=== PATIENT | female | born 1970 | race Caucasian/White ===

== ENCOUNTER → 2016-10-11 | Outpatient (CLI) | payer MEDICARE, MEDICAID | LOC: WI 13:04 | PROVIDERS: ATTEND Nurse Practitioner | DX: Z12.31 Encounter for screening mammogram for malignant neoplasm of breast (principal) | CPT/HCPCS: 77063; G0202; 77067 ==

== ENCOUNTER → 2017-11-28 | Outpatient (CLI) | payer MEDICARE, MEDICAID ==
--- NOTE | 2017-11-28 15:13 | WOMENS IMAGING REPORT ---
EXAM DESCRIPTION: 3D SCREENING MAMMO BILAT COMPLETED DATE/TIME: 11/28/2017 1:51 pm REASON FOR STUDY: ROUTINE SCREENING;Z12.31 Z12.31 ENCNTR SCREEN MAMMOGRAM FOR MALIGNANT NEOPLASM OF [place] COMPARISON: 2017 TECHNIQUE: Standard craniocaudal and mediolateral oblique views of each breast recorded using digita l acquisition and breast tomosynthesis. LIMITATIONS: None. FINDINGS: No masses, calcifications or architectural distortion. No areas of suspicion. Read with the assistance of CAD. .[facility] - R2 Cenova Version 1.3 .[facility] - R2 Cenova Version 1.3 .[facility] - R2 Cenova Version 2.4 .[facility] [place] Cenova [place] 2.4 .[facility] - R2 Seed [employer]one Picker Version 9.2 IMPRESSION: NORMAL MAMMOGRAM. BIRADS 1. BREAST DENSITY: d. The breasts are extremely dense, which lowers the sensitivity of mammography. BIRAD: 1 NEGATIVE RECOMMENDATION: ROUTINE SCREENING COMMENT: The patient has been notified of the results by letter per SA requirements. Additional no tification policies are in place for contacting patient with suspicious or incomplete findings. Quality ID #[id number]: The [employer] recommends an annual screening mammogram for women aged 40 years or over. This facility utilizes a reminder system to ensure that all patients receive reminder letters, and/or direct phone calls for appointments. This includes reminders for routine scr eening mammograms, diagnostic mammograms, or other Breast Imaging Interventions when appropriate. Th is patient will be placed in the appropriate reminder system. The [employer] (ACR) has developed recommendations for screening MRI of the breast s in certain patient populations, to be used in conjunction with mammography. Breast MRI surveillanc e may be appropriate for women with more than 20% lifetime risk of developing breast cancer as deter mined by genetic testing, significant family history of the disease, or history of mantle radiation f or Hodgkins Disease. ACR Practice Guidelines 2008. DBT Technology DBT is a type of tomographic mammography. With conventional mammography, overlapping breast tissue ma y make lesions difficult to detect, even with good compression. DBT uses an x-ray tube that rotates a round the breast, taking images at different angles. These images are then combined to create thin sl ices of the breast that the radiologist can view as a 3D reconstruction. The [facility] unit can perform full-field digital mammograms (2D imaging); or DBT (3D imaging); or both, in a combination mode that quickly performs both the mammogram and the tomosynthesis scan while the breast is still compressed. PQRS 6045F: Fluoroscopic imaging is not utilized for breast tomosynthesis. TECHNICAL DOCUMENTATION: FINDING NUMBER: (1) ASSESSMENT: (1) JOB ID: [id number] [employer]- All Rights Reserved Reading location - IP/workstation name: [id number]
== END ==
LOC: WI 13:21
PROVIDERS: ATTEND Nurse Practitioner
DX: Z12.31 Encounter for screening mammogram for malignant neoplasm of breast (principal)
CPT/HCPCS: 77063; 77067

== ENCOUNTER 2019-05-09 17:38 | Emergency (ER) | payer MEDICARE, MEDICAID ==
[2019-05-09] MEDS ORDERED: DEXTROSE 50%-WATER 25 GM/50 ML DISP.SYRIN IV ONE (17:43)
--- NOTE | 2019-05-09 17:54 | ER Document Report ---
ED Medical Screen (RME) - General Chief Complaint: Low Blood Sugar Stated Complaint: ABNORMAL LABS Time Seen by Provider: 05/09/19 17:42 Primary Care Provider: ROD DECKER FNP [Primary Care Provider] - Follow up as needed Mode of Arrival: Ambulatory Information source: Patient Notes: 49-year-old female presented to ED with her . While she was here she states she thought her blood sugar dropping. Her Accu-Chek was 38. She was given orange juice peanut butter crackers and D50 IV. Labs have been sent to include a VBG and lactic acid. Patient is alert oriented respirations regular and unlabored she was able to drink the orange juice and eat a peanut butter and crackers. I have greeted and performed a rapid initial assessment of this patient. A comprehensive ED assessment and evaluation of the patient, analysis of test results and completion of medical decision making process will be conducted by an additional ED providers. TRAVEL OUTSIDE OF THE [place] IN LAST 30 DAYS: No - Related Data Allergies/Adverse Reactions: aspirin [Aspirin] Allergy (Unknown, Verified 05/09/19 17:41) Past Medical History - Social History Family history: None Pulmonary Medical History: Denies: Hx Tuberculosis Endocrine Medical History: Reports: Hx Diabetes Mellitus Type 1 Skin Medical History: Denies Hx MRSA Psychiatric Medical History: Reports: Hx Depression - Immunizations Hx Diphtheria, Pertussis, Tetanus Vaccination: Yes Doctor's Discharge - Discharge Referrals: ROD DECKER FNP [Primary Care Provider] - Follow up as needed
[2019-05-09 18:15] LABS: ABSOLUTE BASOPHILS # (AUTO) 0.1 10^3/uL (0.0-0.2); ABSOLUTE EOSINOPHILS # (AUTO) 0.1 10^3/uL (0.0-0.6); ABSOLUTE LYMPHOCYTES (AUTO) 1.9 10^3/uL (0.5-4.7); ABSOLUTE MONOCYTES (AUTO) 0.8 10^3/uL (0.1-1.4); ABSOLUTE NEUT (AUTO) 4.6 10^3/uL (1.7-8.2); BASOPHILS % (AUTO) 1.3 % (0-2); EOSINOPHILS % (AUTO) 1.4 % (0-6); HEMATOCRIT 35.3 % (36.0-47.0); HEMOGLOBIN 11.6 g/dL (12.0-15.5); LYMPHOCYTES % (AUTO) 25.5 % (13-45); MEAN CORPUSCULAR HEMOGLOBIN 29.6 pg (27.0-33.4); MEAN CORPUSCULAR HGB CONC 32.8 g/dL (32.0-36.0); MEAN CORPUSCULAR VOLUME 90 fl (80-97); MONOCYTES % (AUTO) 10.7 % (3-13); PLATELET COUNT 345 10^3/uL (150-450); RED BLOOD COUNT 3.92 10^6/uL (3.72-5.28); RED CELL DISTRIBUTION WIDTH 15.4 % (11.5-14.0); SEGMENTED NEUTROPHILS % (AUTO) 61.1 % (42-78); TOTAL CELLS COUNTED % (AUTO) 100 %; WHITE BLOOD COUNT 7.5 10^3/uL (4.0-10.5)
[2019-05-09 18:25] LABS: VENOUS BLOOD BASE EXCESS 0.7 mmol/L; VENOUS BLOOD HCO3 27.2 mmol/L (20-32); VENOUS BLOOD PCO2 52.3 mmHg (35-63); VENOUS BLOOD PH 7.33 (7.30-7.42)
[2019-05-09 18:30] LABS: ALBUMIN 3.6 g/dL (3.5-5.0); ALKALINE PHOSPHATASE 63 U/L (38-126); ANION GAP 8 (5-19); ASPARTATE AMINO TRANSFERASE 78 U/L (14-36); BILIRUBIN,DIRECT 0.1 mg/dL (0.0-0.4); BILIRUBIN,TOTAL 0.3 mg/dL (0.2-1.3); BLOOD UREA NITROGEN 8 mg/dL (7-20); CALCIUM 9.3 mg/dL (8.4-10.2); CARBON DIOXIDE 27 mmol/L (22-30); CHLORIDE 107 mmol/L (98-107); POTASSIUM 3.4 mmol/L (3.6-5.0); TOTAL PROTEIN 6.8 g/dL (6.3-8.2)
[2019-05-09 18:43] LABS: GLUCOSE 36 mg/dL (75-110)
--- NOTE | 2019-05-09 18:59 | ER Document Report ---
ED General - General Chief Complaint: Low Blood Sugar Stated Complaint: ABNORMAL LABS Time Seen by Provider: 05/09/19 17:42 Primary Care Provider: ROD DECKER FNP [Primary Care Provider] - Follow up as needed Mode of Arrival: Ambulatory TRAVEL OUTSIDE OF THE [place] IN LAST 30 DAYS: No - HPI Notes: Patient is a 49-year-old female, known diabetic, presents to the emergency department for evaluation of low blood sugar. Actually she was here with her , who had chest pain. He was brought in for further evaluation. While here she felt as if her sugar was dropping. She was diaphoretic. Her blood sugar was checked and found to be in the 30s. She just recently started Tresiba. She states this was about 6 weeks ago. She states she has had a few lows in the last week. She states she would late eating dinner tonight, so she believes that to be the cause. She has had no vomiting. No other changes in diet or activity level. She denies any pain of any sort. Past Medical History - General Information source: Patient - Social History Smoking Status: Former Smoker Chew tobacco use (# tins/day): No Frequency of alcohol use: Rare Drug Abuse: None Family History: Reviewed & Not Pertinent Patient has suicidal ideation: No Patient has homicidal ideation: No Pulmonary Medical History: Denies: Hx Tuberculosis Endocrine Medical History: Reports: Hx Diabetes Mellitus Type 1 Skin Medical History: Denies Hx MRSA Psychiatric Medical History: Reports: Hx Depression - Immunizations Hx Diphtheria, Pertussis, Tetanus Vaccination: Yes Review of Systems - Review of Systems Constitutional: See HPI EENT: No symptoms reported Cardiovascular: No symptoms reported Respiratory: No symptoms reported Gastrointestinal: No symptoms reported Genitourinary: No symptoms reported Musculoskeletal: No symptoms reported Skin: No symptoms reported Neurological/Psychological: No symptoms reported Physical Exam - Vital signs Vitals: Temp Pulse Resp BP Pulse Ox 97.8 F 87 15 113/69 96 05/09/19 20:37 05/09/19 20:37 05/09/19 20:37 05/09/19 20:37 05/09/19 20:37 - Notes Notes: Vital signs reviewed, please refer to chart. Head is normocephalic, atraumatic. Pupils equal round, reactive to light. Neck is supple without meningismus. Heart is regular rate and rhythm. Lungs are clear to auscultation bilaterally. Abdomen is soft, nontender, normoactive bowel sounds throughout. Extremities without cyanosis, clubbing. Posterior calves are nontender. Peripheral pulses are equal. Skin is warm and dry. Patient is awake, alert, neurological exam is nonfocal. Course - Re-evaluation Re-evalutation: 05/09/19 18:59 Patient presents emergency department for evaluation. Her initial blood glucose was extremely low. She was given dextrose. She became awake and alert. Recheck blood glucose was in the 80s. She is further given food. We will continue to monitor. 05/09/19 20:41 Patient's blood sugar remained within normal limits. She is feeling improved. She is when she needs to continue eating regular meals, discuss whether or not her current insulin dose is appropriate. She voiced understanding to this and was discharged. - Vital Signs Vital signs: Temp Pulse Resp BP Pulse Ox 97.8 F 87 15 113/69 96 05/09/19 20:37 05/09/19 20:37 05/09/19 20:37 05/09/19 20:37 05/09/19 20:37 - Laboratory Result Diagrams: 05/09/19 17:50 05/09/19 17:50 Laboratory results interpreted by me: 05/09/19 05/09/19 05/09/19 17:50 17:50 20:19 Hgb 11.6 L Hct 35.3 L RDW 15.4 H Potassium 3.4 L Creatinine 0.42 L Glucose 36 L* POC Glucose 117 H AST 78 H Discharge - Discharge Clinical Impression: Hypoglycemia Condition: Stable Disposition: HOME, SELF-CARE Instructions: Hypoglycemia ([facility]) Additional Instructions: He should follow-up with your primary care physician next week. Please try to eat your meals at regular intervals. He should discuss with your primary care provider whether your insulin dose is appropriate for you at this time. If you develop worsening or new concerning symptoms of any sort, return immediately to the emergency department for evaluation. Referrals: ROD DECKER FNP [Primary Care Provider] - Follow up as needed
[2019-05-09] MEDS ORDERED: ACETAMINOPHEN 325 MG TABLET ONE (20:26)
[2019-05-09 20:38] VITALS: BP 113/69
== END 2019-05-09 20:45 | disposition home or self-care (01) ==
LOC: ER 17:38
DX: E10.649 Type 1 diabetes mellitus with hypoglycemia without coma (principal); Z87.891 Personal history of nicotine dependence
CPT/HCPCS: 99283; 96374; 36415; 82962; 83690; 85025; 80053; 82803; A9270; J3490

== ENCOUNTER 2019-10-23 13:06 | Inpatient (IN) | payer MEDICARE, MEDICAID ==
[2019-10-23] MEDS ORDERED: DILTIAZEM HCL/D5W 125 MG/125 ML RTUINJ IV PRN (13:39)
[2019-10-23] MEDS ORDERED: DILTIAZEM HCL INJ 25 MG/5 ML VIAL IV ONE (13:39)
[2019-10-23] MEDS ORDERED: NORMAL SALINE 1000 ML 1,000 ML IV ONE (13:39)
[2019-10-23 13:44] LABS: ABSOLUTE BASOPHILS # (AUTO) 0.1 10^3/uL (0.0-0.2); ABSOLUTE EOSINOPHILS # (AUTO) 0.1 10^3/uL (0.0-0.6); ABSOLUTE LYMPHOCYTES (AUTO) 1.3 10^3/uL (0.5-4.7); ABSOLUTE MONOCYTES (AUTO) 0.4 10^3/uL (0.1-1.4); ABSOLUTE NEUT (AUTO) 4.6 10^3/uL (1.7-8.2); EOSINOPHILS % (AUTO) 2.1 % (0-6); HEMATOCRIT 37.1 % (36.0-47.0); HEMOGLOBIN 12.6 g/dL (12.0-15.5); LYMPHOCYTES % (AUTO) 19.9 % (13-45); MEAN CORPUSCULAR HEMOGLOBIN 30.6 pg (27.0-33.4); MEAN CORPUSCULAR HGB CONC 33.9 g/dL (32.0-36.0); MEAN CORPUSCULAR VOLUME 90 fl (80-97); MONOCYTES % (AUTO) 5.9 % (3-13); PLATELET COUNT 276 10^3/uL (150-450); RED BLOOD COUNT 4.11 10^6/uL (3.72-5.28); RED CELL DISTRIBUTION WIDTH 16.4 % (11.5-14.0); SEGMENTED NEUTROPHILS % (AUTO) 71.1 % (42-78); TOTAL CELLS COUNTED % (AUTO) 100 %; WHITE BLOOD COUNT 6.4 10^3/uL (4.0-10.5)
[2019-10-23 13:56] LABS: ALBUMIN 3.4 g/dL (3.5-5.0); ALKALINE PHOSPHATASE 95 U/L (38-126); ANION GAP 8 (5-19); ASPARTATE AMINO TRANSFERASE 42 U/L (14-36); BILIRUBIN,DIRECT 0.3 mg/dL (0.0-0.4); BILIRUBIN,TOTAL 0.4 mg/dL (0.2-1.3); BLOOD UREA NITROGEN 9 mg/dL (7-20); CALCIUM 9.1 mg/dL (8.4-10.2); CARBON DIOXIDE 26 mmol/L (22-30); CHLORIDE 107 mmol/L (98-107); CREATINE KINASE 75 U/L (30-135); GLUCOSE 167 mg/dL (75-110); POTASSIUM 4.2 mmol/L (3.6-5.0); TOTAL PROTEIN 6.6 g/dL (6.3-8.2)
[2019-10-23 14:07] LABS: CREATINE KINASE MB 1.31 ng/mL (<4.55)
--- NOTE | 2019-10-23 14:07 | RADIOLOGY REPORT (SQ) ---
EXAM DESCRIPTION: CHEST SINGLE VIEW COMPLETED DATE/TIME: 10/23/2019 1:55 pm REASON FOR STUDY: bed 6 difiiculty breathing COMPARISON: None. EXAM PARAMETERS: NUMBER OF VIEWS: One view. TECHNIQUE: An AP view of the chest was obtained. RADIATION DOSE: NA LIMITATIONS: None. FINDINGS: LUNGS AND PLEURA: Bilateral perihilar opacities. The costophrenic sulci are blunted. The re is no pneumothorax. MEDIASTINUM AND HILAR STRUCTURES: Indistinctness of the waqas. HEART AND VASCULAR STRUCTURES: The cardiac silhouette is enlarged. BONES: Contour deformities of several left-sided ribs. HARDWARE: None in the chest. OTHER: No other finding. IMPRESSION: Bilateral perihilar opacities. Correlate with clinical findings for multifocal pneumoni a and pulmonary edema. TECHNICAL DOCUMENTATION: JOB ID: [id number]- All Rights Reserved Reading location - IP/workstation name: [email or web address]
[2019-10-23 14:10] LABS: TROPONIN I < 0.012 ng/mL
[2019-10-23 14:18] LABS: A TYPE INFLUENZA AG NEGATIVE (NEGATIVE); B INFLUENZA AG NEGATIVE (NEGATIVE)
[2019-10-23 15:37] LABS: APPEARANCE,URINE CLOUDY; BILIRUBIN,URINE NEGATIVE (NEGATIVE); COLOR,URINE AMBER; GLUCOSE, URINE NEGATIVE (NEGATIVE); KETONES,URINE NEGATIVE (NEGATIVE); LEUKOCYTE ESTERASE,URINE LARGE (NEGATIVE); NITRITE,URINE POSITIVE (NEGATIVE); PROTEIN,URINE 100 mg/dL (NEGATIVE); URINE SPECIFIC GRAVITY 1.015
[2019-10-23] MEDS ORDERED: ACETAMINOPHEN 325 MG TABLET PO ONE (15:38)
[2019-10-23] MEDS ORDERED: FUROSEMIDE INJ/PF 40 MG/4 ML SDV IV ONE (16:34)
[2019-10-23] MEDS ORDERED: CEFTRIAXONE 1 GM/D5W RTU 1 GM/50 ML RTUPB IV ONE (16:34)
--- NOTE | 2019-10-23 17:11 | ER Document Report ---
ED General - General Chief Complaint: Irregular Pulse Stated Complaint: SHORTNESS OF BREATH Primary Care Provider: ROD DECKER FNP [Primary Care Provider] - Follow up as needed Mode of Arrival: Medic Information source: Patient, Emergency Med Personnel, [facility] Records Notes: Patient is a 49-year-old female presenting to the emergency department chief complaint of shortness of breath and palpitations. Patient states that it started about 11 AM this morning she states that when she woke up she had a cough and was short of breath which was new for her. Patient does have a prior history of diabetes and congestive heart failure. Patient denies travel history trauma history sick contacts bad food exposure or any change in medications. TRAVEL OUTSIDE OF THE [place] IN LAST 30 DAYS: No - Related Data Allergies/Adverse Reactions: No Known Allergies Allergy (Unverified 10/23/19 13:27) Past Medical History - Social History Smoking Status: Former Smoker Family History: Reviewed & Not Pertinent Patient has suicidal ideation: No Patient has homicidal ideation: No - Past Medical History Cardiac Medical History: Reports: Hx Hypercholesterolemia, Hx Hypertension Pulmonary Medical History: Reports: Hx Asthma Denies: Hx Tuberculosis Endocrine Medical History: Reports: Hx Diabetes Mellitus Type 1 Skin Medical History: Denies Hx MRSA Psychiatric Medical History: Reports: Hx Depression - Immunizations Hx Diphtheria, Pertussis, Tetanus Vaccination: Yes Review of Systems - Review of Systems Notes: REVIEW OF SYSTEMS: CONSTITUTIONAL : Denies fever, chills, or sweats. Denies recent illness. EENT: Denies eye, ear, throat, or mouth pain or symptoms. Denies nasal or sinus congestion. CARDIOVASCULAR: Denies chest pain. RESPIRATORY: Denies cough, cold, or chest congestion. Denies shortness of breath, difficulty breathing, or wheezing. GASTROINTESTINAL: Denies abdominal pain. Denies nausea, vomiting, or diarrhea. Denies constipation. GENITOURINARY: Denies difficulty urinating, painful urination, burning, jose quency, or blood in urine. MUSCULOSKELETAL: Denies neck or back pain or joint pain or swelling. SKIN: Denies rash or skin lesions. HEMATOLOGIC : Denies easy bruising or bleeding. NEUROLOGICAL: Denies altered mental status or loss of consciousness. Denies headache. Denies weakness or paralysis or loss of use of either side. Denies problems with gait or speech. Denies sensory or motor loss. PSYCHIATRIC: Denies suicidal or homicidal ideations 10 Systems are negative unless otherwise specified above Physical Exam - Vital signs Vitals: Temp Pulse Resp BP Pulse Ox 98.2 F 126 H 26 H 99/79 L 96 10/23/19 13:25 10/23/19 13:25 10/23/19 13:25 10/23/19 13:25 10/23/19 13:25 - Notes Notes: PHYSICAL EXAMINATION: GENERAL: Well-appearing, well-nourished and in no acute distress. HEAD: Atraumatic, normocephalic. EYES: Pupils equal round and reactive to light, extraocular movements intact, sclera anicteric, conjunctiva are normal. ENT: nares patent, oropharynx clear without exudates. Moist mucous membranes. NECK: Normal range of motion, supple without lymphadenopathy, no appreciable JVD LUNGS: Lungs clear to auscultation bilaterally and equal. No wheezes rales or rhonchi. HEART: Regular rate and rhythm without murmurs ABDOMEN: Soft, nontender, normal bowel sounds. No guarding, no rebound. No masses appreciated. EXTREMITIES: Active full range of motion, no pitting or edema. No cyanosis. 2+ pulses x4 NEUROLOGICAL: No focal neurological deficits. Moves all extremities spontaneously and on command. SKIN: Warm, Dry, and intact. Normal turgor, no rashes or lesions noted. Course - Re-evaluation Re-evalutation: 10/23/19 17:08 Patient has been maintained on a roof plumber the entire time in the emergency department. Patient has remained at baseline. On presentation patient was hypotensive. Patient was given a liter IV fluids for blood pressure support. Labs EKG and radiologic studies were ordered. Patient did receive amiodarone in route by EMS. Cardizem has been ordered however held because of the patient's low blood pressure. Review of labs EKG and radiologic studies demonstrate bilateral opacities congestive heart failure exacerbation atrial fibrillation with mild tachycardia and a urinary tract infection. Patient was also tested for lactic acid and blood cultures. Patient was given Rocephin 1 g IV for management of opacity omi picious for pneumonia and as well as the UTI. Patient was given 40 mg IV Lasix secondary to management of congestive heart failure. I have spoken to the patient at great length she is in agreement with admission. I did speak with the hospitalist who is agreeable with admission. They state that they will examine the patient and decide whether or not to start the Cardizem for rate and rhythm management. - Vital Signs Vital signs: Temp Pulse Resp BP Pulse Ox 98.2 F 126 H 20 94/69 L 99 10/23/19 13:25 10/23/19 13:25 10/23/19 16:01 10/23/19 16:01 10/23/19 16:01 - Laboratory Result Diagrams: 10/23/19 13:05 10/23/19 13:05 Laboratory results interpreted by me: 10/23/19 10/23/19 10/23/19 13:05 13:05 13:05 RDW 16.4 H Creatinine 0.48 L Glucose 167 H AST 42 H ALT 39 H NT-Pro-B Natriuret Pep 2370 H Albumin 3.4 L Urine Protein Urine Blood Urine Nitrite Urine Urobilinogen Ur Leukocyte Esterase 10/23/19 15:18 RDW Creatinine Glucose AST ALT NT-Pro-B Natriuret Pep Albumin Urine Protein 100 H Urine Blood MODERATE H Urine Nitrite POSITIVE H Urine Urobilinogen 2.0 H Ur Leukocyte Esterase LARGE H - Diagnostic Test Radiology reviewed: Reports reviewed - EKG Interpretation by Me Rate: Normal Rhythm: A.Fib When compared to previous EKG there are: Previous EKG unavailable Critical Care Note - Critical Care Note Total time excluding time spent on procedures (mins): 35 Comments: Please allow 35 minutes of critical care time exclusive of separately billable procedures for consultation with patient and hospitalist as well as medical management of this critically ill patient. Discharge - Discharge Clinical Impression: Pleural effusion A-fib Qualifiers: Atrial fibrillation type: unspecified Qualified Code(s): I48.91 - Unspecified atrial fibrillation UTI (urinary tract infection) Qualifiers: Urinary tract infection type: site unspecified Hematuria presence: with hematuria Qualified Code(s): N39.0 - Urinary tract infection, site not specified; R31.9 - Hematuria, unspecified CHF exacerbation Qualifiers: Heart failure type: unspecified Qualified Code(s): I50.9 - Heart failure, unspecified Condition: Fair Disposition: ADMITTED OBSERVATION Admitting Provider: Aram (Hospitalist) Unit Admitted: IMCU Referrals: ROD DECKER FNP [Primary Care Provider] - Follow up as needed
[2019-10-23] MEDS ORDERED: LEVALBUTEROL HCL NEB 1.25 MG/3 ML AMPUL NEB PRN (18:09)
[2019-10-23] MEDS ORDERED: AZITHROMYCIN 250 MG TABLET PO ONE (18:17)
[2019-10-23] MEDS ORDERED: DIGOXIN INJ 0.5 MG/2 ML AMPULE IV ONE (18:18)
--- NOTE | 2019-10-23 18:22 | PDOC PROGRESS REPORT ---
Subjective Progress Note for:: 10/23/19 Subjective:: sob, cough Reason For Visit: AFIB,UTI,CHF EXACERBATION,PLEURAL EFFUSION Physical Exam Vital Signs: Temp Pulse Resp BP Pulse Ox 98.2 F 126 H 19 106/80 100 10/23/19 13:25 10/23/19 13:25 10/23/19 17:31 10/23/19 17:31 10/23/19 17:31 Intake & Output 10/22/19 10/23/19 10/24/19 06:59 06:59 06:59 Intake Total 1050 Balance 1050 Weight 80.286 kg Results Laboratory Results: 10/23/19 13:05 10/23/19 13:05 10/23/19 10/23/19 10/23/19 13:05 13:05 15:18 WBC 6.4 RBC 4.11 Hgb 12.6 Hct 37.1 MCV 90 MCH 30.6 MCHC 33.9 RDW 16.4 H Plt Count 276 Seg Neutrophils % 71.1 Sodium 140.7 Potassium 4.2 Chloride 107 Carbon Dioxide 26 Anion Gap 8 BUN 9 Creatinine 0.48 L Est GFR ( Amer) > 60 Glucose 167 H Lactic Acid Calcium 9.1 Total Bilirubin 0.4 AST 42 H Alkaline Phosphatase 95 Total Protein 6.6 Albumin 3.4 L Urine Color JACQUIE Urine Appearance CLOUDY Urine pH 5.0 Ur Specific [place] 1.015 Urine Protein 100 H Urine Glucose (UA) NEGATIVE Urine Ketones NEGATIVE Urine Blood MODERATE H Urine Nitrite POSITIVE H Ur Leukocyte Esterase LARGE H Urine WBC (Auto) >182 Urine RBC (Auto) 8 10/23/19 17:19 WBC RBC Hgb Hct MCV MCH MCHC RDW Plt Count Seg Neutrophils % Sodium Potassium Chloride Carbon Dioxide Anion Gap BUN Creatinine Est GFR ( Amer) Glucose Lactic Acid 0.7 Calcium Total Bilirubin AST Alkaline Phosphatase Total Protein Albumin Urine Color Urine Appearance Urine pH Ur Specific [place] Urine Protein Urine Glucose (UA) Urine Ketones Urine Blood Urine Nitrite Ur Leukocyte Esterase Urine WBC (Auto) Urine RBC (Auto) 10/23/19 10/23/19 10/23/19 13:05 13:05 13:05 Creatine Kinase 75 CK-MB (CK-2) 1.31 Troponin I < 0.012 NT-Pro-B Natriuret Pep 2370 H Impressions: Chest X-Ray 10/23/19 13:27 IMPRESSION: Bilateral perihilar opacities. Correlate with clinical findings for multifocal pneumonia and pulmonary edema.
[2019-10-23] MEDS ORDERED: GLUCAGON,HUMAN RECOMB 1 MG INJ IM PRN (19:09)
[2019-10-23] MEDS ORDERED: DEXTROSE 50%-WATER 25 GM/50 ML DISP.SYRIN IV PRN (19:09)
[2019-10-23] MEDS ORDERED: DEXTROSE 40% GEL 15 GM TUBE PO PRN ×2 (19:09)
--- NOTE | 2019-10-23 19:25 | PDOC H&P ---
History of Present Illness Admission Date/PCP: 10/23/19 18:10 JAMAR IQBAL Patient complains of: Cough, shortness of breath History of Present Illness: URSZULA VANEGAS is a 49 year old female with a history of asthma, type 1 diabetes mellitus, heart murmur, who presents to the hospital with complaints of cough and shortness of breath. Symptoms have been ongoing for the past 1 week. Patient admits to a dry cough without sputum production. Patient also admits to dyspnea on exertion which has been progressive. Denies any fever or chills. Admits to orthopnea which has been chronic for most of his life. Admits to recent PND. Denies any significant swelling. Also admits to dysuria. Denies prior history of atrial fibrillation or congestive heart failure. Past Medical History Cardiac Medical History: Reports: Hyperlipidema, Hypertension Pulmonary Medical History: Reports: Asthma Denies: Tuberculosis Endocrine Medical History: Reports: Diabetes Mellitus Type 1 Psychiatric Medical History: Reports: Depression Past Surgical History Past Surgical History: Reports: Other Social History Smoking Status: Former Smoker Frequency of Alcohol Use: None Hx Recreational Drug Use: No Hx Prescription Drug Abuse: No - Advance Directive Resuscitation Status: Full Code Family History Family History: Reviewed & Not Pertinent Parental Family History Reviewed: Yes Children Family History Reviewed: NA Sibling(s) Family History Reviewed.: NA Medication/Allergy Home Medications: Duloxetine HCl [Cymbalta] 60 mg PO DAILY 07/18/13 Insulin Aspart [Novolog Flexpen] 0 unit SUBCUT .SLD SCALE 07/18/13 Insulin Glargine,Hum.rec.anlog [Lantus Solostar] 30 unit SQ DAILY 07/18/13 Omeprazole [Prilosec] 40 mg PO DAILY 07/18/13 Polyethylene Glycol 3350 [Miralax] 1 packet PO 07/20/13 Allergies/Adverse Reactions: No Known Allergies Allergy (Unverified 10/23/19 13:27) Review of Systems Constitutional: ABSENT: chills, fatigue, fever(s) Nose, Mouth, and Throat: ABSENT: headache(s) Cardiovascular: PRESENT: dyspnea on exertion Respiratory: PRESENT: cough, dyspnea Gastrointestinal: PRESENT: bloating. ABSENT: abdominal pain Genitourinary: PRESENT: dysuria Musculoskeletal: ABSENT: back pain Integumentary: ABSENT: diaphoresis Neurological: ABSENT: confusion Psychiatric: ABSENT: anxiety Endocrine: ABSENT: polyuria Allergic/Immunologic: PRESENT: seasonal rhinorrhea Physical Exam Vital Signs: Temp Pulse Resp BP Pulse Ox 98.2 F 126 H 17 98/73 L 99 10/23/19 13:25 10/23/19 13:25 10/23/19 19:01 10/23/19 19:01 10/23/19 19:01 Intake & Output 10/22/19 10/23/19 10/24/19 06:59 06:59 06:59 Intake Total 1050 Balance 1050 Weight 80.286 kg General appearance: PRESENT: no acute distress, cooperative Head exam: PRESENT: other - Acromegaly Eye exam: ABSENT: scleral icterus Mouth exam: PRESENT: neck supple Neck exam: ABSENT: JVD Respiratory exam: PRESENT: crackles, symmetrical, unlabored. ABSENT: tachypnea, wheezes Cardiovascular exam: PRESENT: irregular rhythm, +S1, +S2, tachycardia GI/Abdominal exam: PRESENT: normal bowel sounds, soft, tenderness. ABSENT: distended, firm, guarding, rebound, rigid Extremities exam: PRESENT: pedal edema, +1 edema Neurological exam: PRESENT: alert, awake, oriented to person, oriented to place, oriented to time, oriented to situation Psychiatric exam: ABSENT: agitated, anxious Focused psych exam: ABSENT: pressured speech Skin exam: ABSENT: jaundice Results Laboratory Results: 10/23/19 13:05 10/23/19 13:05 10/23/19 10/23/19 10/23/19 13:05 13:05 15:18 WBC 6.4 RBC 4.11 Hgb 12.6 Hct 37.1 MCV 90 MCH 30.6 MCHC 33.9 RDW 16.4 H Plt Count 276 Seg Neutrophils % 71.1 Sodium 140.7 Potassium 4.2 Chloride 107 Carbon Dioxide 26 Anion Gap 8 BUN 9 Creatinine 0.48 L Est GFR ( Amer) > 60 Glucose 167 H Lactic Acid Calcium 9.1 Total Bilirubin 0.4 AST 42 H Alkaline Phosphatase 95 Total Protein 6.6 Albumin 3.4 L Urine Color JACQUIE Urine Appearance CLOUDY Urine pH 5.0 Ur Specific [place] 1.015 Urine Protein 100 H Urine Glucose (UA) NEGATIVE Urine Ketones NEGATIVE Urine Blood MODERATE H Urine Nitrite POSITIVE H Ur Leukocyte Esterase LARGE H Urine WBC (Auto) >182 Urine RBC (Auto) 8 10/23/19 17:19 WBC RBC Hgb Hct MCV MCH MCHC RDW Plt Count Seg Neutrophils % Sodium Potassium Chloride Carbon Dioxide Anion Gap BUN Creatinine Est GFR ( Amer) Glucose Lactic Acid 0.7 Calcium Total Bilirubin AST Alkaline Phosphatase Total Protein Albumin Urine Color Urine Appearance Urine pH Ur Specific [place] Urine Protein Urine Glucose (UA) Urine Ketones Urine Blood Urine Nitrite Ur Leukocyte Esterase Urine WBC (Auto) Urine RBC (Auto) 10/23/19 10/23/19 10/23/19 13:05 13:05 13:05 Creatine Kinase 75 CK-MB (CK-2) 1.31 Troponin I < 0.012 NT-Pro-B Natriuret Pep 2370 H Impressions: Chest X-Ray 10/23/19 13:27 IMPRESSION: Bilateral perihilar opacities. Correlate with clinical findings for multifocal pneumonia and pulmonary edema. Assessment and Plan - Diagnosis (1) Atrial fibrillation with rapid ventricular response Is this a current diagnosis for this admission?: Yes Plan: New diagnosis for patient. Given soft blood pressures, I will hold off on diltiazem drip for now and give digoxin load IV. CHADSVASC of 2. Will start on therapeutic anticoagulation with Lovenox. IV Lopressor as needed. Will consult cardiology. (2) Acute congestive heart failure Qualifiers: Heart failure type: unspecified Qualified Code(s): I50.9 - Heart failure, unspecified Is this a current diagnosis for this admission?: Yes Plan: New onset for patient EF undetermined. Chest x-ray does show cephalization with evidence of pulmonary edema though also shows what could be underlying opacities potentially both pneumonia and CHF. BNP significantly elevated as well. Patient denies any prior history. Received 40 mg IV Lasix today. I will hold off on further diuresis for now until patient blood pressure stabilized. Strict I's and O's, fluid restriction, cardiology consultation. Check echocardiogram. (3) Community acquired pneumonia Qualifiers: Laterality: unspecified laterality Qualified Code(s): J18.9 - Pneumonia, unspecified organism Is this a current diagnosis for this admission?: Yes Plan: Possible pneumonia on chest x-ray though may be obscured by pulmonary edema. Will empirically treat with ceftriaxone and azithromycin. Will await blood cultures and check sputum culture. (4) Asthma, chronic Qualifiers: Asthma severity: mild Asthma persistence: intermittent Asthma complic ation type: uncomplicated Qualified Code(s): J45.20 - Mild intermittent asthma, uncomplicated Is this a current diagnosis for this admission?: Yes Plan: Stable no evidence of exacerbation at this time. Nebulizers as needed. (5) UTI (urinary tract infection) Qualifiers: Urinary tract infection type: site unspecified Hematuria presence: with hematuria Qualified Code(s): N39.0 - Urinary tract infection, site not specified; R31.9 - Hematuria, unspecified Is this a current diagnosis for this admission?: Yes Plan: Ceftriaxone (6) Diabetes mellitus type 1 Is this a current diagnosis for this admission?: Yes Plan: Lantus 22 units at nighttime. Humalog with meals and sliding scale. (7) Acromegaly Is this a current diagnosis for this admission?: Yes - Time Time Spent with patient: 35 or more minutes
--- NOTE | 2019-10-23 19:44 | EKG REPORT ---
SEVERITY:- ABNORMAL ECG - ATRIAL FIBRILLATION PROBABLE LVH WITH SECONDARY REPOL ABNRM : Confirmed by: Ijeoma Villegas MD 23-Oct-2019 19:43:50
[2019-10-23] MEDS ORDERED: ENOXAPARIN SODIUM INJ 40 MG/0.4 ML DISP.SYRIN SUBCUT SCH (20:00)
[2019-10-23] MEDS: INSULIN LISPRO 100 UNIT/ML 3 ML VIAL SUBCUT SCH (21:47)
[2019-10-23] MEDS: INSULIN GLARGINE,HUM.REC.ANLOG 1,000 UNIT/10 ML VIAL SUBCUT SCH (21:59)
[2019-10-23] MEDS ORDERED: ENOXAPARIN SODIUM INJ 80 MG/0.8 ML DISP.SYRIN SUBCUT SCH (22:00)
[2019-10-24] MEDS: DIGOXIN INJ 0.5 MG/2 ML AMPULE IV SCH ×2 (00:23→06:17)
[2019-10-24] MEDS: DEXTROSE 50%-WATER 25 GM/50 ML DISP.SYRIN IV PRN ×4 (02:02→07:05)
[2019-10-24 06:08] LABS: HEMOGLOBIN 11.2 g/dL (12.0-15.5); MEAN CORPUSCULAR HEMOGLOBIN 29.8 pg (27.0-33.4); MEAN CORPUSCULAR HGB CONC 32.9 g/dL (32.0-36.0); MEAN CORPUSCULAR VOLUME 91 fl (80-97); PLATELET COUNT 248 10^3/uL (150-450); RED BLOOD COUNT 3.76 10^6/uL (3.72-5.28); RED CELL DISTRIBUTION WIDTH 15.9 % (11.5-14.0)
[2019-10-24 06:26] LABS: ANION GAP 10 (5-19); BLOOD UREA NITROGEN 10 mg/dL (7-20); CALCIUM 8.5 mg/dL (8.4-10.2); CARBON DIOXIDE 26 mmol/L (22-30); CHLORIDE 104 mmol/L (98-107); GLUCOSE 106 mg/dL (75-110); PHOSPHORUS 4.6 mg/dL (2.5-4.5); POTASSIUM 4.1 mmol/L (3.6-5.0)
[2019-10-24 06:37] LABS: APPEARANCE,URINE SLIGHTLY-CLOUDY; BILIRUBIN,URINE NEGATIVE (NEGATIVE); COLOR,URINE YELLOW; GLUCOSE, URINE 50 mg/dL (NEGATIVE); KETONES,URINE NEGATIVE (NEGATIVE); LEUKOCYTE ESTERASE,URINE MODERATE (NEGATIVE); NITRITE,URINE NEGATIVE (NEGATIVE); PROTEIN,URINE 30 mg/dL (NEGATIVE); URINE SPECIFIC GRAVITY 1.011
[2019-10-24] MEDS ORDERED: NORMAL SALINE 1000 ML 1,000 ML IV ONE ×2 (07:37→07:57)
[2019-10-24] MEDS: METOPROLOL TARTRATE PF/INJ 5 MG/5 ML SDV IV PRN ×2 (08:43→17:16)
[2019-10-24] MEDS: INSULIN LISPRO 100 UNIT/ML 3 ML VIAL SUBCUT SCH ×7 (08:58→22:22)
[2019-10-24] MEDS ORDERED: MAGNESIUM SULFATE/D5W 1 GM/100 ML RTUPB IV ONE (09:00)
--- NOTE | 2019-10-24 09:42 | PDOC PROGRESS REPORT ---
Subjective Progress Note for:: 10/24/19 Subjective:: 49 year old female with a history of asthma, type 1 diabetes mellitus, heart murmur, who presents to the hospital with complaints of cough and shortness of breath. Symptoms have been ongoing for the past 1 week. Patient admits to a dry cough without sputum production. Patient also admits to dyspnea on exertion which has been progressive. Denies any fever or chills. Admits to orthopnea which has been chronic for most of his life. Admits to recent PND. Denies any significant swelling. Also admits to dysuria. Denies prior history of atrial fibrillation or congestive heart failure. 10/24/[id number]-[id number]-old female with history of CHF and questionable atrial fibrillation came in with cough and shortness of breath. Patient is a poor historian. Found to be in A. fib with RVR she was started on digoxin and Lopressor. Cardiology is consulted at this morning Dr. rodriguezded start on Eliquis 5 mg p.o. twice daily and echocardiogram. In the meantime he was to continue digoxin and Lopressor on PRN basis. He is thinking about probable cardioversion on Sunday. Reason For Visit: CHF, AFIB RVR, HYPOTENSION Physical Exam Vital Signs: Temp Pulse Resp BP Pulse Ox 97.6 F 126 H 20 110/84 97 10/24/19 04:30 10/23/19 13:25 10/24/19 09:15 10/24/19 09:15 10/24/19 09:15 Intake & Output 10/23/19 10/24/19 10/25/19 06:59 06:59 06:59 Intake Total 1050 1000 Balance 1050 1000 Weight 80.286 kg General appearance: PRESENT: no acute distress, well-developed, other - On examination acromegaly features present. Head exam: PRESENT: atraumatic Eye exam: PRESENT: PERRLA Mouth exam: PRESENT: moist, tongue midline Teeth exam: PRESENT: poor dentation Neck exam: ABSENT: carotid bruit, JVD, lymphadenopathy, thyromegaly Respiratory exam: PRESENT: decreased breath sounds Cardiovascular exam: PRESENT: irregular rhythm Pulses: PRESENT: normal dorsalis pedis pul GI/Abdominal exam: PRESENT: other - Soft distended bowel sounds are present. Rectal exam: PRESENT: deferred Extremities exam: PRESENT: full ROM. ABSENT: calf tenderness, clubbing, pedal edema Neurological exam: PRESENT: alert, awake, oriented to person, oriented to place, oriented to time, oriented to situation, CN II-XII grossly intact. ABSENT: motor sensory deficit Psychiatric exam: PRESENT: appropriate affect, normal mood. ABSENT: homicidal ideation, suicidal ideation Results Laboratory Results: 10/24/19 05:15 10/24/19 05:15 10/23/19 10/23/19 10/23/19 13:05 13:05 15:18 WBC 6.4 RBC 4.11 Hgb 12.6 Hct 37.1 MCV 90 MCH 30.6 MCHC 33.9 RDW 16.4 H Plt Count 276 Seg Neutrophils % 71.1 Sodium 140.7 Potassium 4.2 Chloride 107 Carbon Dioxide 26 Anion Gap 8 BUN 9 Creatinine 0.48 L Est GFR ( Amer) > 60 Glucose 167 H Lactic Acid Calcium 9.1 Phosphorus Magnesium Total Bilirubin 0.4 AST 42 H Alkaline Phosphatase 95 Total Protein 6.6 Albumin 3.4 L Urine Color JACQUIE Urine Appearance CLOUDY Urine pH 5.0 Ur Specific [place] 1.015 Urine Protein 100 H Urine Glucose (UA) NEGATIVE Urine Ketones NEGATIVE Urine Blood MODERATE H Urine Nitrite POSITIVE H Ur Leukocyte Esterase LARGE H Urine WBC (Auto) >182 Urine RBC (Auto) 8 10/23/19 10/23/19 10/23/19 17:19 20:05 23:01 WBC RBC Hgb Hct MCV MCH MCHC RDW Plt Count Seg Neutrophils % Sodium Potassium Chloride Carbon Dioxide Anion Gap BUN Creatinine Est GFR ( Amer) Glucose Lactic Acid 0.7 1.0 0.7 Calcium Phosphorus Magnesium Total Bilirubin AST Alkaline Phosphatase Total Protein Albumin Urine Color Urine Appearance Urine pH Ur Specific [place] Urine Protein Urine Glucose (UA) Urine Ketones Urine Blood Urine Nitrite Ur Leukocyte Esterase Urine WBC (Auto) Urine RBC (Auto) 10/24/19 10/24/19 10/24/19 05:15 05:15 06:22 WBC 17.0 H D RBC 3.76 Hgb 11.2 L Hct 34.0 L MCV 91 MCH 29.8 MCHC 32.9 RDW 15.9 H Plt Count 248 Seg Neutrophils % Sodium 139.6 Potassium 4.1 Chloride 104 Carbon Dioxide 26 Anion Gap 10 BUN 10 Creatinine 0.48 L Est GFR ( Amer) > 60 Glucose 106 Lactic Acid Calcium 8.5 Phosphorus 4.6 H Magnesium 1.6 Total Bilirubin AST Alkaline Phosphatase Total Protein Albumin Urine Color YELLOW Urine Appearance SLIGHTLY-CLOUDY Urine pH 5.0 Ur Specific [place] 1.011 Urine Protein 30 H Urine Glucose (UA) 50 H Urine Ketones NEGATIVE Urine Blood SMALL H Urine Nitrite NEGATIVE Ur Leukocyte Esterase MODERATE H Urine WBC (Auto) 175 Urine RBC (Auto) 6 10/23/19 10/23/19 10/23/19 13:05 13:05 13:05 Creatine Kinase 75 CK-MB (CK-2) 1.31 Troponin I < 0.012 NT-Pro-B Natriuret Pep 2370 H Impressions: Chest X-Ray 10/23/19 13:27 IMPRESSION: Bilateral perihilar opacities. Correlate with clinical findings fo r multifocal pneumonia and pulmonary edema. Assessment and Plan - Diagnosis (1) A-fib Qualifiers: Atrial fibrillation type: unspecified Qualified Code(s): I48.91 - Unspecified atrial fibrillation Is this a current diagnosis for this admission?: Yes Plan: 10/24/2019-patient admitted with new onset A. fib with aVR. To start on Eliquis 5 mg p.o. twice daily. Plan is to continue digoxin and Lopressor on PRN basis. Echocardiogram is requested cardiology consult is requested with Dr. Matthew Mina (2) Acromegaly Is this a current diagnosis for this admission?: No Plan: 10/24/2019-patient has history of acromegaly on bromocriptine. Plan is to continue the medication during this hospital stay. (3) Community acquired pneumonia Qualifiers: Laterality: unspecified laterality Qualified Code(s): J18.9 - Pneumonia, unspecified organism Is this a current diagnosis for this admission?: Yes Plan: Possible pneumonia on chest x-ray though may be obscured by pulmonary edema. Will empirically treat with ceftriaxone and azithromycin. Will await blood cultures and check sputum culture. 10/24/2019-chest x-ray suggestive of pneumonia probably community-acquired pneumonia. On ceftriaxone, Zithromax. Blood cultures and sputum cultures are pending. Echocardiogram is requested because there is a questionable pulmonary edema on x-ray. Patient is afebrile. (4) Asthma, chronic Qualifiers: Asthma severity: mild Asthma persistence: intermittent Asthma complication type: uncomplicated Qualified Code(s): J45.20 - Mild intermittent asthma, uncomplicated Is this a current diagnosis for this admission?: No Plan: Stable no evidence of exacerbation at this time. Nebulizers as needed. 2820-patient has history of chronic asthma on examination bilateral entry was decreased no wheezing is present. Plan is to continue nebs on as-needed basis. (5) UTI (urinary tract infection) Qualifiers: Urinary tract infection type: site unspecified Hematuria presence: with hematuria Qualified Code(s): N39.0 - Urinary tract infection, site not specified; R31.9 - Hematuria, unspecified Is this a current diagnosis for this admission?: Yes Plan: Ceftriaxone 10/24/2019-to request for urine culture. To continue ceftriaxone. (6) Diabetes mellitus type 1 Is this a current diagnosis for this admission?: No Plan: Lantus 22 units at nighttime. Humalog with meals and sliding scale. 10/24/19-latest blood sugar is 164. To continue Humalog sliding scale with before meals and at bedtime and Lantus 22 units at night. To check for hemoglobin A1c diet exercise weight loss lifestyle modifications discussed with the patient. (7) Acute congestive heart failure Qualifiers: Heart failure type: unspecified Qualified Code(s): I50.9 - Heart failure, unspecified Is this a current diagnosis for this admission?: Yes Plan: New onset for patient EF undetermined. Chest x-ray does show cephalization with evidence of pulmonary edema though also shows what could be underlying opacities potentially both pneumonia and CHF. BNP significantly elevated as well. Patient denies any prior history. Received 40 mg IV Lasix today. I will hold off on further diuresis for now until patient blood pressure stabilized. Strict I's and O's, fluid restriction, cardiology consultation. Check echocardiogram.
[2019-10-24] MEDS ORDERED: FUROSEMIDE INJ/PF 40 MG/4 ML SDV IV SCH (10:00)
--- NOTE | 2019-10-24 10:47 | PDOC CONSULTATION ---
Consultation Consult Date: 10/24/19 Attending physician:: wilmer Provider Consulted: MOUNIKA MARTINEZ Consult reason:: Atrial fibrillation History of Present Illness Admission Date/PCP: 10/23/19 18:10 JAMAR IQBAL Patient complains of: Palpitations History of Present Illness: URSZULA VANEGAS is a 49 year old female With medical history as follows 1. Pituitary adenoma status post resection 2. Acromegaly 3. Systemic hypertension 49-year-old lady who presents with atrial fibrillation with rapid ventricular response. No prior history of arrhythmia. Reports insidious onset of abdominal distention in the last few weeks. Difficult to say if she has heart failure symptoms. However there is some questionable history of dyspnea. Prior history significant for pituitary adenoma status post resection in patient's teen years. She is unclear about details of the surgery. However she has been maintained on bromocriptine therapy. 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 Patient does not smoke cigarettes. No familial illnesses reported. Past Medical History Cardiac Medical History: Reports: Hyperlipidema, Hypertension Pulmonary Medical History: Reports: Asthma Denies: Tuberculosis Endocrine Medical History: Reports: Diabetes Mellitus Type 1 Psychiatric Medical History: Reports: Depression Past Surgical History Past Surgical History: Reports: Other Social History Smoking Status: Former Smoker Frequency of Alcohol Use: None Hx Recreational Drug Use: No Hx Prescription Drug Abuse: No - Advance Directive Resuscitation Status: Full Code Family History Family History: Reviewed & Not Pertinent Parental Family History Reviewed: No - No familial illnesses Children Family History Reviewed: NA Sibling(s) Family History Reviewed.: NA Medication/Allergy Home Medications: Insulin Aspart [Novolog Flexpen] 0 unit SUBCUT .SLD SCALE 07/18/13 Acetaminophen [Acetaminophen Extra Strength] 500 mg PO DAILYP PRN 10/24/19 Albuterol Sulfate [Albuterol Sulfate Hfa] 2 puff IH BID@0900,199910/24/19 Atorvastatin Calcium [Lipitor 40 mg Tablet] 40 mg PO DAILY@0900 10/24/19 Bromocriptine Mesylate 5 mg PO DAILY@0910/24/19 Icosapent Ethyl [Vascepa] 1 gm PO TID@0800,0900,1700 10/24/19 Insulin Degludec [Tresiba Flextouch U-100] 22 unit SQ QAM 10/24/19 Latanoprost [Xalatan] 1 drop OU DAILY@89910/24/19 Levocetirizine Dihydrochloride [Xyzal] 5 mg PO DAILY@89910/24/19 Lisinopril [Prinivil 10 mg Tablet] 10 mg PO DAILY@89910/24/19 Montelukast Sodium [Singulair 10 mg Tablet] 10 mg PO DAILY@89910/24/19 Timolol Maleate 1 drop OU QHS 10/24/19 Allergies/Adverse Reactions: No Known Allergies Allergy (Unverified 10/23/19 13:27) Review of Systems Constitutional: PRESENT: as per HPI Eyes: PRESENT: as per HPI Ears: PRESENT: as per HPI Nose, Mouth, and Throat: PRESENT: as per HPI Cardiovascular: PRESENT: palpitations Gastrointestinal: PRESENT: other - Abdominal distention Physical Exam Vital Signs: Temp Pulse Resp BP Pulse Ox 97.6 F 126 H 20 110/84 97 10/24/19 04:30 10/23/19 13:25 10/24/19 09:15 10/24/19 09:15 10/24/19 09:15 Intake & Output 10/23/19 10/24/19 10/25/19 06:59 06:59 06:59 Intake Total 1050 1000 Balance 1050 1000 Weight 80.286 kg General appearance: PRESENT: no acute distress, cooperative, well-developed, well-nourished, other - Features of acromegaly are evident. Head exam: PRESENT: atraumatic, normocephalic Eye exam: PRESENT: conjunctiva pink, EOMI Mouth exam: PRESENT: moist Respiratory exam: PRESENT: clear to auscultation patrice, symmetrical, unlabored Cardiovascular exam: PRESENT: RRR, +S1, +S2 GI/Abdominal exam: PRESENT: soft Rectal exam: PRESENT: deferred Neurological exam: PRESENT: alert, awake, oriented to person, oriented to place, oriented to time, oriented to situation Psychiatric exam: PRESENT: appropriate affect Skin exam: PRESENT: dry, intact, normal color Results Laboratory Results: 10/24/19 05:15 10/24/19 05:15 10/23/19 10/23/19 10/23/19 13:05 13:05 15:18 WBC 6.4 RBC 4.11 Hgb 12.6 Hct 37.1 MCV 90 MCH 30.6 MCHC 33.9 RDW 16.4 H Plt Count 276 Seg Neutrophils % 71.1 Sodium 140.7 Potassium 4.2 Chloride 107 Carbon Dioxide 26 Anion Gap 8 BUN 9 Creatinine 0.48 L Est GFR ( Amer) > 60 Glucose 167 H Lactic Acid Calcium 9.1 Phosphorus Magnesium Total Bilirubin 0.4 AST 42 H Alkaline Phosphatase 95 Total Protein 6.6 Albumin 3.4 L Urine Color JACQUIE Urine Appearance CLOUDY Urine pH 5.0 Ur Specific [place] 1.015 Urine Protein 100 H Urine Glucose (UA) NEGATIVE Urine Ketones NEGATIVE Urine Blood MODERATE H Urine Nitrite POSITIVE H Ur Leukocyte Esterase LARGE H Urine WBC (Auto) >182 Urine RBC (Auto) 8 10/23/19 10/23/19 10/23/19 17:19 20:05 23:01 WBC RBC Hgb Hct MCV MCH MCHC RDW Plt Count Seg Neutrophils % Sodium Potassium Chloride Carbon Dioxide Anion Gap BUN Creatinine Est GFR ( Amer) Glucose Lactic Acid 0.7 1.0 0.7 Calcium Phosphorus Magnesium Total Bilirubin AST Alkaline Phosphatase Total Protein Albumin Urine Color Urine Appearance Urine pH Ur Specific [place] Urine Protein Urine Glucose (UA) Urine Ketones Urine Blood Urine Nitrite Ur Leukocyte Esterase Urine WBC (Auto) Urine RBC (Auto) 10/24/19 10/24/19 10/24/19 05:15 05:15 06:22 WBC 17.0 H D RBC 3.76 Hgb 11.2 L Hct 34.0 L MCV 91 MCH 29.8 MCHC 32.9 RDW 15.9 H Plt Count 248 Seg Neutrophils % Sodium 139.6 Potassium 4.1 Chloride 104 Carbon Dioxide 26 Anion Gap 10 BUN 10 Creatinine 0.48 L Est GFR ( Amer) > 60 Glucose 106 Lactic Acid Calcium 8.5 Phosphorus 4.6 H Magnesium 1.6 Total Bilirubin AST Alkaline Phosphatase Total Protein Albumin Urine Color YELLOW Urine Appearance SLIGHTLY-CLOUDY Urine pH 5.0 Ur Specific [place] 1.011 Urine Protein 30 H Urine Glucose (UA) 50 H Urine Ketones NEGATIVE Urine Blood SMALL H Urine Nitrite NEGATIVE Ur Leukocyte Esterase MODERATE H Urine WBC (Auto) 175 Urine RBC (Auto) 6 10/23/19 10/23/19 10/23/19 13:05 13:05 13:05 Creatine Kinase 75 CK-MB (CK-2) 1.31 Troponin I < 0.012 NT-Pro-B Natriuret Pep 2370 H EKG Comments: Twelve-lead EKG 10/23/2019. Independently reviewed by me. Atrial fibrillation with rapid ventricular response 119 bpm Twelve-lead EKG 10/24/2019 Atrial fibrillation rapid ventricular response 157 bpm. Left ventricular hypertrophy. Repolarization abnormality. Telemetry presently shows atrial fibrillation with rapid ventricular response at about 110 bpm. Impressions: Chest X-Ray 10/23/19 13:27 IMPRESSION: Bilateral perihilar opacities. Correlate with clinical findings for multifocal pneumonia and pulmonary edema. Status: Image reviewed by me - Bilateral pulmonary opacities. Multifocal pneumonia versus pulmonary edema. Assessment & Plan - Diagnosis (1) CHF exacerbation Qualifiers: Heart failure type: unspecified Qualified Code(s): I50.9 - Heart failure, unspecified Is this a current diagnosis for this admission?: Yes Plan: We will obtain transthoracic echocardiogram. Presentation may be consistent with heart failure especially with atrial fibrillation rapid ventricular response. Patient also reports some ascites and history of questionable heart murmur. Presently blood pressure is low normal Would recommend intravenous digoxin followed by oral digoxin for rate control Can also use intravenous pushes of metoprolol 2.5 mg IV every 2 hours for rate control as needed with parameters for blood pressure. If patient continues to be difficult to rate control then we can plan on transesophageal echocardiogram followed by cardioversion (2) Atrial fibrillation with rapid ventricular response Is this a current diagnosis for this admission?: Yes Plan: New onset finding of atrial fibrillation Agree with rate control measures. Rate control measures are somewhat limited by low normal blood pressures. Agree with use of intravenous digoxin with intravenous pushes of beta-tim, metoprolol at low doses. Can pursue ANDREI cardioversion later if necessary
--- NOTE | 2019-10-24 11:08 | RADIOLOGY REPORT (SQ) ---
EXAM DESCRIPTION: CT CHEST WITHOUT COMPLETED DATE/TIME: 10/24/2019 10:23 am REASON FOR STUDY: chf COMPARISON: 10/23/2018, 02/04/2011 TECHNIQUE: CT scan performed of the chest without intravenous contrast. Images reviewed with lung, soft tissue and bone windows. Reconstructed coronal and sagittal MPR images reviewed. All images st ored on PACS. All CT scanners at this facility use dose modulation, iterative reconstruction, and/or weight based d osing when appropriate to reduce radiation dose to as low as reasonably achievable (ALARA). [facility]: Dose Right [facility]: CareDose [facility]: Dose Right [facility]: Teradose 4D [facility]: Chef RADIATION DOSE: CT Rad equipment meets quality standard of care and radiation dose reduction techniq ues were employed. CTDIvol: 15.1 mGy. DLP: 529 mGy-cm. mGy. LIMITATIONS: Motion degraded exam. FINDINGS: LUNGS AND PLEURA: Interlobular septal thickening with bibasilar consolidation and scattere d mild ground-glass opacities throughout both lungs. Small bilateral pleural effusions. No pneumoth orax. HILAR AND MEDIASTINAL STRUCTURES: No identified masses or abnormal nodes. No obvious aneurysm. HEART AND VASCULAR STRUCTURES: Cardiomegaly with central vascular congestion. Scattered coronary ath erosclerosis. No significant pericardial effusion. UPPER ABDOMEN: No significant findings. Limited exam. THYROID AND OTHER SOFT TISSUES: No masses. No adenopathy. BONES: No acute bony abnormality. No suspicious osseous lesions. HARDWARE: None in the chest. OTHER: No other significant findings. IMPRESSION: Findings compatible with CHF with cardiomegaly, central vascular congestion, interstitia l edema and small bilateral effusions. TECHNICAL DOCUMENTATION: JOB ID: [id number] Quality ID # [id number]: Final reports with documentation of one or more dose reduction techniques (e.g., Au tomated exposure control, adjustment of the mA and/or kV according to patient size, use of iterative reconstruction technique) 2010 [employer]- All Rights Reserved Reading location - IP/workstation name: [email or web address]
[2019-10-24] MEDS: AZITHROMYCIN 250 MG TABLET PO SCH (11:10)
[2019-10-24] MEDS: DIGOXIN 0.125 MG TABLET PO SCH (11:10)
[2019-10-24] MEDS: CEFTRIAXONE 1 GM/D5W RTU 1 GM/50 ML RTUPB IV SCH (11:11)
[2019-10-24] MEDS: APIXABAN 5 MG TABLET PO SCH ×2 (12:06→17:16)
--- NOTE | 2019-10-24 13:55 | EKG REPORT ---
SEVERITY:- ABNORMAL ECG - ATRIAL FIBRILLATION, V-RATE 115-195 PROBABLE LVH WITH SECONDARY REPOL ABNRM ST DEPRESSION, CONSIDER ISCHEMIA, ANT-LAT LDS BORDERLINE PROLONGED QT INTERVAL : Confirmed by: Ijeoma Villegas MD 24-Oct-2019 13:54:17
[2019-10-24] MEDS ORDERED: GUAIFENESIN SYRP 200 MG/10 ML UDC PO PRN (22:21)
[2019-10-24] MEDS: INSULIN GLARGINE,HUM.REC.ANLOG 1,000 UNIT/10 ML VIAL SUBCUT SCH (22:23)
[2019-10-25] MEDS: INSULIN LISPRO 100 UNIT/ML 3 ML VIAL SUBCUT SCH ×7 (08:01→21:12)
[2019-10-25 08:19] LABS: APPEARANCE,URINE CLEAR; BILIRUBIN,URINE NEGATIVE (NEGATIVE); COLOR,URINE YELLOW; GLUCOSE, URINE NEGATIVE (NEGATIVE); KETONES,URINE NEGATIVE (NEGATIVE); LEUKOCYTE ESTERASE,URINE TRACE (NEGATIVE); NITRITE,URINE NEGATIVE (NEGATIVE); PROTEIN,URINE 30 mg/dL (NEGATIVE); UROBILINOGEN,URINE NEGATIVE mg/dL (<2.0)
[2019-10-25] MEDS: ACETAMINOPHEN 325 MG TABLET PO PRN (09:14)
[2019-10-25] MEDS: CEFTRIAXONE 1 GM/D5W RTU 1 GM/50 ML RTUPB IV SCH (09:14)
[2019-10-25] MEDS: APIXABAN 5 MG TABLET PO SCH ×2 (09:14→17:12)
[2019-10-25] MEDS: DIGOXIN 0.125 MG TABLET PO SCH (09:14)
[2019-10-25] MEDS: FUROSEMIDE INJ/PF 40 MG/4 ML SDV IV SCH ×2 (09:14→17:12)
[2019-10-25] MEDS: AZITHROMYCIN 250 MG TABLET PO SCH (09:14)
[2019-10-25] MEDS: METOPROLOL TARTRATE PF/INJ 5 MG/5 ML SDV IV PRN ×2 (10:41→18:45)
--- NOTE | 2019-10-25 11:07 | PDOC PROGRESS REPORT ---
Subjective Progress Note for:: 10/25/19 Subjective:: Patient complains of having some coughing fits yesterday. Still unable to lay flat. Denies any shortness of breath or chest pain at this time. Reason For Visit: CHF, AFIB RVR, HYPOTENSION Physical Exam Vital Signs: Temp Pulse Resp BP Pulse Ox 97.8 F 102 H 16 125/81 94 10/25/19 07:17 10/25/19 07:17 10/25/19 07:17 10/25/19 07:17 10/25/19 07:17 Intake & Output 10/24/19 10/25/19 10/26/19 06:59 06:59 06:59 Intake Total 1050 1330 Balance 1050 1330 Weight 80.286 kg 80.6 kg General appearance: PRESENT: no acute distress, cooperative Neck exam: ABSENT: JVD Respiratory exam: PRESENT: crackles, unlabored. ABSENT: tachypnea, wheezes Cardiovascular exam: PRESENT: irregular rhythm, +S1, +S2, tachycardia GI/Abdominal exam: PRESENT: soft. ABSENT: rebound, rigid, tenderness Neurological exam: PRESENT: alert, awake, oriented to person, oriented to place, oriented to time Psychiatric exam: ABSENT: agitated, anxious Results Laboratory Results: 10/24/19 05:15 10/24/19 05:15 10/25/19 07:45 Urine Color YELLOW Urine Appearance CLEAR Urine pH 6.0 Ur Specific [place] 1.010 Urine Protein 30 H Urine Glucose (UA) NEGATIVE Urine Ketones NEGATIVE Urine Blood SMALL H Urine Nitrite NEGATIVE Ur Leukocyte Esterase TRACE H Urine WBC (Auto) 21 Urine RBC (Auto) 4 10/23/19 18:55 Sputum Gram Stain - Final 10/23/19 18:55 Sputum Sputum Culture - Final 10/23/19 10/23/19 10/23/19 13:05 13:05 13:05 Creatine Kinase 75 CK-MB (CK-2) 1.31 Troponin I < 0.012 NT-Pro-B Natriuret Pep 2370 H Impressions: Chest X-Ray 10/23/19 13:27 IMPRESSION: Bilateral perihilar opacities. Correlate with clinical findings for multifocal pneumonia and pulmonary edema. Chest CT 10/24/19 00:00 IMPRESSION: Findings compatible with CHF with cardiomegaly, central vascular congestion, interstitial edema and small bilateral effusions. Assessment and Plan - Diagnosis (1) Atrial fibrillation with rapid ventricular response Is this a current diagnosis for this admission?: Yes Plan: New diagnosis for patient. Undetermined if paroxysmal or persistent. Continue with digoxin 0.125 mg daily and Eliquis. We will start on Toprol-XL 25 mg. (2) Acute congestive heart failure Qualifiers: Heart failure type: unspecified Qualified Code(s): I50.9 - Heart failure, unspecified Is this a current diagnosis for this admission?: Yes Plan: New onset for patient EF undetermined. Blood pressures improved and I will start him on Lasix 40 mg IV twice a day monitor strict I's and O's. Awaiting final read of echocardiogram but preliminary read suggests ejection fraction of around 43%. (3) Community acquired pneumonia Qualifiers: Laterality: unspecified laterality Qualified Code(s): J18.9 - Pneumonia, unspecified organism Is this a current diagnosis for this admission?: Yes Plan: Patient is on ceftriaxone and azithromycin day 3. Chest CT suggesting more of CHF than pneumonia. However I am uncertain why patient's white count jumped suddenly yesterday. I will recheck CBC today. (4) Asthma, chronic Qualifiers: Asthma severity: mild Asthma persistence: intermittent Asthma complication type: uncomplicated Qualified Code(s): J45.20 - Mild intermittent asthma, uncomplicated Is this a current diagnosis for this admission?: No Plan: Stable no evidence of exacerbation at this time. Nebulizers as needed. (5) UTI (urinary tract infection) Qualifiers: Urinary tract infection type: site unspecified Hematuria presence: with hematuria Qualified Code(s): N39.0 - Urinary tract infection, site not specified; R31.9 - Hematuria, unspecified Is this a current diagnosis for this admission?: Yes Plan: Ceftriaxone day 3 of 5 (6) Diabetes mellitus type 1 Is this a current diagnosis for this admission?: No Plan: Lantus 22 units at nighttime and Humalog with meals sliding scale (7) Acromegaly Is this a current diagnosis for this admission?: No - Time Time Spent with patient: Less than 15 minutes
[2019-10-25] MEDS ORDERED: METOPROLOL SUCCINATE 25 MG TAB.SR.24H PO ONE (11:30)
[2019-10-25 11:32] LABS: ABSOLUTE BASOPHILS # (AUTO) 0.1 10^3/uL (0.0-0.2); ABSOLUTE EOSINOPHILS # (AUTO) 0.1 10^3/uL (0.0-0.6); ABSOLUTE LYMPHOCYTES (AUTO) 1.2 10^3/uL (0.5-4.7); ABSOLUTE MONOCYTES (AUTO) 0.5 10^3/uL (0.1-1.4); ABSOLUTE NEUT (AUTO) 5.9 10^3/uL (1.7-8.2); BASOPHILS % (AUTO) 0.9 % (0-2); EOSINOPHILS % (AUTO) 1.6 % (0-6); HEMOGLOBIN 12.2 g/dL (12.0-15.5); MEAN CORPUSCULAR HEMOGLOBIN 30.6 pg (27.0-33.4); MEAN CORPUSCULAR VOLUME 90 fl (80-97); MONOCYTES % (AUTO) 6.1 % (3-13); PLATELET COUNT 278 10^3/uL (150-450); RED BLOOD COUNT 3.99 10^6/uL (3.72-5.28); SEGMENTED NEUTROPHILS % (AUTO) 76.4 % (42-78); TOTAL CELLS COUNTED % (AUTO) 100 %; WHITE BLOOD COUNT 7.7 10^3/uL (4.0-10.5)
[2019-10-25 11:51] LABS: ANION GAP 9 (5-19); BLOOD UREA NITROGEN 7 mg/dL (7-20); CALCIUM 8.7 mg/dL (8.4-10.2); CARBON DIOXIDE 26 mmol/L (22-30); CHLORIDE 102 mmol/L (98-107); GLUCOSE 279 mg/dL (75-110); POTASSIUM 4.2 mmol/L (3.6-5.0)
[2019-10-25] MEDS: INSULIN GLARGINE,HUM.REC.ANLOG 1,000 UNIT/10 ML VIAL SUBCUT SCH (21:12)
[2019-10-26] MEDS: METOPROLOL TARTRATE PF/INJ 5 MG/5 ML SDV IV PRN (00:42)
[2019-10-26] MEDS ORDERED: BENZOCAINE/MENTHOL SORE THROAT LOZENGE BUCCAL PRN (05:53)
[2019-10-26 08:24] LABS: ANION GAP 7 (5-19); BLOOD UREA NITROGEN 9 mg/dL (7-20); CALCIUM 8.9 mg/dL (8.4-10.2); CARBON DIOXIDE 29 mmol/L (22-30); CHLORIDE 102 mmol/L (98-107); GLUCOSE 319 mg/dL (75-110); POTASSIUM 4.7 mmol/L (3.6-5.0)
[2019-10-26] MEDS: ACETAMINOPHEN 325 MG TABLET PO PRN ×3 (08:25→21:23)
[2019-10-26] MEDS: INSULIN LISPRO 100 UNIT/ML 3 ML VIAL SUBCUT SCH ×4 (08:25→21:23)
[2019-10-26] MEDS ORDERED: INSULIN NPH (ISOPHANE), HUMAN 100 UNIT/ML 3 ML SUBCUT ONE (08:30)
[2019-10-26] MEDS: DIGOXIN 0.125 MG TABLET PO SCH (09:55)
[2019-10-26] MEDS: APIXABAN 5 MG TABLET PO SCH ×2 (09:55→17:35)
[2019-10-26] MEDS: FUROSEMIDE INJ/PF 40 MG/4 ML SDV IV SCH ×2 (09:56→17:36)
[2019-10-26] MEDS: CEFTRIAXONE 1 GM/D5W RTU 1 GM/50 ML RTUPB IV SCH (09:56)
[2019-10-26] MEDS ORDERED: METOPROLOL SUCCINATE 25 MG TAB.SR.24H PO SCH ×2 (10:00)
--- NOTE | 2019-10-26 10:19 | PDOC PROGRESS REPORT ---
Subjective Progress Note for:: 10/26/19 Subjective:: Complaints of abdominal pain this morning after receiving Lasix. Otherwise denies any fever or chills. Denies any nausea vomiting. Denies any diarrhea. Did have some coughing fits yesterday night as well. Reason For Visit: CHF, AFIB RVR, HYPOTENSION Physical Exam Vital Signs: Temp Pulse Resp BP Pulse Ox 97.6 F 98 16 124/87 H 94 10/26/19 07:11 10/26/19 07:11 10/26/19 07:11 10/26/19 07:11 10/26/19 07:11 Intake & Output 10/25/19 10/26/19 10/27/19 06:59 06:59 06:59 Intake Total 1330 1330 Output Total 6000 Balance 1330 -4670 Weight 80.6 kg 83.7 kg General appearance: PRESENT: no acute distress, cooperative Neck exam: ABSENT: JVD Respiratory exam: PRESENT: crackles, symmetrical, unlabored. ABSENT: tachypnea, wheezes Cardiovascular exam: PRESENT: irregular rhythm, +S1, +S2, tachycardia GI/Abdominal exam: PRESENT: normal bowel sounds, soft. ABSENT: rebound, rigid, tenderness Extremities exam: ABSENT: calf tenderness, pedal edema Neurological exam: PRESENT: alert, awake, oriented to person, oriented to place, oriented to time Results Laboratory Results: 10/25/19 11:22 10/26/19 07:53 10/25/19 10/25/19 10/26/19 11:22 11:22 07:53 WBC 7.7 RBC 3.99 Hgb 12.2 Hct 36.0 MCV 90 MCH 30.6 MCHC 34.0 RDW 16.0 H Plt Count 278 Seg Neutrophils % 76.4 Sodium 137.1 137.7 Potassium 4.2 4.7 Chloride 102 102 Carbon Dioxide 26 29 Anion Gap 9 7 BUN 7 9 Creatinine 0.44 L 0.44 L Est GFR ( Amer) > 60 > 60 Glucose 279 H 319 H Calcium 8.7 8.9 Magnesium 1.7 1.8 10/23/19 10/23/19 10/23/19 13:05 13:05 13:05 Creatine Kinase 75 CK-MB (CK-2) 1.31 Troponin I < 0.012 NT-Pro-B Natriuret Pep 2370 H Impressions: Chest X-Ray 10/23/19 13:27 IMPRESSION: Bilateral perihilar opacities. Correlate with clinical findings for multifocal pneumonia and pulmonary edema. Chest CT 10/24/19 00:00 IMPRESSION: Findings compatible with CHF with cardiomegaly, central vascular congestion, interstitial edema and small bilateral effusions. Assessment and Plan - Diagnosis (1) Atrial fibrillation with rapid ventricular response Is this a current diagnosis for this admission?: Yes Plan: New diagnosis for patient. Undetermined if paroxysmal or persistent. Still in A. fib with RVR. Continue with digoxin 0.125 mg daily and Eliquis. I will increase Toprol-XL to 50 mg bid (2) Acute congestive heart failure Qualifiers: Heart failure type: unspecified Qualified Code(s): I50.9 - Heart failure, unspecified Is this a current diagnosis for this admission?: Yes Plan: New onset for patient EF undetermined. Awaiting final read of echocardiogram but preliminary read suggests ejection fraction of around 43%. Diuresed very well yesterday on Lasix IV 40 mg twice daily. Will maintain on current regimen monitor I's and O's strictly. Cardiology following. (3) Community acquired pneumonia Qualifiers: Laterality: unspecified laterality Qualified Code(s): J18.9 - Pneumonia, unspecified organism Is this a current diagnosis for this admission?: Yes Plan: Patient was on ceftriaxone and azithromycin for 3 days. However I have reviewed chest CT imaging which shows that the infiltrate seen on chest x-ray are more like pulmonary vascular congestion with pulmonary edema from CHF and no actual infiltrate/consolidation noted on chest CT. I think pneumonia is very unlikely and I have stopped azithromycin. We will maintain ceftriaxone for 1 more day for treatment of UTI. (4) Asthma, chronic Qualifiers: Asthma severity: mild Asthma persistence: intermittent Asthma complication type: uncomplicated Qualified Code(s): J45.20 - Mild intermittent asthma, uncomplicated Is this a current diagnosis for this admission?: No Plan: Stable no evidence of exacerbation at this time. Nebulizers as needed. (5) UTI (urinary tract infection) Qualifiers: Urinary tract infection type: site unspecified Hematuria presence: with hematuria Qualified Code(s): N39.0 - Urinary tract infection, site not specified; R31.9 - Hematuria, unspecified Is this a current diagnosis for this admission?: Yes Plan: Ceftriaxone day 4 of 5 (6) Diabetes mellitus type 1 Is this a current diagnosis for this admission?: No Plan: Hypoglycemic yesterday and also Lantus was not given thus hyperglycemic this morning. Will discontinue pre-meal Humalog and just maintain patient on Lantus 22 units at nighttime and sliding scale. Will bridge with NPH 12 units. (7) Acromegaly Is this a current diagnosis for this admission?: No - Time Time Spent with patient: 15-24 minutes
[2019-10-26] MEDS ORDERED: MAGNESIUM OXIDE 400 MG TABLET PO ONE (10:45)
[2019-10-26] MEDS: METOPROLOL SUCCINATE 25 MG TAB.SR.24H PO SCH (17:36)
[2019-10-26] MEDS: INSULIN GLARGINE,HUM.REC.ANLOG 1,000 UNIT/10 ML VIAL SUBCUT SCH (21:24)
[2019-10-27] MEDS: DEXTROSE 50%-WATER 25 GM/50 ML DISP.SYRIN IV PRN (03:31)
[2019-10-27 06:14] LABS: ANION GAP 11 (5-19); BLOOD UREA NITROGEN 13 mg/dL (7-20); CALCIUM 9.1 mg/dL (8.4-10.2); CARBON DIOXIDE 29 mmol/L (22-30); CHLORIDE 101 mmol/L (98-107); GLUCOSE 84 mg/dL (75-110)
[2019-10-27 06:42] LABS: POTASSIUM 3.7 mmol/L (3.6-5.0)
[2019-10-27] MEDS: INSULIN LISPRO 100 UNIT/ML 3 ML VIAL SUBCUT SCH ×4 (07:07→21:26)
[2019-10-27] MEDS: ACETAMINOPHEN 325 MG TABLET PO PRN (09:17)
[2019-10-27] MEDS: CEFTRIAXONE 1 GM/D5W RTU 1 GM/50 ML RTUPB IV SCH (09:17)
[2019-10-27] MEDS: METOPROLOL SUCCINATE 25 MG TAB.SR.24H PO SCH ×2 (09:18→17:04)
[2019-10-27] MEDS: DIGOXIN 0.125 MG TABLET PO SCH (09:18)
[2019-10-27] MEDS: APIXABAN 5 MG TABLET PO SCH ×2 (09:18→17:04)
[2019-10-27] MEDS ORDERED: FUROSEMIDE INJ/PF 40 MG/4 ML SDV IV SCH (10:00)
[2019-10-27 11:41] LABS: FREE T4 (FREE THYROXINE) 1.49 ng/dL (0.78-2.19)
--- NOTE | 2019-10-27 11:43 | PDOC PROGRESS REPORT ---
Subjective Progress Note for:: 10/27/19 Subjective:: Patient states that her breathing is well. Denies any chest pain or shortness of breath. Has not done much ambulation just between the bathroom and her bed. Have encouraged her to do ambulation outside her room in the hallways today. She denies any instability on her feet. Reason For Visit: CHF, AFIB RVR, HYPOTENSION Physical Exam Vital Signs: Temp Pulse Resp BP Pulse Ox 97.3 F 90 19 100/67 96 10/27/19 07:44 10/27/19 07:44 10/27/19 07:44 10/27/19 07:44 10/27/19 07:44 Intake & Output 10/26/19 10/27/19 10/28/19 06:59 06:59 06:59 Intake Total 1330 1212 50 Output Total 6000 4700 Balance -5259 -5367 50 Weight 83.7 kg 78.8 kg General appearance: PRESENT: no acute distress, cooperative Neck exam: ABSENT: JVD Respiratory exam: PRESENT: crackles, unlabored. ABSENT: tachypnea, wheezes Cardiovascular exam: PRESENT: irregular rhythm, +S1, +S2. ABSENT: tachycardia GI/Abdominal exam: PRESENT: normal bowel sounds, soft. ABSENT: rebound, rigid, tenderness Neurological exam: PRESENT: alert, awake, oriented to person, oriented to place, oriented to time, oriented to situation Results Laboratory Results: 10/25/19 11:22 10/27/19 04:31 10/27/19 04:31 Sodium 140.5 Potassium 3.7 D Chloride 101 Carbon Dioxide 29 Anion Gap 11 BUN 13 Creatinine 0.41 L Est GFR ( Amer) > 60 Glucose 84 Calcium 9.1 Phosphorus 4.0 Magnesium 1.8 10/23/19 10/23/19 10/23/19 13:05 13:05 13:05 Creatine Kinase 75 CK-MB (CK-2) 1.31 Troponin I < 0.012 NT-Pro-B Natriuret Pep 2370 H Impressions: Chest X-Ray 10/23/19 13:27 IMPRESSION: Bilateral perihilar opacities. Correlate with clinical findings for multifocal pneumonia and pulmonary edema. Chest CT 10/24/19 00:00 IMPRESSION: Findings compatible with CHF with cardiomegaly, central vascular congestion, interstitial edema and small bilateral effusions. Assessment and Plan - Diagnosis (1) Atrial fibrillation with rapid ventricular response Is this a current diagnosis for this admission?: Yes Plan: New diagnosis for patient. Undetermined if paroxysmal or persistent. Digoxin 0.125 mg daily, Toprol-XL 50 mg twice daily. Eliquis F/u TFTs. (2) Acute congestive heart failure Qualifiers: Heart failure type: unspecified Qualified Code(s): I50.9 - Heart failure, unspecified Is this a current diagnosis for this admission?: Yes Plan: New onset for patient EF undetermined. Awaiting final read of echocardiogram but preliminary read suggests ejection fraction of around 43%. Diuresing well. Will decrease Lasix IV to 40 mg daily. Should be able to transition to p.o. tomorrow. Cardiology following. (3) Asthma, chronic Qualifiers: Asthma severity: mild Asthma persistence: intermittent Asthma complication type: uncomplicated Qualified Code(s): J45.20 - Mild intermittent asthma, uncomplicated Is this a current diagnosis for this admission?: No Plan: Stable no evidence of exacerbation at this time. Nebulizers as needed. (4) Diabetes mellitus type 1 Is this a current diagnosis for this admission?: Yes Plan: Patient hypoglycemic again this morning with blood glucose of 20s. I have confirmed patient's dose and patient states that she actually takes Tresiba 22 units in the morning not at nighttime and this may be the reason why patient is having these episodes of a.m. hypoglycemia. I have adjusted her Lantus to be given at 22 units during the day starting tomorrow, and as for today, will cover with sliding scale insulin and if needed NPH. (5) UTI (urinary tract infection) Qualifiers: Urinary tract infection type: site unspecified Hematuria presence: with hematuria Qualified Code(s): N39.0 - Urinary tract infection, site not specifi ed; R31.9 - Hematuria, unspecified Is this a current diagnosis for this admission?: Yes Plan: Completed 5 days of ceftriaxone. (6) Acromegaly Is this a current diagnosis for this admission?: No
[2019-10-27 11:55] LABS: THYROID STIMULATING HORMONE 2.4 uIU/mL (0.47-4.68)
--- NOTE | 2019-10-27 13:19 | XCELERA REPORT ---
[address] [address] Transthoracic Echocardiogram Report Name: URSZULA VANEGAS Age: 49 yrs Gender: Female : 1970 Patient Status: Inpatient Patient Location: [place] [address]^A Study Date: 10/24/2019 03:28 PM History: Atrial fibrillation Height: 73 in Weight: 177 lb BSA: 2.0 m2 Procedure: A complete two-dimensional transthoracic echocardiogram was performed (2D, M-mode, spectral and color flow Doppler). The study was technically difficult with many images being suboptimal in quality. Reason For Study: af Previous Evaluation: No previous studies were available. History: Atrial fibrillation. Ordering Physician: CAR SANZ Performed By: Leah Kat Interpretation Summary Left ventricular systolic function is mildly reduced. The Ejection Fraction estimate is 40-45% The right ventricular systolic function is normal. There is a trace amount of mitral regurgitation There is no aortic valve stenosis There is a trace or physiologic amount of tricuspid regurgitation Minimal pericardial effusion. MMode/2D Measurements & Calculations RVDd: 2.7 cm LVIDd: 5.5 cm FS: 21.3 % Ao root diam: 3.2 cm IVSd: 1.0 cm LVIDs: 4.4 cm EDV(Teich): 149.8 ml Ao root area: 7.9 cm2 LVPWd: 1.1 cm ESV(Teich): 85.8 ml EF(Teich): 42.7 % Doppler Measurements & Calculations MV E max nivia: MV dec slope: Ao V2 max: PA V2 max: 85.0 cm/sec 431.2 cm/sec2 73.8 cm/sec 76.4 cm/sec MV dec time: 0.20 secAo max PG: PA max P.2 mmHg 2.3 mmHg PI end-d nivia: TR max nivia: 127.7 cm/sec 242.7 cm/sec TR max P.6 mmHg Left Ventricle The left ventricle is borderline dilated. There is mild concentric left ventricular hypertrophy. Left ventricular systolic function is mildly reduced. The Ejection Fraction estimate is 40-45%. Regional wall motion abnormalities cannot be excluded due to limited visualization. There is borderline global hypokinesis of the left ventricle. Right Ventricle The right ventricle is not well visualized secondary to technical limitations. The right ventricular systolic function is normal. Atria The right atrium is mildly dilated. The left atrium is moderately dilated. Mitral Valve The mitral valve is grossly normal. There is a trace amount of mitral regurgitation. Aortic Valve The aortic valve opens well. There is no aortic valve stenosis. No aortic regurgitation is present. Tricuspid Valve The tricuspid valve is not well visualized, but is grossly normal. There is a trace or physiologic amount of tricuspid regurgitation. Tricuspid regurgitation jet envelope not well defined to measure RV systolic pressure accurately. Pulmonic Valve The pulmonic valve is normal in structure and function. There is a mild amount of pulmonic regurgitation. Great Vessels The aortic root is normal size. The inferior vena cava appeared normal and decreased > 50% with respiration (RAP 5-10 mmHg). Effusions Minimal pericardial effusion. : CAR SANZ Anil
--- NOTE | 2019-10-27 16:05 | PDOC PROGRESS REPORT ---
Subjective Progress Note for:: 10/27/19 Subjective:: Feels mildly better. Still endorses dyspnea. Since admission she has diuresed well. Ventricular rate on telemetry is approximately 102 bpm. Rhythm continues to be atrial fibrillation. Reason For Visit: CHF, AFIB RVR, HYPOTENSION Physical Exam Vital Signs: Temp Pulse Resp BP Pulse Ox 97.6 F 107 H 18 101/61 99 10/27/19 11:33 10/27/19 14:00 10/27/19 11:33 10/27/19 11:33 10/27/19 11:33 Intake & Output 10/26/19 10/27/19 10/28/19 06:59 06:59 06:59 Intake Total 1330 1212 290 Output Total 6000 4700 900 Balance -4670 -3488 -610 Weight 83.7 kg 78.8 kg General appearance: PRESENT: no acute distress, cooperative, well-developed, other - Abnormal facies. Prominent nodes. Acromegaly. Head exam: PRESENT: atraumatic, normocephalic Eye exam: PRESENT: EOMI Ear exam: PRESENT: normal external ear exam Mouth exam: PRESENT: moist Teeth exam: PRESENT: poor dentation - Edentulous. Neck exam: PRESENT: JVD Cardiovascular exam: PRESENT: irregular rhythm, +S1, +S2 Pulses: PRESENT: normal radial pulses GI/Abdominal exam: PRESENT: soft Rectal exam: PRESENT: deferred Musculoskeletal exam: PRESENT: normal inspection Neurological exam: PRESENT: alert, awake, oriented to person, oriented to place, oriented to time, oriented to situation Psychiatric exam: PRESENT: appropriate affect Skin exam: PRESENT: dry, intact, normal color Results Laboratory Results: 10/25/19 11:22 10/27/19 04:31 10/27/19 10/27/19 04:31 04:31 Sodium 140.5 Potassium 3.7 D Chloride 101 Carbon Dioxide 29 Anion Gap 11 BUN 13 Creatinine 0.41 L Est GFR ( Amer) > 60 Glucose 84 Calcium 9.1 Phosphorus 4.0 Magnesium 1.8 TSH 2.40 Free T4 1.49 10/25/19 07:45 Clean Catch Midstream Urine Culture - Final Mixed Urogenital [place] 10/23/19 10/23/19 10/23/19 13:05 13:05 13:05 Creatine Kinase 75 CK-MB (CK-2) 1.31 Troponin I < 0.012 NT-Pro-B Natriuret Pep 2370 H EKG Comments: Telemetry noted in atrial fibrillation with mildly increased ventricular response. Low 100s Echocardiogram shows mildly reduced ejection fraction. Ejection fraction is difficult to estimate. Best estimate is 40 to 45%. Left atrium is moderately dilated. No significant valve lesion is noted. Pulmonary pressure is difficult to ascertain on the study. Impressions: Chest X-Ray 10/23/19 13:27 IMPRESSION: Bilateral perihilar opacities. Correlate with clinical findings for multifocal pneumonia and pulmonary edema. Chest CT 10/24/19 00:00 IMPRESSION: Findings compatible with CHF with cardiomegaly, central vascular congestion, interstitial edema and small bilateral effusions. Assessment & Plan - Diagnosis (1) CHF exacerbation Qualifiers: Heart failure type: unspecified Qualified Code(s): I50.9 - Heart failure, unspecified Is this a current diagnosis for this admission?: Yes Plan: Acute decompensated congestive heart failure. Mildly reduced left ventricular ejection fraction estimated at 40 to 45%. Estimating ejection fraction on the study was difficult. Patient appears to be responding to diuretic therapy. (2) Atrial fibrillation with rapid ventricular response Is this a current diagnosis for this admission?: Yes Plan: Presently the rate is better controlled. Patient does not endorse prior history of atrial fibrillation although echocardiogram shows at least moderate left atrial dilatation. It is possible that the patient has had longstanding atrial fibrillation and possibly was unaware of this. Nevertheless given presentation with heart failure and with symptoms including palpitations with attempted transesophageal echocardiogram followed by cardioversion to restore sinus rhythm. Patient has already been started on systemic anticoagulation. We will keep her n.p.o. for possible ANDREI cardioversion tomorrow.
[2019-10-27] MEDS ORDERED: INSULIN GLARGINE,HUM.REC.ANLOG 1,000 UNIT/10 ML VIAL SUBCUT SCH (22:00)
[2019-10-28 05:41] LABS: ANION GAP 8 (5-19); BLOOD UREA NITROGEN 15 mg/dL (7-20); CALCIUM 8.4 mg/dL (8.4-10.2); CARBON DIOXIDE 25 mmol/L (22-30); CHLORIDE 103 mmol/L (98-107); GLUCOSE 187 mg/dL (75-110)
[2019-10-28] MEDS ORDERED: PROPOFOL INJ 200 MG/20 ML VIAL IV ONE (07:32)
[2019-10-28] MEDS ORDERED: MIDAZOLAM 2 MG/2 ML INJ ONE (07:32)
[2019-10-28] MEDS: INSULIN LISPRO 100 UNIT/ML 3 ML VIAL SUBCUT SCH ×4 (08:01→21:26)
--- NOTE | 2019-10-28 08:37 | RADIOLOGY REPORT (SQ) ---
EXAM DESCRIPTION: CHEST SINGLE VIEW COMPLETED DATE/TIME: 10/28/2019 8:29 am REASON FOR STUDY: preop COMPARISON: 10/23/2019. EXAM PARAMETERS: NUMBER OF VIEWS: One view. TECHNIQUE: Single frontal radiographic view of the chest acquired. RADIATION DOSE: NA LIMITATIONS: None. FINDINGS: LUNGS AND PLEURA: Improved aeration. No opacities, masses or pneumothorax. No pleural eff usion. MEDIASTINUM AND HILAR STRUCTURES: No masses. Contour normal. HEART AND VASCULAR STRUCTURES: Heart upper limits of normal in size. Normal vasculature. BONES: No acute findings. HARDWARE: None in the chest. OTHER: No other significant finding. IMPRESSION: IMPROVED AERATION. NO ACUTE RADIOGRAPHIC FINDING IN THE CHEST. TECHNICAL DOCUMENTATION: JOB ID: [id number] 2010 [employer]- All Rights Reserved Reading location - IP/workstation name: [email or web address]
[2019-10-28] MEDS ORDERED: INSULIN GLARGINE,HUM.REC.ANLOG 1,000 UNIT/10 ML VIAL SUBCUT SCH ×2 (10:00)
[2019-10-28] MEDS: FUROSEMIDE 40 MG TABLET PO SCH (11:25)
[2019-10-28] MEDS: METOPROLOL SUCCINATE 25 MG TAB.SR.24H PO SCH ×2 (11:25→17:21)
[2019-10-28] MEDS: APIXABAN 5 MG TABLET PO SCH ×2 (11:26→17:21)
[2019-10-28] MEDS: DIGOXIN 0.125 MG TABLET PO SCH (11:26)
--- NOTE | 2019-10-28 12:38 | PDOC PROGRESS REPORT ---
Subjective Progress Note for:: 10/28/19 Subjective:: The patient just returned from her transesophageal echocardiogram. See discussion below. No acute complaints this morning. She is still in atrial fibrillation with rate not yet adequately controlled. Reason For Visit: CHF, AFIB RVR, HYPOTENSION Physical Exam Vital Signs: Temp Pulse Resp BP Pulse Ox 97.7 F 115 H 20 103/62 95 10/28/19 11:28 10/28/19 11:28 10/28/19 11:28 10/28/19 11:28 10/28/19 11:28 Intake & Output 10/27/19 10/28/19 10/29/19 06:59 06:59 06:59 Intake Total 1212 1010 550 Output Total 4700 1500 Balance -3488 -490 550 Weight 78.8 kg 81.7 kg General appearance: PRESENT: no acute distress, well-developed, other - Marked features of acromegaly Head exam: PRESENT: atraumatic Eye exam: PRESENT: conjunctiva pink. ABSENT: scleral icterus Ear exam: PRESENT: normal external ear exam. ABSENT: bleeding, drainage Mouth exam: PRESENT: moist, tongue midline Respiratory exam: PRESENT: clear to auscultation patrice, symmetrical, unlabored. ABSENT: prolonged expiratory phas, rhonchi, tachypnea, wheezes Cardiovascular exam: PRESENT: irregular rhythm, tachycardia. ABSENT: diastolic murmur, systolic murmur GI/Abdominal exam: PRESENT: normal bowel sounds, soft. ABSENT: distended, guarding, mass, tenderness Rectal exam: PRESENT: deferred Musculoskeletal exam: PRESENT: normal inspection. ABSENT: deformity Neurological exam: PRESENT: alert, awake, oriented to person, oriented to place, oriented to time, oriented to situation, CN II-XII grossly intact Psychiatric exam: PRESENT: flat affect. ABSENT: agitated, anxious, unusual affect Focused psych exam: ABSENT: delusional, paranoid, restlessness Skin exam: PRESENT: dry, normal color, warm. ABSENT: cyanosis, rash Results Laboratory Results: 10/25/19 11:22 10/28/19 04:55 10/28/19 04:55 Sodium 136.0 L Potassium 4.0 Chloride 103 Carbon Dioxide 25 Anion Gap 8 BUN 15 Creatinine 0.39 L Est GFR ( Amer) > 60 Glucose 187 H Calcium 8.4 Magnesium 1.8 10/25/19 07:45 Clean Catch Midstream Urine Culture - Final Mixed Urogenital Daniel 10/23/19 10/23/19 10/23/19 13:05 13:05 13:05 Creatine Kinase 75 CK-MB (CK-2) 1.31 Troponin I < 0.012 NT-Pro-B Natriuret Pep 2370 H Impressions: Chest CT 10/24/19 00:00 IMPRESSION: Findings compatible with CHF with cardiomegaly, central vascular congestion, interstitial edema and small bilateral effusions. Chest X-Ray 10/28/19 08:10 IMPRESSION: IMPROVED AERATION. NO ACUTE RADIOGRAPHIC FINDING IN THE CHEST. Assessment and Plan - Diagnosis (4) Asthma, chronic Qualifiers: Asthma severity: mild Asthma persistence: intermittent Asthma complication type: uncomplicated Qualified Code(s): J45.20 - Mild intermittent asthma, uncomplicated Is this a current diagnosis for this admission?: No (5) Diabetes mellitus type 1 Is this a current diagnosis for this admission?: Yes (6) Acromegaly Is this a current diagnosis for this admission?: Yes (7) UTI (urinary tract infection) Qualifiers: Urinary tract infection type: site unspecified Hematuria presence: with hematuria Qualified Code(s): N39.0 - Urinary tract infection, site not specified; R31.9 - Hematuria, unspecified Is this a current diagnosis for this admission?: No Plan: Ruled out by urine culture. Normal urogenital daniel present but no pathologic organism. - Plan Summary Summary: 10/28/2019 The patient had her transesophageal echocardiogram today. There is an atrial appendage thrombus. She also had some atrial dilatation. Her atrial fibrillation has likely been chronic and longstanding. She just has not appreciated it. She is on metoprolol and digoxin. I increased the digoxin as this will help slow her rate but not decrease her blood pressure. She also will be on anticoagulation chronically. Diabetes mellitus type 1-the patient was having hypoglycemic episodes. Dr. Huitron made some changes in her regimen including changing her long-acting insulin to the mornings. Her Accu-Cheks are still higher than desired so I will increase her Lantus from 10 units to 14 units daily. She will continue sliding scale coverage. Asthma is stable. No changes in her current regimen Acromegaly-she has acromegaly. There are no acute interventions at this time. Continue to monitor. Urinary tract infection-urinary tract infection was suspected. Urine culture grew mixed urogenital daniel with no single pathologic organism. Currently not on antibiotic therapy. - Time Time Spent with patient: 15-24 minutes Medications reviewed and adjusted accordingly: Yes Anticipated discharge: Home Within: within 48 hours
--- NOTE | 2019-10-28 12:48 | XCELERA REPORT ---
Study ID: [id number] [id number] Transesophageal Echocardiogram Report Name: URSZULA VANEGAS Age: 49 yrs Gender: Female : 1970 Patient Status: Inpatient Patient Location: [address] [place] [address] Study Date: 10/28/2019 09:28 AM History: Atrial fibrillation CHF Reason For Study: atrial fibrillation Ordering Physician: MOUNIKA MARTINEZ Performed By: Leah Kat Interpretation Summary Left ventricular systolic function is mildly reduced. LVEF ~ 40-45% The right ventricle is normal in size and function. There is a thrombus seen in the left atrial appendage. No hemodynamically significant valvular aortic stenosis. There is mild mitral regurgitation. There is trace tricuspid regurgitation. Small pericardial effusion. Cardioversion was not pursued due to presense of NIELS thrmobus. Procedure A complete two-dimensional transesophageal echocardiogram was performed (2D, spectral and color flow Doppler). Informed consent for Transesophageal Echocardiogram, and use of a contrast agent as needed, was obtained prior to the procedure. The patient was brought to the OR in a fasting state. An intravenous line was placed. A topical anesthetic agent was used for oropharangeal anesthesia. A bite block was inserted. IV conscious sedation was administered using per anesthesia. The patient's vital signs, including blood pressure, heart rate, pulse oximetry and cardiac rhythm were monitored thoughout the procedure. The transesophageal probe was passed without difficulty. The usual views were obtained; basal, mid-esophageal, transgastric and aortic views. The patient tolerated the procedure well without evidence of orophangeal or esophageal trauma. Subsequent to all the images being obtained the probe was removed with out trauma. Left Ventricle The left ventricle is borderline dilated. There is no thrombus. There is borderline concentric left ventricular hypertrophy. Left ventricular systolic function is mildly reduced. LVEF ~ 40-45%. There is mild global hypokinesis of the left ventricle. Right Ventricle The right ventricle is normal in size and function. Atria The interatrial septum is intact with no evidence for an atrial septal defect. The left atrium is moderately dilated. Spontaneous contrast in LA. Spontaneous contrast in left atrial appendage. There is a thrombus seen in the left atrial appendage. Mitral Valve The mitral valve is grossly normal. There is no mitral valve stenosis. There is mild mitral regurgitation. Tricuspid Valve The tricuspid valve is not well visualized, but is grossly normal. There is trace tricuspid regurgitation. Aortic Valve The aortic valve is trileaflet. The aortic valve opens well. No hemodynamically significant valvular aortic stenosis. No aortic regurgitation is present. Pulmonic Valve The pulmonic valve is not well visualized. There is no pulmonic valvular regurgitation. Arteries The aortic root is not well visualized. Pericardium Small pericardial effusion. : MOUNIKA MARTINEZ Anil
[2019-10-28] MEDS ORDERED: DIGOXIN 0.125 MG TABLET PO ONE (13:15)
[2019-10-29 07:09] LABS: INSULIN-LIKE GROWTH FACTOR I 72 ng/mL (57-195)
--- NOTE | 2019-10-29 09:48 | PDOC DISCHARGE SUMMARY ---
Impression - Admit/DC Date/PCP Admission Date/Primary Care Provider: 10/23/19 18:10 JAMAR IQBAL Discharge Date: 10/29/19 - Discharge Diagnosis (1) Longstanding persistent atrial fibrillation Is this a current diagnosis for this admission?: Yes (2) Atrial thrombus Is this a current diagnosis for this admission?: Yes (3) Acute systolic congestive heart failure Is this a current diagnosis for this admission?: Yes (4) Asthma, chronic Is this a current diagnosis for this admission?: No (5) Diabetes mellitus type 1 Is this a current diagnosis for this admission?: Yes (6) Acromegaly Is this a current diagnosis for this admission?: Yes (7) UTI (urinary tract infection) Is this a current diagnosis for this admission?: No - Assessment Summary: 10/28/2019 The patient had her transesophageal echocardiogram today. There is an atrial appendage thrombus. She also had some atrial dilatation. Her atrial fibril lation has likely been chronic and longstanding. She just has not appreciated it. She is on metoprolol and digoxin. I increased the digoxin as this will help slow her rate but not decrease her blood pressure. She also will be on anticoagulation chronically. Diabetes mellitus type 1-the patient was having hypoglycemic episodes. Dr. Huitron made some changes in her regimen including changing her long-acting insulin to the mornings. Her Accu-Cheks are still higher than desired so I will increase her Lantus from 10 units to 14 units daily. She will continue sliding scale coverage. Asthma is stable. No changes in her current regimen Acromegaly-she has acromegaly. There are no acute interventions at this time. Continue to monitor. Urinary tract infection-urinary tract infection was suspected. Urine culture grew mixed urogenital daniel with no single pathologic organism. Currently not on antibiotic therapy. - Additional Information Resuscitation Status: Full Code Discharge Diet: Cardiac, Diabetic Discharge Activity: Activity As Tolerated, Balance Activity w/Rest, Weigh Daily Referrals: MOUNIKA MARTINEZ MD [ACTIVE STAFF] - ROD DECKER FNP [Primary Care Provider] - 11/06/19 2:00 pm Prescriptions: Apixaban [Eliquis 5 mg Tablet] 5 mg PO BID #30 tablet Digoxin [Lanoxin 0.25 mg Tablet] 0.25 mg PO DAILY #15 tablet Furosemide [Lasix 40 mg Tablet] 40 mg PO DAILY #15 tablet Metoprolol Succinate [Toprol Xl 50 mg Tab.sr] 50 mg PO Q12 #30 tab.sr.24h Lisinopril [Zestril] 2.5 mg PO DAILY #15 tablet Home Medications: Insulin Aspart [Novolog Flexpen] 0 unit SUBCUT .SLD SCALE 07/18/13 Acetaminophen [Acetaminophen Extra Strength] 500 mg PO DAILYP PRN 10/24/19 Albuterol Sulfate [Albuterol Sulfate Hfa] 2 puff IH BID@09,199910/24/19 Atorvastatin Calcium [Lipitor 40 mg Tablet] 40 mg PO DAILY@89910/24/19 Bromocriptine Mesylate 5 mg PO DAILY@89910/24/19 Icosapent Ethyl [Vascepa] 1 gm PO TID@0800,0900,1700 10/24/19 Insulin Degludec [Tresiba Flextouch U-100] 22 unit SQ QAM 10/24/19 Latanoprost [Xalatan] 1 drop OU DAILY@89910/24/19 Levocetirizine Dihydrochloride [Xyzal] 5 mg PO DAILY@89910/24/19 Montelukast Sodium [Singulair 10 mg Tablet] 10 mg PO DAILY@89910/24/19 Timolol Maleate 1 drop OU QHS 10/24/19 Apixaban [Eliquis 5 mg Tablet] 5 mg PO BID #30 tablet 10/29/19 Digoxin [Lanoxin 0.25 mg Tablet] 0.25 mg PO DAILY #15 tablet 10/29/19 Furosemide [Lasix 40 mg Tablet] 40 mg PO DAILY #15 tablet 10/29/19 Lisinopril [Zestril] 2.5 mg PO DAILY #15 tablet 10/29/19 Metoprolol Succinate [Toprol Xl 50 mg Tab.sr] 50 mg PO Q12 #30 tab.sr.24h 10/29/19 History of Present Illiness History of Present Illness: URSZULA VANEGAS is a 49 year old female with a history of asthma, type 1 diabetes mellitus, heart murmur, who presents to the hospital with complaints of cough and shortness of breath. Symptoms have been ongoing for the past 1 week. Patient admits to a dry cough without sputum production. Patient also admits to dyspnea on exertion which has been progressive. Denies any fever or chills. Admits to orthopnea which has been chronic for most of his life. Admits to recent PND. Denies any significant swelling. Also admits to dysuria. Denies prior history of atrial fibrillation or congestive heart failure. Hospital Course Hospital Course: The patient had a reasonably benign hospital course. With metoprolol and digoxin we are able to get her heart rate under control. Echocardiogram revealed systolic failure with an ejection fraction of 40% to 45%. In addition, she was in atrial fibrillation with a dilated atria and atrial thrombus so cardioversion was aborted. The patient has had a net negative fluid balance. Her breathing is comfortable. She has good rate control with metoprolol and digoxin. Heart failure will be treated with low-dose lisinopril and furosemide. A suspected urinary tract infection was ruled out by urine culture. Her diabetes mellitus was under reasonable control. She will return to her home regimen. She likely does not follow a very strict diabetic diet but her insulin dosing corresponds to her diet. She will be on chronic anticoagulation and she will follow-up with [facility] and Dr. Martinez. Physical Exam Vital Signs: Temp Pulse Resp BP Pulse Ox 97.7 F 86 16 99/67 L 96 10/29/19 07:51 10/29/19 07:51 10/29/19 07:51 10/29/19 07:51 10/29/19 07:51 Intake & Output 10/28/19 10/29/19 10/30/19 06:59 06:59 06:59 Intake Total 1010 2283 Output Total 1500 1900 Balance -490 383 Weight 81.7 kg 83.9 kg General appearance: PRESENT: no acute distress Head exam: PRESENT: atraumatic, other - Classic features of acromegaly Ear exam: PRESENT: normal external ear exam. ABSENT: bleeding, drainage Respiratory exam: PRESENT: rales - Faint rales at bases, symmetrical, unlabored. ABSENT: prolonged expiratory phas, rhonchi, tachypnea, wheezes Cardiovascular exam: PRESENT: irregular rhythm GI/Abdominal exam: PRESENT: normal bowel sounds, soft. ABSENT: distended, tenderness Rectal exam: PRESENT: deferred Gentrourinary exam: ABSENT: indwelling catheter Neurological exam: PRESENT: alert, awake, oriented to person, oriented to place, oriented to time, oriented to situation, CN II-XII grossly intact. ABSENT: altered Psychiatric exam: PRESENT: flat affect. ABSENT: agitated, anxious Focused psych exam: ABSENT: delusional, restlessness Results Laboratory Results: WBC 7.7 10^3/uL (4.0-10.5) 10/25/19 11:22 RBC 3.99 10^6/uL (3.72-5.28) 10/25/19 11:22 Hgb 12.2 g/dL (12.0-15.5) 10/25/19 11:22 Hct 36.0 % (36.0-47.0) 10/25/19 11:22 MCV 90 fl (80-97) 10/25/19 11:22 MCH 30.6 pg (27.0-33.4) 10/25/19 11:22 MCHC 34.0 g/dL (32.0-36.0) 10/25/19 11:22 RDW 16.0 % (11.5-14.0) H 10/25/19 11:22 Plt Count 278 10^3/uL (150-450) 10/25/19 11:22 Lymph % (Auto) 15.0 % (13-45) 10/25/19 11:22 [place] % (Auto) 6.1 % (3-13) 10/25/19 11:22 Eos % (Auto) 1.6 % (0-6) 10/25/19 11:22 Baso % (Auto) 0.9 % (0-2) 10/25/19 11:22 Absolute Neuts (auto) 5.9 10^3/uL (1.7-8.2) 10/25/19 11:22 Absolute Lymphs (auto) 1.2 10^3/uL (0.5-4.7) 10/25/19 11:22 Absolute Monos (auto) 0.5 10^3/uL (0.1-1.4) 10/25/19 11:22 Absolute Eos (auto) 0.1 10^3/uL (0.0-0.6) 10/25/19 11:22 Absolute Basos (auto) 0.1 10^3/uL (0.0-0.2) 10/25/19 11:22 Seg Neutrophils % 76.4 % (42-78) 10/25/19 11:22 Sodium 136.0 mmol/L (137-145) L 10/28/19 04:55 Potassium 4.0 mmol/L (3.6-5.0) 10/28/19 04:55 Chloride 103 mmol/L (98-107) 10/28/19 04:55 Carbon Dioxide 25 mmol/L (22-30) 10/28/19 04:55 Anion Gap 8 (5-19) 10/28/19 04:55 BUN 15 mg/dL (7-20) 10/28/19 04:55 Creatinine 0.39 mg/dL (0.52-1.25) L 10/28/19 04:55 Est GFR ( Amer) > 60 (>60) 10/28/19 04:55 Est GFR (MDRD) Non-Af > 60 (>60) 10/28/19 04:55 Glucose 187 mg/dL (75-110) H 10/28/19 04:55 POC Glucose 94 mg/dL (70-110) 10/29/19 07:51 Hemoglobin A1c % 8.0 % (4.7-6.0) H 10/27/19 04:31 Lactic Acid 0.7 mmol/L (0.7-2.1) 10/23/19 23:01 Calcium 8.4 mg/dL (8.4-10.2) 10/28/19 04:55 Phosphorus 4.0 mg/dL (2.5-4.5) 10/27/19 04:31 Magnesium 1.8 mg/dL (1.6-2.3) 10/28/19 04:55 Total Bilirubin 0.4 mg/dL (0.2-1.3) 10/23/19 13:05 Direct Bilirubin 0.3 mg/dL (0.0-0.4) 10/23/19 13:05 Neonat Total Bilirubin Not Reportable 10/23/19 13:05 Neonat Direct Bilirubin Not Reportable 10/23/19 13:05 Neonat Indirect Bili Not Reportable 10/23/19 13:05 AST 42 U/L (14-36) H 10/23/19 13:05 ALT 39 U/L (<35) H 10/23/19 13:05 Alkaline Phosphatase 95 U/L (38-126) 10/23/19 13:05 Creatine Kinase 75 U/L (30-135) 10/23/19 13:05 CK-MB (CK-2) 1.31 ng/mL (<4.55) 10/23/19 13:05 Troponin I < 0.012 ng/mL 10/23/19 13:05 NT-Pro-B Natriuret Pep 2370 pg/mL (<125) H 10/23/19 13:05 Total Protein 6.6 g/dL (6.3-8.2) 10/23/19 13:05 Albumin 3.4 g/dL (3.5-5.0) L 10/23/19 13:05 TSH 2.40 uIU/mL (0.47-4.68) 10/27/19 04:31 Free T4 1.49 ng/dL (0.78-2.19) 10/27/19 04:31 Insulin-like GF I 72 ng/mL (57-195) 10/27/19 04:31 Urine Color YELLOW 10/25/19 07:45 Urine Appearance CLEAR 10/25/19 07:45 Urine pH 6.0 (5.0-9.0) 10/25/19 07:45 Ur Specific Ruby 1.010 10/25/19 07:45 Urine Protein 30 mg/dL (NEGATIVE) H 10/25/19 07:45 Urine Glucose (UA) NEGATIVE mg/dL (NEGATIVE) 10/25/19 07:45 Urine Ketones NEGATIVE mg/dL (NEGATIVE) 10/25/19 07:45 Urine Blood SMALL (NEGATIVE) H 10/25/19 07:45 Urine Nitrite NEGATIVE (NEGATIVE) 10/25/19 07:45 Urine Bilirubin NEGATIVE (NEGATIVE) 10/25/19 07:45 Urine Urobilinogen NEGATIVE mg/dL (<2.0) 10/25/19 07:45 Ur Leukocyte Esterase TRACE (NEGATIVE) H 10/25/19 07:45 Urine WBC (Auto) 21 /HPF 10/25/19 07:45 Urine RBC (Auto) 4 /HPF 10/25/19 07:45 U Hyaline Cast (Auto) 4 /LPF 10/23/19 15:18 Urine Bacteria (Auto) TRACE /HPF 10/24/19 06:22 Urine WBC Clumps FEW /HPF 10/24/19 06:22 Squamous Epi Cells Auto 1 /HPF 10/25/19 07:45 Urine Mucus (Auto) RARE /LPF 10/25/19 07:45 Urine Ascorbic Acid NEGATIVE (NEGATIVE) 10/25/19 07:45 Influenza A (Rapid) NEGATIVE (NEGATIVE) 10/23/19 13:48 Influenza B (Rapid) NEGATIVE (NEGATIVE) 10/23/19 13:48 10/23/19 10/23/19 13:05 13:05 CK-MB (CK-2) 1.31 Troponin I < 0.012 NT-Pro-B Natriuret Pep 2370 H Impressions: Chest X-Ray 10/23/19 13:27 IMPRESSION: Bilateral perihilar opacities. Correlate with clinical findings for multifocal pneumonia and pulmonary edema. Chest CT 10/24/19 00:00 IMPRESSION: Findings compatible with CHF with cardiomegaly, central vascular congestion, interstitial edema and small bilateral effusions. Chest X-Ray 10/28/19 08:10 IMPRESSION: IMPROVED AERATION. NO ACUTE RADIOGRAPHIC FINDING IN THE CHEST. Plan Health Concerns: Atrial fibrillation that has probably been present chronically for some time. Newly diagnosed systolic heart failure with depressed ejection fraction of 40 to 45% Plan of Treatment: New medications as above. Follow-up with Dr. Martinez. Likely to have a repeat ANDREI in 2 months and consider cardioversion if she has not spontaneously converted. Goals: New regimen for heart failure and atrial fibrillation as outlined above. Time Spent: Greater than 30 Minutes Stroke Is this a Stroke Patient?: No Acute Heart Failure - Is this a Heart Failure Patient?: Yes Documentation of LVEF assessment?: Yes LVEF < 40%?: No- if no continue to question #3 3. Anticoagulant therapy for permanect/persistent/paraoxysmal Afib or Aflutter: Yes Follow-up Appointment scheduled within 7 days?: Yes
[2019-10-29] MEDS ORDERED: INSULIN GLARGINE,HUM.REC.ANLOG 1,000 UNIT/10 ML VIAL SUBCUT SCH (10:00)
[2019-10-29] MEDS ORDERED: DIGOXIN 0.25 MG TABLET PO SCH (10:00)
[2019-10-29] MEDS: INSULIN LISPRO 100 UNIT/ML 3 ML VIAL SUBCUT SCH ×3 (10:24→16:51)
[2019-10-29] MEDS: METOPROLOL SUCCINATE 25 MG TAB.SR.24H PO SCH (10:28)
[2019-10-29] MEDS: FUROSEMIDE 40 MG TABLET PO SCH (10:28)
[2019-10-29] MEDS: APIXABAN 5 MG TABLET PO SCH (10:29)
--- NOTE | 2019-10-29 13:05 | PDOC PROGRESS REPORT ---
Subjective Progress Note for:: 10/29/19 Subjective:: Feels mildly better. Heart rate is better controlled on telemetry. Continues to be in atrial fibrillation. Also transesophageal echocardiogram was performed cardioversion could not be attempted due to the presence of left atrial appendage thrombus yesterday. Reason For Visit: CHF, AFIB RVR, HYPOTENSION Physical Exam Vital Signs: Temp Pulse Resp BP Pulse Ox 97.7 F 86 16 99/67 L 96 10/29/19 07:51 10/29/19 07:51 10/29/19 07:51 10/29/19 07:51 10/29/19 07:51 Intake & Output 10/28/19 10/29/19 10/30/19 06:59 06:59 06:59 Intake Total 1010 2283 Output Total 1500 1900 Balance -490 383 Weight 81.7 kg 83.9 kg General appearance: PRESENT: no acute distress, cooperative, well-developed, other - Acromegalic facies Head exam: PRESENT: atraumatic, normocephalic Eye exam: PRESENT: conjunctiva pink, EOMI Mouth exam: PRESENT: moist Respiratory exam: PRESENT: crackles, decreased breath sounds, symmetrical, unlabored Cardiovascular exam: PRESENT: irregular rhythm, +S1, +S2 Pulses: PRESENT: normal radial pulses GI/Abdominal exam: PRESENT: soft Rectal exam: PRESENT: deferred Musculoskeletal exam: PRESENT: normal inspection Neurological exam: PRESENT: alert, awake, oriented to person, oriented to place, oriented to time, oriented to situation Psychiatric exam: PRESENT: appropriate affect Skin exam: PRESENT: dry, intact, normal color Results Laboratory Results: 10/25/19 11:22 10/28/19 04:55 10/23/19 20:05 Blood Blood Culture - Final NO GROWTH IN 5 DAYS 10/23/19 17:19 Blood Blood Culture - Final NO GROWTH IN 5 DAYS 10/23/19 10/23/19 10/23/19 13:05 13:05 13:05 Creatine Kinase 75 CK-MB (CK-2) 1.31 Troponin I < 0.012 NT-Pro-B Natriuret Pep 2370 H EKG Comments: Telemetry presently shows atrial fibrillation with controlled ventricular response at about 92 bpm. Impressions: Chest CT 10/24/19 00:00 IMPRESSION: Findings compatible with CHF with cardiomegaly, central vascular congestion, interstitial edema and small bilateral effusions. Chest X-Ray 10/28/19 08:10 IMPRESSION: IMPROVED AERATION. NO ACUTE RADIOGRAPHIC FINDING IN THE CHEST. Assessment & Plan - Diagnosis (1) CHF exacerbation Qualifiers: Heart failure type: unspecified Qualified Code(s): I50.9 - Heart failure, unspecified Is this a current diagnosis for this admission?: Yes Plan: Acute decompensated congestive heart failure. Mildly reduced left ventricular ejection fraction estimated at 40 to 45%. Estimating ejection fraction on the study was difficult. Patient appears to be responding to diuretic therapy. Continue guideline directed medical therapy for congestive heart failure. This should consist of beta-blockers and in this patient also digoxin for better control of ventricular rate during atrial fibrillation as we were unable to cardiovert. (2) Atrial fibrillation with rapid ventricular response Is this a current diagnosis for this admission?: Yes Plan: Presently the rate is better controlled. Patient does not endorse prior history of atrial fibrillation although echocardiogram shows at least moderate left atrial dilatation. It is possible that the patient has had longstanding atrial fibrillation and possibly was unaware of this. ANDREI was performed LA thrombus seen Aborted cardioversion Need to continue systemic anticoagulation and rate control medications.
[2019-10-29 16:54] VITALS: BP 101/69
[2019-11-02 11:48] LABS: INSULIN-LIKE GROWTH FACTOR II 517 ng/mL (.)
== END 2019-10-29 18:25 | disposition home or self-care (01) | DRG 308 ==
LOC: ER 13:06 → EH 17:34 → OBSVTOIN 18:10 → 3W 10-24 16:59
PROVIDERS: ADMIT Internal Medicine; ATTEND Internal Medicine
DX: I48.11 Longstanding persistent atrial fibrillation (principal); I50.21 Acute systolic (congestive) heart failure; N39.0 Urinary tract infection, site not specified; E10.649 Type 1 diabetes mellitus with hypoglycemia without coma; I51.3 Intracardiac thrombosis, not elsewhere classified; I11.0 Hypertensive heart disease with heart failure; J44.9 Chronic obstructive pulmonary disease, unspecified; E22.0 Acromegaly and pituitary gigantism; E78.5 Hyperlipidemia, unspecified; F32.9 Major depressive disorder, single episode, unspecified; Z79.01 Long term (current) use of anticoagulants; Z79.4 Long term (current) use of insulin; Z87.891 Personal history of nicotine dependence
CPT/HCPCS: 1922; 36415; 71045; 71250; 80048; 80053; 81001; 82550; 82553; 82962; 83036; 83519; 83605; 83735; 83880; 84100; 84305; 84439; 84443; 84484; 85025; 85027; 87040; 87070; 87086; 87205; 87804; 93005; 93010; 93306; 93312; 93325; 94799; 96361; 96365; 96366; 96367; 96372; 96375; 96376; 99291; J0696; J1160; J1610; J1650; J1815; J1940; J2250; J2704; J3475; J3490; J7030

== ENCOUNTER → 2020-04-08 | Outpatient (CLI) | payer MEDICARE, MEDICAID ==
--- NOTE | 2020-04-08 15:02 | RADIOLOGY REPORT (SQ) ---
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 Contrast enhanced T1 images. Images stored on PACS. CONTRAST TYPE AND DOSE: 15 mL Prohance. RENAL FUNCTION: Not indicated. ACR Type II contrast agent associated with few, if any, unconfounded cases of NSF LIMITATIONS: Motion artifact. FINDINGS: ANATOMY: Fibrous dysplasia central skullbase and clivus. Chronic sphenoid sinus disease. Shallow sella turcica. No pituitary mass identified. Midline infundibulum. CSF SPACES: Normal size and contour. No hemorrhage. CEREBRUM: A few high-signal intensity lesions scattered throughout the white matter on FLAIR imaging with distribution suggesting chronic microvascular ischemic change. Sulci and gyri normal in size and contour. No evidence of hemorrhage, mass or extraaxial fluid collection. No enhancing lesions. POSTERIOR FOSSA: Old lacunar infarct right cerebellum. DIFFUSION: Negative for acute or subacute infarction. ORBITS: No masses. Globes normal. PARANASAL SINUSES: See above. OTHER: No other significant finding. IMPRESSION: Chronic fibrous dysplasia. No pituitary tumor identified. Mild chronic ischemic change s. EVIDENCE OF ACUTE STROKE: NO. TECHNICAL DOCUMENTATION: JOB ID: [id number] [email or web address]- All Rights Reserved Reading location - IP/workstation name: [email or web address]
== END ==
LOC: RAD 12:27
PROVIDERS: ATTEND Nurse Practitioner Family
DX: E22.0 Acromegaly and pituitary gigantism (principal)
CPT/HCPCS: 82565; 70553; A9576

== ENCOUNTER 2020-04-21 11:47 | Inpatient (IN) | payer MEDICARE, MEDICAID ==
[2020-04-21 13:37] LABS: ABSOLUTE BASOPHILS # (AUTO) 0.1 10^3/uL (0.0-0.2); ABSOLUTE EOSINOPHILS # (AUTO) 0.1 10^3/uL (0.0-0.6); ABSOLUTE LYMPHOCYTES (AUTO) 1.3 10^3/uL (0.5-4.7); ABSOLUTE MONOCYTES (AUTO) 0.5 10^3/uL (0.1-1.4); ABSOLUTE NEUT (AUTO) 4.5 10^3/uL (1.7-8.2); BASOPHILS % (AUTO) 1.2 % (0-2); EOSINOPHILS % (AUTO) 2.2 % (0-6); LYMPHOCYTES % (AUTO) 19.9 % (13-45); MEAN CORPUSCULAR HEMOGLOBIN 28.9 pg (27.0-33.4); MEAN CORPUSCULAR HGB CONC 32.5 g/dL (32.0-36.0); MEAN CORPUSCULAR VOLUME 89 fl (80-97); PLATELET COUNT 298 10^3/uL (150-450); RED BLOOD COUNT 4.15 10^6/uL (3.72-5.28); RED CELL DISTRIBUTION WIDTH 18.1 % (11.5-14.0); SEGMENTED NEUTROPHILS % (AUTO) 69.7 % (42-78); TOTAL CELLS COUNTED % (AUTO) 100 %; WHITE BLOOD COUNT 6.5 10^3/uL (4.0-10.5)
[2020-04-21] MEDS ORDERED: NORMAL SALINE 1000 ML 1,000 ML IV ONE (13:54)
[2020-04-21 14:01] LABS: ALBUMIN 3.7 g/dL (3.5-5.0); ALKALINE PHOSPHATASE 77 U/L (38-126); ANION GAP 8 (5-19); ASPARTATE AMINO TRANSFERASE 62 U/L (14-36); BILIRUBIN,DIRECT 0.4 mg/dL (0.0-0.4); BILIRUBIN,TOTAL 0.8 mg/dL (0.2-1.3); BLOOD UREA NITROGEN 13 mg/dL (7-20); CALCIUM 9.3 mg/dL (8.4-10.2); CARBON DIOXIDE 23 mmol/L (22-30); CHLORIDE 108 mmol/L (98-107); CREATINE KINASE 106 U/L (30-135); GLUCOSE 225 mg/dL (75-110); POTASSIUM 5.1 mmol/L (3.6-5.0)
[2020-04-21 14:13] LABS: CREATINE KINASE MB 1.38 ng/mL (<4.55); TROPONIN I 0.014 ng/mL
--- NOTE | 2020-04-21 14:40 | RADIOLOGY REPORT (SQ) ---
EXAM DESCRIPTION: CHEST SINGLE VIEW IMAGES COMPLETED DATE/TIME: 04/21/2020 2:31 pm REASON FOR STUDY: shortness of breath COMPARISON: 10/28/2019 EXAM PARAMETERS: NUMBER OF VIEWS: One view. TECHNIQUE: Single frontal radiographic view of the chest acquired. RADIATION DOSE: NA LIMITATIONS: None. FINDINGS: LUNGS AND PLEURA: Bilateral basilar interstitial airspace disease. Cephalization of vesse ls. MEDIASTINUM AND HILAR STRUCTURES: No masses. Contour normal. HEART AND VASCULAR STRUCTURES: Cardiomegaly with central vascular prominence. BONES: No acute findings. HARDWARE: None in the chest. OTHER: No other significant finding. IMPRESSION: Cardiomegaly and vascular congestion new from prior study. TECHNICAL DOCUMENTATION: JOB ID: [id number] 2010 [employer]- All Rights Reserved Reading location - IP/workstation name: [email or web address]
--- NOTE | 2020-04-21 15:38 | ER Document Report ---
ED General - General Chief Complaint: Arrhythmia Stated Complaint: CHEST PAIN,COUGH,SORE THROAT Time Seen by Provider: 04/21/20 13:07 Primary Care Provider: KAILYN ADORNO, [employer] [Primary Care Provider] - Follow up as needed Information source: Patient TRAVEL OUTSIDE OF THE [place] IN LAST 30 DAYS: No - HPI Notes: Patient presents complaining of shortness of breath. She states for several days she has had cough and shortness of breath. She denies any fevers. She has had no known ill contacts or COVID exposures. She states she does have a chronic history of A. fib and has had some palpitations recently as well. She also states she is had some centralized chest pain. Nothing makes his pain better or worse. For her shortness of breath she states she does get worse with exertion and is slightly better with rest. It does obviously have no radiation. It has been moderate to severe in intensity. And has been relatively constant over the last several days. - Related Data Allergies/Adverse Reactions: No Known Allergies Allergy (Unverified 10/23/19 13:27) Past Medical History - General Information source: Patient - Social History Smoking Status: Former Smoker Frequency of alcohol use: None Drug Abuse: None Family History: Reviewed & Not Pertinent - Past Medical History Cardiac Medical History: Reports: Hx Atrial Fibrillation, Hx Hypercholesterolemia, Hx Hypertension Pulmonary Medical History: Reports: Hx Asthma Denies: Hx Tuberculosis Endocrine Medical History: Reports: Hx Diabetes Mellitus Type 1 Skin Medical History: Denies Hx MRSA Psychiatric Medical History: Reports: Hx Depression Past Surgical History: Reports: Other - Immunizations Hx Diphtheria, Pertussis, Tetanus Vaccination: Yes Review of Systems - Review of Systems Constitutional: Malaise, Weakness. denies: Chills, Fever Cardiovascular: Chest pain, Palpitations Respiratory: Cough, Short of breath -: Yes All other systems reviewed and negative Physical Exam - Vital signs Vitals: Temp Pulse Resp BP Pulse Ox 98.4 F 130 H 16 122/72 100 04/21/20 12:40 04/21/20 12:40 04/21/20 12:40 04/21/20 12:40 04/21/20 12:40 Interpretation: Hypotensive, Tachycardic - General General appearance: Appears well, Alert - HEENT Head: Normocephalic, Atraumatic Eyes: Normal Pupils: PERRL - Respiratory Respiratory status: No respiratory distress Chest status: Nontender Breath sounds: Rales Chest palpation: Normal - Cardiovascular Rhythm: Irregularly irregular, Tachycardia Heart sounds: Normal auscultation Murmur: No - Abdominal Inspection: Normal Distension: No distension Bowel sounds: Normal Tenderness: Nontender Organomegaly: No organomegaly - Back Back: Normal, Nontender - Extremities General upper extremity: Normal inspection, Nontender, Normal color, Normal ROM, Normal temperature General lower extremity: Normal inspection, Nontender, Normal color, Normal ROM, Normal temperature, Normal weight bearing. No: Gilbert's sign - Neurological Neuro grossly intact: Yes Cognition: Normal Orientation: AAOx4 Temple Coma Scale Eye Opening: Spontaneous Temple Coma Scale Verbal: Oriented Temple Coma Scale Motor: Obeys Commands Beba Coma Scale Total: 15 Speech: Normal Motor strength normal: LUE, RUE, LLE, RLE Sensory: Normal - Psychological Associated symptoms: Normal affect, Normal mood - Skin Skin Temperature: Warm Skin Moisture: Dry Skin Color: Normal Course - Re-evaluation Re-evalutation: 04/21/20 15:37 Patient presents complaining of cough and shortness of breath. She was also noticed to be hypotensive on several blood pressure measurements. It was felt initially that patient may be septic so a COVID test was done and patient was worked up as well as given an IV fluid bolus. Results of come back without significant evidence of infection. Chest x-ray is clear, there is no elevated white blood cell count. Patient has no fever here. Her BNP is elevated. Patient did get better with an IV fluid bolus. She states she feels better. Her oxygen saturation went from 94 to 99%. And her blood pressure is now better as well. Even though her BNP is elevated since she has done better with IV fluids I have decided not to give her any Lasix. I do think due to the patient's complicated clinical picture she is going require admission to further delineate the cause of her hypotension and shortness of breath whether this be an occult infection, decreased ejection fraction secondary to cardiomyopathy or other occult process. - Vital Signs Vital signs: Temp Pulse Resp BP Pulse Ox 98.4 F 130 H 15 90/72 L 99 04/21/20 12:40 04/21/20 12:40 04/21/20 14:01 04/21/20 14:00 04/21/20 14:01 - Laboratory Result Diagrams: 04/21/20 13:18 04/21/20 13:18 Laboratory results interpreted by me: 04/21/20 04/21/20 04/21/20 13:18 13:18 13:18 RDW 18.1 H Potassium 5.1 H Chloride 108 H Creatinine 0.42 L Glucose 225 H AST 62 H ALT 48 H NT-Pro-B Natriuret Pep 2890 H - Diagnostic Test Radiology reviewed: Image reviewed, Reports reviewed - EKG Interpretation by Me Rate: Tachycardia - 130 Rhythm: A.Fib [place]/QRS: No: Right axis deviation, Left axis deviation Critical Care Note - Critical Care Note Total time excluding time spent on procedures (mins): 45 Comments: Proxy 45 minutes of critical care time were spent managing this patient's atrial fibrillation with rapid ventricular response and hypotension. This time spent doing multiple reassessments. It is been talking with transportation sales consultant. Spent reviewing imaging, laboratories, and old records. Discharge - Discharge Clinical Impression: Atrial fibrillation with RVR Hypotension Qualifiers: Hypotension type: other hypotension type Qualified Code(s): I95.89 - Other hypotension CHF exacerbation Qualifiers: Heart failure type: unspecified Qualified Code(s): I50.9 - Heart failure, unspecified Condition: Serious Disposition: ADMITTED INPATIENT Admitting Provider: Aram (Hospitalist) Unit Admitted: Telemetry Referrals: KAILYN ADORNO NP [Primary Care Provider] - Follow up as needed
[2020-04-21] MEDS ORDERED: METOPROLOL TARTRATE PF/INJ 5 MG/5 ML SDV IV PRN (16:22)
[2020-04-21] MEDS ORDERED: GLUCAGON,HUMAN RECOMB 1 MG INJ IM PRN (16:39)
[2020-04-21] MEDS ORDERED: DEXTROSE 40% GEL 15 GM TUBE PO PRN (16:39)
[2020-04-21] MEDS ORDERED: DEXTROSE 50%-WATER 25 GM/50 ML DISP.SYRIN IV PRN (16:39)
[2020-04-21] MEDS ORDERED: FUROSEMIDE INJ/PF 40 MG/4 ML SDV IV ONE (17:00)
--- NOTE | 2020-04-21 17:03 | PDOC H&P ---
History of Present Illness Admission Date/PCP: 04/21/20 15:49 KAILYN ADORNO NP Patient complains of: Shortness of breath, chest pain History of Present Illness: URSZULA VANEGAS is a 50 year old female with history of CHF, persistent atrial fibrillation, diabetes, who presents to the hospital for evaluation of progressive shortness of breath at rest and on exertion. Her symptoms started 1 week ago. Also associated with a dry cough. Denies any significant sputum production. She admits to orthopnea and some episodes of PND. Denies any leg swelling but admits to increased abdominal girth. Exercise tolerance is also depreciated. Regarding her chest pain, she describes this as substernal which started about 2 days ago and occurs every now and then. Describes it being worse with exertion but does not improve with rest. Denies any nausea or vomit ing. Denies any history of heart attacks. Currently chest pain is mild and feels just like a tightness at this point. She denies any fevers or chills or sick COVID-19 exposures. 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 Does not know all her medications to verify if she has been taking all of them but does states compliance. Admitted in September 2019 for similar reasons and ended up being discharged with plan to follow-up with Dr. Castro in outpatient. Past Medical History Cardiac Medical History: Reports: Atrial Fibrillation, Hyperlipidema, Hypertension Pulmonary Medical History: Reports: Asthma Denies: Tuberculosis Endocrine Medical History: Reports: Diabetes Mellitus Type 1 Psychiatric Medical History: Reports: Depression Past Surgical History Past Surgical History: Reports: Other Social History Lives with: Spouse/Significant other Smoking Status: Former Smoker Frequency of Alcohol Use: Rare Hx Recreational Drug Use: No Hx Prescription Drug Abuse: No - Advance Directive Resuscitation Status: Full Code Family History Family History: Hypertension Parental Family History Reviewed: Yes Children Family History Reviewed: NA Sibling(s) Family History Reviewed.: NA Medication/Allergy Home Medications: Insulin Aspart [Novolog Flexpen] 0 unit SUBCUT .SLD SCALE 07/18/13 Acetaminophen [Acetaminophen Extra Strength] 500 mg PO DAILYP PRN 10/24/19 Albuterol Sulfate [Albuterol Sulfate Hfa] 2 puff IH BID@0900,199910/24/19 Atorvastatin Calcium [Lipitor 40 mg Tablet] 40 mg PO DAILY@0900 10/24/19 Bromocriptine Mesylate 5 mg PO DAILY@0900 10/24/19 Icosapent Ethyl [Vascepa] 1 gm PO TID@0800,0900,1700 10/24/19 Insulin Degludec [Tresiba Flextouch U-100] 22 unit SQ QAM 10/24/19 Latanoprost [Xalatan] 1 drop OU DAILY@0910/24/19 Levocetirizine Dihydrochloride [Xyzal] 5 mg PO DAILY@0910/24/19 Montelukast Sodium [Singulair 10 mg Tablet] 10 mg PO DAILY@0900 10/24/19 Timolol Maleate 1 drop OU QHS 10/24/19 Apixaban [Eliquis 5 mg Tablet] 5 mg PO BID #30 tablet 10/29/19 Digoxin [Lanoxin 0.25 mg Tablet] 0.25 mg PO DAILY #15 tablet 10/29/19 Furosemide [Lasix 40 mg Tablet] 40 mg PO DAILY #15 tablet 10/29/19 Lisinopril [Zestril] 2.5 mg PO DAILY #15 tablet 10/29/19 Metoprolol Succinate [Toprol Xl 50 mg Tab.sr] 50 mg PO Q12 #30 tab.sr.24h 10/29/19 Allergies/Adverse Reactions: No Known Allergies Allergy (Unverified 10/23/19 13:27) Review of Systems Constitutional: ABSENT: chills, fever(s) Eyes: ABSENT: visual disturbances Ears: ABSENT: hearing changes Nose, Mouth, and Throat: ABSENT: headache(s) Cardiovascular: PRESENT: chest pain, dyspnea on exertion, orthropnea, pal pitations. ABSENT: edema Respiratory: PRESENT: cough, dyspnea. ABSENT: sputum Gastrointestinal: PRESENT: abdominal pain. ABSENT: nausea, vomiting Genitourinary: ABSENT: dysuria Integumentary: ABSENT: diaphoresis Neurological: PRESENT: dizziness. ABSENT: confusion Endocrine: PRESENT: polyuria Hematologic/Lymphatic: ABSENT: easy bleeding Allergic/Immunologic: PRESENT: seasonal rhinorrhea Physical Exam Vital Signs: Temp Pulse Resp BP Pulse Ox 98.4 F 130 H 25 H 120/89 H 96 04/21/20 12:40 04/21/20 12:40 04/21/20 16:06 04/21/20 16:00 04/21/20 15:59 Intake & Output 04/20/20 04/21/20 04/22/20 06:59 06:59 06:59 Intake Total 1000 Balance 1000 Weight 68.039 kg General appearance: PRESENT: no acute distress, cooperative Head exam: PRESENT: other - Very prominent jaw and elongated face Eye exam: PRESENT: EOMI Mouth exam: PRESENT: neck supple Neck exam: PRESENT: JVD Respiratory exam: PRESENT: crackles - bilateral lung covarrubias, symmetrical, unlabored. ABSENT: prolonged expiratory phas, tachypnea Cardiovascular exam: PRESENT: irregular rhythm, +S1, +S2, tachycardia GI/Abdominal exam: PRESENT: distended, normal bowel sounds, soft, tenderness - mild. ABSENT: firm, guarding, hernia, rebound, rigid Extremities exam: ABSENT: pedal edema Neurological exam: PRESENT: alert, awake, oriented to person, oriented to place, oriented to time, oriented to situation Psychiatric exam: ABSENT: agitated, anxious Skin exam: ABSENT: jaundice Results Laboratory Results: 04/21/20 13:18 04/21/20 13:18 04/21/20 04/21/20 04/21/20 13:18 13:18 13:18 WBC 6.5 RBC 4.15 Hgb 12.0 Hct 37.0 MCV 89 MCH 28.9 MCHC 32.5 RDW 18.1 H Plt Count 298 Seg Neutrophils % 69.7 Sodium 139.3 Potassium 5.1 H Chloride 108 H Carbon Dioxide 23 Anion Gap 8 BUN 13 Creatinine 0.42 L Est GFR ( Amer) > 60 Glucose 225 H Lactic Acid Calcium 9.3 Magnesium 1.9 Total Bilirubin 0.8 AST 62 H Alkaline Phosphatase 77 Total Protein 7.0 Albumin 3.7 04/21/20 14:12 WBC RBC Hgb Hct MCV MCH MCHC RDW Plt Count Seg Neutrophils % Sodium Potassium Chloride Carbon Dioxide Anion Gap BUN Creatinine Est GFR ( Amer) Glucose Lactic Acid 0.8 Calcium Magnesium Total Bilirubin AST Alkaline Phosphatase Total Protein Albumin 04/21/20 04/21/20 04/21/20 13:18 13:18 13:18 Creatine Kinase 106 CK-MB (CK-2) 1.38 Troponin I 0.014 NT-Pro-B Natriuret Pep 2890 H Impressions: Chest X-Ray 04/21/20 00:00 IMPRESSION: Cardiomegaly and vascular congestion new from prior study. Assessment and Plan - Diagnosis (1) Acute on chronic systolic (congestive) heart failure Is this a current diagnosis for this admission?: Yes Plan: Started on diuresis with IV Lasix 40 mg twice daily. 1500 cc fluid restriction, daily weights, monitor on telemetry. Strict I's and O's. Monitor and replete electrolytes accordingly. We will resume lisinopril once blood pressure improves. Echocardiogram in September 2019 shows EF of 40 to 45% Cardiology consulted (2) Persistent atrial fibrillation with rapid ventricular response Is this a current diagnosis for this admission?: Yes Plan: On last admission, patient was unable to get cardioverted due to atrial appendage thrombus noted on ANDREI. I will resume patient's Toprol-XL IV Lopressor as needed We will give patient IV digoxin given her soft blood pressures to help control heart rate Telemetry monitoring. Continue Eliquis (3) Chest pain Qualifiers: Chest pain type: unspecified Qualified Code(s): R07.9 - Chest pain, unspecified Is this a current diagnosis for this admission?: Yes Plan: Does have substernal chest pain. Could be related to patient's CHF exacerbation. Troponin is 0.014. Will check another 1 EKG seems unchanged from prior Check lipid panel We will monitor closely. Regardless, patient will need ischemic evaluation via stress test at some point especially given her new onset CHF a few months ago, if she has not already had one done as outpatient. Cardiology is consulted. (4) Hypotension Qualifiers: Hypotension type: other hypotension type Qualified Code(s): I95.89 - Other hypotension Is this a current diagnosis for this admission?: Yes Plan: May be secondary to heart failure or rapid A. fib. Did receive a liter bolus in ER will hold off on further fluids. BP is improved right now. Will monitor closely. Treatment of A. fib as above. 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 Continue Eliquis. (6) Person under investigation for COVID-19 Is this a current diagnosis for this admission?: Yes Plan: Tested for COVID-19 in ER given bilateral infiltrates on chest x-ray and transaminitis. Will await results. (7) Diabetes mellitus type 1 Is this a current diagnosis for this admission?: Yes Plan: Accu-Cheks, sliding scale, Lantus (8) Acromegaly Is this a current diagnosis for this admission?: Yes - Time Time Spent with patient: 35 or more minutes Anticipated Discharge Disposition: Home, Self Care Anticipated Discharge Timeframe: Undetermined
[2020-04-21] MEDS ORDERED: METOPROLOL SUCCINATE 50 MG TAB.SR.24H PO ONE (17:30)
[2020-04-21] MEDS: APIXABAN 5 MG TABLET PO SCH (17:51)
[2020-04-21] MEDS: DIGOXIN INJ 0.5 MG/2 ML AMPULE IV SCH ×2 (17:51→23:35)
--- NOTE | 2020-04-21 22:00 | EKG REPORT ---
SEVERITY:- ABNORMAL ECG - ATRIAL FIBRILLATION REPOL ABNRM SUGGESTS ISCHEMIA, DIFFUSE LEADS : Confirmed by: Ijeoma Villegas MD 21-Apr-2020 21:59:44
[2020-04-21] MEDS: INSULIN LISPRO 100 UNIT/ML 3 ML VIAL SUBCUT SCH (22:12)
[2020-04-22 04:49] LABS: HEMATOCRIT 33.4 % (36.0-47.0); HEMOGLOBIN 10.9 g/dL (12.0-15.5); MEAN CORPUSCULAR HEMOGLOBIN 28.9 pg (27.0-33.4); MEAN CORPUSCULAR HGB CONC 32.8 g/dL (32.0-36.0); MEAN CORPUSCULAR VOLUME 88 fl (80-97); PLATELET COUNT 242 10^3/uL (150-450); RED BLOOD COUNT 3.79 10^6/uL (3.72-5.28); RED CELL DISTRIBUTION WIDTH 17.5 % (11.5-14.0)
[2020-04-22 04:58] LABS: INTERNATIONAL RATION (INR) 1.25; PROTHROMBIN TIME 15.9 SEC (11.4-15.4)
[2020-04-22 04:59] LABS: PARTIAL THROMBOPLASTIN TIME 35.7 SEC (23.5-35.8)
[2020-04-22 05:01] LABS: D-DIMER 0.61 ug/mL (0.00-0.50)
[2020-04-22 05:02] LABS: ALBUMIN 3.3 g/dL (3.5-5.0); ALKALINE PHOSPHATASE 69 U/L (38-126); ANION GAP 6 (5-19); ASPARTATE AMINO TRANSFERASE 44 U/L (14-36); BILIRUBIN,DIRECT 0.3 mg/dL (0.0-0.4); BILIRUBIN,TOTAL 0.6 mg/dL (0.2-1.3); BLOOD UREA NITROGEN 11 mg/dL (7-20); CALCIUM 8.6 mg/dL (8.4-10.2); CARBON DIOXIDE 27 mmol/L (22-30); CHLORIDE 108 mmol/L (98-107); CHOLESTEROL 142.52 mg/dL (0-200); GLUCOSE 93 mg/dL (75-110); TOTAL PROTEIN 6.5 g/dL (6.3-8.2); TRIGLYCERIDES 52 mg/dL (<150)
[2020-04-22 05:13] LABS: DIRECT LDL 88 mg/dL (<100)
[2020-04-22 05:17] LABS: POTASSIUM 3.7 mmol/L (3.6-5.0)
[2020-04-22] MEDS: DIGOXIN INJ 0.5 MG/2 ML AMPULE IV SCH (06:14)
[2020-04-22] MEDS: APIXABAN 5 MG TABLET PO SCH ×2 (09:16→17:20)
[2020-04-22] MEDS: INSULIN LISPRO 100 UNIT/ML 3 ML VIAL SUBCUT SCH ×4 (09:17→21:23)
--- NOTE | 2020-04-22 09:23 | PDOC CONSULTATION ---
Consultation Consult Date: 04/22/20 Attending physician:: KEYANNA MONTEZ Provider Consulted: MAGGIE KNIGHT Consult reason:: Rapid a-fib and HF History of Present Illness Admission Date/PCP: 04/21/20 15:49 KAILYN ADORNO NP History of Present Illness: URSZULA VANEGAS is a 50 year old female with history of heart failure with reduced ejection fraction (EF 40 to 45% in September 2019), persistent atrial fibrillation, type 2 diabetes, who is consulted to our service for further evaluation and treatment of rapid atrial fibrillation and heart failure. The patient presented to our emergency room yesterday complaining of progressive shortness of breath at rest, dyspnea on exertion, orthopnea and PND for at least 1 to 2 weeks. The patient states that she is now so short of breath that she cannot go to her mailbox and back without stopping to catch her breath. She also endorses chest pain that she describes as a sharp discomfort, localized to the substernal area, always present, never resolves, worse with deep breathing as well as motion of the upper extremities and torso and without radiation. Her telemetry shows well-controlled atrial fibrillation. Of note, she was admitted to this facility 10/23/2021 10/29/2019 for rapid atrial fibrillation heart failure. During that hospitalization she underwent transesophageal echocardiography on 10/28/2019 however was found to have left atrial thrombus therefore cardioversion was not performed. Her outpatient sba underwriter is Dr. Castro. Physical exam on 04/22/2020: GENERAL: Pleasant and conversational. Oriented x3 with normal mood. Not in acute distress. Well groomed and well developed. HEENT: Normocephalic, atraumatic. Pupils equal. Sclerae anicteric. Oropharynx moist. NECK: No JVD. No carotid bruits. LUNGS: Clear to auscultation bilaterally. Normal respiratory effort without the use of accessory muscles or intercostal retractions. CARDIOVASCULAR: Irregularly irregular rate and rhythm, normal S1 and S2 without murmurs, rubs, or gallops. PMI not displaced. ABDOMEN: Protuberant. No tenderness to palpation. No bruit. Difficult to assess for organomegaly. No abdominal aorta bruit noted. EXTREMITIES: 1-2+ pitting edema bilaterally, no cyanosis, no clubbing. +2 pulses femoral and pedal pulses bilaterally. SKIN: No lesions or rashes. MUSCULOSKELETAL: Tenderness to palpation of the sternal area which reproduces her index chest pain. NEUROLOGIC: Nonfocal. No gross sensory or motor deficits bilateral upper or lower extremities. Cardiac studies: Echocardiogram on 10/24/2019: -EF 40 to 45%. -Trace MR, trace TR. -Minimal pericardial effusion. Past Medical History Cardiac Medical History: Reports: Atrial Fibrillation, Hyperlipidema, Hypertension Pulmonary Medical History: Reports: Asthma Denies: Tuberculosis Endocrine Medical History: Reports: Diabetes Mellitus Type 1 Psychiatric Medical History: Reports: Depression Past Surgical History Past Surgical History: Reports: Other Social History Lives with: Spouse/Significant other Smoking Status: Former Smoker Electronic Cigarette use?: No Last Time Smoked: 2009 Frequency of Alcohol Use: None Hx Recreational Drug Use: No Drugs: None Hx Prescription Drug Abuse: No - Advance Directive Resuscitation Status: Full Code Family History Family History: Hypertension Parental Family History Reviewed: Yes Children Family History Reviewed: Yes Sibling(s) Family History Reviewed.: Yes Medication/Allergy Home Medications: Insulin Aspart [Novolog Flexpen] 0 unit SQ .PERSLIDINGSCALE 07/18/13 Acetaminophen [Acetaminophen Extra Strength] 500 mg PO DAILYP PRN 10/24/19 Atorvastatin Calcium [Lipitor 40 mg Tablet] 40 mg PO QHS 10/24/19 Bromocriptine Mesylate 10 mg PO QAM 10/24/19 Icosapent Ethyl [Vascepa] 1 gm PO BIDBS 10/24/19 Insulin Degludec [Tresiba Flextouch U-100] 20 unit SQ QHS 10/24/19 Apixaban [Eliquis 5 mg Tablet] 5 mg PO Q12 04/21/20 Furosemide [Lasix 40 mg Tablet] 40 mg PO QAM 04/21/20 Lisinopril [Zestril] 10 mg PO DAILY 04/21/20 Metoprolol Succinate [Toprol Xl 50 mg Tab.sr] 50 mg PO DAILY 04/21/20 Allergies/Adverse Reactions: No Known Allergies Allergy (Unverified 10/23/19 13:27) Physical Exam Vital Signs: Temp Pulse Resp BP Pulse Ox 97.9 F 81 12 124/78 97 04/22/20 03:48 04/22/20 03:48 04/22/20 03:48 04/22/20 03:48 04/22/20 03:48 Intake & Output 04/20/20 04/21/20 04/22/20 06:59 06:59 06:59 Intake Total 1000 Balance 1000 Weight 68 kg Results Laboratory Results: 04/22/20 04:34 04/22/20 04:34 04/21/20 04/21/20 04/21/20 13:18 13:18 13:18 WBC 6.5 RBC 4.15 Hgb 12.0 Hct 37.0 MCV 89 MCH 28.9 MCHC 32.5 RDW 18.1 H Plt Count 298 Seg Neutrophils % 69.7 Sodium 139.3 Potassium 5.1 H Chloride 108 H Carbon Dioxide 23 Anion Gap 8 BUN 13 Creatinine 0.42 L Est GFR ( Amer) > 60 Glucose 225 H Lactic Acid Calcium 9.3 Magnesium 1.9 Total Bilirubin 0.8 AST 62 H Alkaline Phosphatase 77 Total Protein 7.0 Albumin 3.7 Triglycerides Cholesterol LDL Cholesterol Direct VLDL Cholesterol HDL Cholesterol 04/21/20 04/22/20 04/22/20 14:12 04:34 04:34 WBC 6.0 RBC 3.79 Hgb 10.9 L Hct 33.4 L MCV 88 MCH 28.9 MCHC 32.8 RDW 17.5 H Plt Count 242 Seg Neutrophils % Sodium 141.0 Potassium 3.7 D Chloride 108 H Carbon Dioxide 27 Anion Gap 6 BUN 11 Creatinine 0.58 Est GFR ( Amer) > 60 Glucose 93 Lactic Acid 0.8 Calcium 8.6 Magnesium 1.8 Total Bilirubin 0.6 AST 44 H Alkaline Phosphatase 69 Total Protein 6.5 Albumin 3.3 L Triglycerides 52 Cholesterol 142.52 LDL Cholesterol Direct 88 VLDL Cholesterol 10.0 HDL Cholesterol 45 04/21/20 04/21/20 04/21/20 13:18 13:18 13:18 Creatine Kinase 106 CK-MB (CK-2) 1.38 Troponin I 0.014 NT-Pro-B Natriuret Pep 2890 H 04/21/20 19:45 Creatine Kinase CK-MB (CK-2) Troponin I < 0.012 NT-Pro-B Natriuret Pep Impressions: Chest X-Ray 04/21/20 00:00 IMPRESSION: Cardiomegaly and vascular congestion new from prior study. 04/22/20 04:34 04/22/20 04:34 MCV 88 fl (80-97) 04/22/20 04:34 MCH 28.9 pg (27.0-33.4) 04/22/20 04:34 MCHC 32.8 g/dL (32.0-36.0) 04/22/20 04:34 RDW 17.5 % (11.5-14.0) H 04/22/20 04:34 Seg Neutrophils % 69.7 % (42-78) 04/21/20 13:18 Chloride 108 mmol/L (98-107) H 04/22/20 04:34 Carbon Dioxide 27 mmol/L (22-30) 04/22/20 04:34 Anion Gap 6 (5-19) 04/22/20 04:34 Est GFR ( Amer) > 60 (>60) 04/22/20 04:34 Glucose 93 mg/dL (75-110) 04/22/20 04:34 Lactic Acid 0.8 mmol/L (0.7-2.1) 04/21/20 14:12 Calcium 8.6 mg/dL (8.4-10.2) 04/22/20 04:34 Magnesium 1.8 mg/dL (1.6-2.3) 04/22/20 04:34 Total Bilirubin 0.6 mg/dL (0.2-1.3) 04/22/20 04:34 AST 44 U/L (14-36) H 04/22/20 04:34 Alkaline Phosphatase 69 U/L (38-126) 04/22/20 04:34 Total Protein 6.5 g/dL (6.3-8.2) 04/22/20 04:34 Albumin 3.3 g/dL (3.5-5.0) L 04/22/20 04:34 Triglycerides 52 mg/dL (<150) 04/22/20 04:34 Cholesterol 142.52 mg/dL (0-200) 04/22/20 04:34 LDL Cholesterol Direct 88 mg/dL (<100) 04/22/20 04:34 VLDL Cholesterol 10.0 mg/dL (10-31) 04/22/20 04:34 HDL Cholesterol 45 mg/dL (>40) 04/22/20 04:34 04/21/20 04/21/20 04/21/20 13:18 13:18 13:18 Creatine Kinase 106 CK-MB (CK-2) 1.38 Troponin I 0.014 NT-Pro-B Natriuret Pep 2890 H 04/21/20 19:45 Creatine Kinase CK-MB (CK-2) Troponin I < 0.012 NT-Pro-B Natriuret Pep Current Medication List Generic Name Dose Route Start Last Admin Trade Name Juan Antonioq PRN Reason Stop Dose Admin Apixaban 5 mg 04/21/20 18:00 04/21/20 17:51 Eliquis 5 Mg Tablet PO 05/21/20 17:59 5 mg BID CATHERINE Administration Dextrose 12.5 gm 04/21/20 16:39 Dextrose Inj 50% Syringe (25 Gm/50 Ml) IV 05/21/20 16:38 PRN PRN FOR BG 50-69 IN ALERT PATIENT Protocol Dextrose 25 gm 04/21/20 16:39 Dextrose Inj 50% Syringe (25 Gm/50 Ml) IV 05/21/20 16:38 PRN PRN PER PROTOCOL Protocol Furosemide 40 mg 04/22/20 10:00 Lasix Inj/Pf 40 Mg/4 Ml Sdv IV 05/22/20 09:59 BID CATHERINE Glucagon 1 mg 04/21/20 16:39 Glucagen Inj 1 Mg Vial IM 05/21/20 16:38 PRN PRN Evaluate for BG < 70 Protocol Glucose 15 gm 04/21/20 16:39 Glutose 40% Gel 15 Gm Tube PO 05/21/20 16:38 PRN PRN FOR BG 50-69 IN ALERT PATIENT Protocol Glucose 30 gm 04/21/20 16:39 Glutose 40% Gel 15 Gm Tube PO 05/21/20 16:38 PRN PRN FOR BG < 50 IN ALERT PATIENT Protocol Insulin Glargine 20 unit 04/22/20 10:00 Lantus Insulin 100 Unit/1 Ml 10 Ml SUBCUT 05/22/20 09:59 DAILY CATHERINE Insulin Human Lispro 0 - 12 unit 04/21/20 22:00 04/21/20 22:12 Humalog Insulin 100 Unit/1 Ml 3 Ml Vial SUBCUT 05/21/20 21:59 6 unit ACHS CATHERINE Administration Protocol Metoprolol Succinate 50 mg 04/22/20 10:00 Toprol Xl 50 Mg Tab.Sr PO 05/22/20 09:59 Q12 CATHERINE Metoprolol Tartrate 5 mg 04/21/20 16:22 Lopressor Inj/Pf 5 Mg/5 Ml Sdv IV 05/21/20 16:21 Q6HP PRN GIVE FOR HR >120 Sodium Chloride 2.5 ml 04/21/20 22:00 04/22/20 06:16 Saline Flush 2.5 Ml Monoject Prefil Syrin IV 05/21/20 21:59 2.5 ml Q8 CATHERINE Administration Discontinued Medications Generic Name Dose Route Start Last Admin Trade Name Freq PRN Reason Stop Dose Admin Digoxin 0.25 mg 04/21/20 18:00 04/22/20 06:14 Lanoxin Inj 0.5 Mg/2 Ml Ampule IV 04/22/20 06:01 0.25 mg Q6 CATHERINE Administration Furosemide 40 mg 04/21/20 17:00 04/21/20 17:30 Lasix Inj/Pf 40 Mg/4 Ml Sdv IV 04/21/20 17:01 40 mg RIANA ONE Administration Sodium Chloride 1,000 mls @ 0 mls/hr 04/21/20 13:54 04/21/20 15:15 Nacl 0.9% 1000 Ml Iv Soln IV 04/21/20 13:55 Infused BOLUS ONE Infusion Wide Open Metoprolol Succinate 50 mg 04/21/20 17:30 04/21/20 17:51 Toprol Xl 50 Mg Tab.Sr PO 04/21/20 17:31 50 mg NOW ONE Administration Assessment & Plan - Diagnosis (1) Acute on chronic systolic (congestive) heart failure Plan: The patient states that she had been compliant with both low-sodium diet and medications. It is possible that her exacerbation secondary to cardiac dyssynchrony from her atrial fibrillation or she may be having asymptomatic episodes of rapid atrial fibrillation. She also has cardiac risk factors for coronary artery disease which may be also contributing to both her A. fib and heart failure episodes. She is fluid overloaded currently. Recommendations: -Continue diuresis with Lasix 40 mg IV twice daily. -Start Entresto 24 mg / 26 mg twice daily. -Restrict fluid intake to 1500 cc daily. -Low sodium diet, less than 1500 mg daily. -Strict intake and output. -Daily weights. -Daily BMP and magnesium. -Replace electrolytes as needed. -Noninvasive ischemic assessment in the outpatient setting. (2) Persistent atrial fibrillation with rapid ventricular response Plan: She is anticoagulated with Eliquis and with a controlled heart rate currently. Recommendations: -Continue with current medical management. -Follow-up with Dr. Castro when discharged. (3) Dyspnea on exertion Is this a current diagnosis for this admission?: Yes Plan: Differential diagnoses include deconditioning, uncontrolled atrial fibrillation during physical activities and cardiac ischemia among others. There is no gross evidence of any pulmonary disease at this point. Recommendations: -Noninvasive ischemic assessment in the outpatient setting. (4) Chest pain Qualifiers: Chest pain type: unspecified Qualified Code(s): R07.9 - Chest pain, unspec ified Is this a current diagnosis for this admission?: Yes Plan: Musculoskeletal in etiology as demonstrated by its characteristics and physical exam. No need for further cardiac work-up at this point.
--- NOTE | 2020-04-22 09:37 | PDOC PROGRESS REPORT ---
Subjective Progress Note for:: 04/22/20 Subjective:: ss: URSZLUA VANEGAS is a 50 year old female with history of CHF, persistent atrial fibrillation, diabetes, who presents to the hospital for evaluation of progressive shortness of breath at rest and on exertion. Her symptoms started 1 week ago. Also associated with a dry cough. Denies any significant sputum production. She admits to orthopnea and some episodes of PND. Denies any leg swelling but admits to increased abdominal girth. Exercise tolerance is also depreciated. Regarding her chest pain, she describes this as substernal which started about 2 days ago and occurs every now and then. Describes it being worse with exertion but does not improve with rest. Denies any nausea or vomiting. Denies any history of heart attacks. Currently chest pain is mild and feels just like a tightness at this point. She denies any fevers or chills or sick COVID-19 exposures. 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 Does not know all her medications to verify if she has been taking all of them but does states compliance. Admitted in September 2019 for similar reasons and ended up being discharged with plan to follow-up with Dr. Castro in outpatient. 04/22/[id number]-[id number]-old female with history of congestive heart failure with EF of 40 to 45%, chronic persistent atrial fibrillation, type 2 diabetes mellitus admitted for increasing shortness of breath and orthopnea. Also complains of chest pains as per the cardiology it is musculoskeletal in nature. Cardiology consult was done recommendation is to start on Entresto 24/26 mg twice daily and fluid restriction 1500 cc/day. Patient is comfortably in the bed denies any problems requesting hOt coffee. Reason For Visit: HEART FAILURE,AFIB RVE Physical Exam Vital Signs: Temp Pulse Resp BP Pulse Ox 97.8 F 76 20 119/70 99 04/22/20 09:12 04/22/20 09:12 04/22/20 09:12 04/22/20 09:12 04/22/20 09:12 Intake & Output 04/21/20 04/22/20 04/23/20 06:59 06:59 06:59 Intake Total 1000 Balance 1000 Weight 68 kg General appearance: PRESENT: no acute distress, cooperative, well-developed Head exam: PRESENT: atraumatic Eye exam: PRESENT: conjunctiva pink, PERRLA Mouth exam: PRESENT: moist, tongue midline Neck exam: ABSENT: carotid bruit, JVD, lymphadenopathy, thyromegaly Respiratory exam: PRESENT: decreased breath sounds Cardiovascular exam: PRESENT: irregular rhythm, tachycardia Vascular exam: PRESENT: normal capillary refill GI/Abdominal exam: PRESENT: normal bowel sounds, soft. ABSENT: distended, guarding, mass, organolmegaly, rebound, tenderness Rectal exam: PRESENT: deferred Extremities exam: PRESENT: full ROM. ABSENT: calf tenderness, clubbing, pedal edema Neurological exam: PRESENT: alert, awake, oriented to person, oriented to place, oriented to time, oriented to situation, CN II-XII grossly intact. ABSENT: motor sensory deficit Psychiatric exam: PRESENT: appropriate affect, normal mood. ABSENT: homicidal ideation, suicidal ideation Results Laboratory Results: 04/22/20 04:34 04/22/20 04:34 04/21/20 04/21/20 04/21/20 13:18 13:18 13:18 WBC 6.5 RBC 4.15 Hgb 12.0 Hct 37.0 MCV 89 MCH 28.9 MCHC 32.5 RDW 18.1 H Plt Count 298 Seg Neutrophils % 69.7 Sodium 139.3 Potassium 5.1 H Chloride 108 H Carbon Dioxide 23 Anion Gap 8 BUN 13 Creatinine 0.42 L Est GFR ( Amer) > 60 Glucose 225 H Lactic Acid Calcium 9.3 Magnesium 1.9 Total Bilirubin 0.8 AST 62 H Alkaline Phosphatase 77 Total Protein 7.0 Albumin 3.7 Triglycerides Cholesterol LDL Cholesterol Direct VLDL Cholesterol HDL Cholesterol 04/21/20 04/22/20 04/22/20 14:12 04:34 04:34 WBC 6.0 RBC 3.79 Hgb 10.9 L Hct 33.4 L MCV 88 MCH 28.9 MCHC 32.8 RDW 17.5 H Plt Count 242 Seg Neutrophils % Sodium 141.0 Potassium 3.7 D Chloride 108 H Carbon Dioxide 27 Anion Gap 6 BUN 11 Creatinine 0.58 Est GFR ( Amer) > 60 Glucose 93 Lactic Acid 0.8 Calcium 8.6 Magnesium 1.8 Total Bilirubin 0.6 AST 44 H Alkaline Phosphatase 69 Total Protein 6.5 Albumin 3.3 L Triglycerides 52 Cholesterol 142.52 LDL Cholesterol Direct 88 VLDL Cholesterol 10.0 HDL Cholesterol 45 04/21/20 04/21/20 04/21/20 13:18 13:18 13:18 Creatine Kinase 106 CK-MB (CK-2) 1.38 Troponin I 0.014 NT-Pro-B Natriuret Pep 2890 H 04/21/20 19:45 Creatine Kinase CK-MB (CK-2) Troponin I < 0.012 NT-Pro-B Natriuret Pep Impressions: Chest X-Ray 04/21/20 00:00 IMPRESSION: Cardiomegaly and vascular congestion new from prior study. Assessment and Plan - Diagnosis (1) Acute on chronic systolic (congestive) heart failure Is this a current diagnosis for this admission?: Yes Plan: Started on diuresis with IV Lasix 40 mg twice daily. 1500 cc fluid restriction, daily weights, monitor on telemetry. Strict I's and O's. Monitor and replete electrolytes accordingly. We will resume lisinopril once blood pressure improves. Echocardiogram in September 2019 shows EF of 40 to 45% Cardiology consulted 04/22/20-patient is receiving Lasix 40 mg IV twice a day. On fluid restriction 1500 cc/day. As per cardiology recommendations to start on Entresto 24/26 mg p.o. twice a day. Latest echocardiogram shows EF of 40 to 45%. (2) Persistent atrial fibrillation with rapid ventricular response Is this a current diagnosis for this admission?: Yes Plan: On last admission, patient was unable to get cardioverted due to atrial appendage thrombus noted on ANDREI. I will resume patient's Toprol-XL IV Lopressor as needed We will give patient IV digoxin given her soft blood pressures to help control heart rate Telemetry monitoring. Continue Eliquis 04/22/2020-patient has history of chronic persistent atrial fibrillation on Eliquis at home. Heart rate this morning is 76. Well controlled. Patient is p resently on metoprolol 50 mg every 12 hours, rifaximin 5 mg p.o. twice daily. Received 1 dose of digoxin yesterday. (3) Dyspnea on exertion Is this a current diagnosis for this admission?: Yes Plan: 04/22/2020-patient came with complaints of shortness of breath with exertion denies any complaints at this time. Pulse ox is 97% room air. It may be secondary to A. fib with RVR and CHF exacerbation. (4) Hypotension Qualifiers: Hypotension type: other hypotension type Qualified Code(s): I95.89 - Other hypotension Is this a current diagnosis for this admission?: Yes Plan: May be secondary to heart failure or rapid A. fib. Did receive a liter bolus in ER will hold off on further fluids. BP is improved right now. Will monitor closely. Treatment of A. fib as above. 04/22/2020-blood pressure just now is 127/78. Hypotension resolved. She received a bolus of IV fluids in the ER. Not on IV fluids at this time. (5) Atrial thrombus Is this a current diagnosis for this admission?: No Plan: History of atrial appendage thrombus noted on ANDREI 5 months ago. Continue Eliquis. (6) Diabetes mellitus type 1 Is this a current diagnosis for this admission?: No Plan: Accu-Cheks, sliding scale, Lantus 04/22/2020-latest blood sugar is 118. To continue insulin sliding scale before meals and at bedtime and Lantus 20 units subcu daily. Diet exercise weight loss lifestyle modifications discussed with the patient and to check for hemoglobin A1c. (7) Acromegaly Is this a current diagnosis for this admission?: No - Time Anticipated Discharge Disposition: Home, Self Care Anticipated Discharge Timeframe: within 48 hours
[2020-04-22] MEDS ORDERED: (PENDING PHARMACY ID) (Acetaminophen [Acetaminophen Extra Strength] 500 MG) PO PRN (09:38)
[2020-04-22] MEDS ORDERED: FUROSEMIDE INJ/PF 40 MG/4 ML SDV IV SCH (10:00)
[2020-04-22] MEDS ORDERED: METOPROLOL SUCCINATE 50 MG TAB.SR.24H PO SCH (10:00)
--- NOTE | 2020-04-22 10:14 | EKG REPORT ---
SEVERITY:- ABNORMAL ECG - ATRIAL FIBRILLATION NONSPECIFIC REPOL ABNORMALITY, DIFFUSE LEADS : Confirmed by: Ijeoma Villegas MD 22-Apr-2020 10:14:27
[2020-04-22] MEDS: METOPROLOL SUCCINATE 50 MG TAB.SR.24H PO SCH (10:28)
[2020-04-22] MEDS: BROMOCRIPTINE MESYLATE 2.5 MG TABLET PO SCH (11:56)
[2020-04-22] MEDS: SACUBITRIL/VALSARTAN 24 MG/26 MG TABLET PO SCH ×2 (11:56→17:19)
[2020-04-22] MEDS ORDERED: INSULIN GLARGINE,HUM.REC.ANLOG 1,000 UNIT/10 ML VIAL SUBCUT ONE (12:00)
[2020-04-22] MEDS: INSULIN GLARGINE,HUM.REC.ANLOG 1,000 UNIT/10 ML VIAL SUBCUT SCH (13:06)
[2020-04-22] MEDS: ACETAMINOPHEN 325 MG TABLET PO PRN (14:01)
[2020-04-22] MEDS ORDERED: ICOSAPENT ETHYL 1 GM PO SCH (17:00)
[2020-04-22] MEDS: ATORVASTATIN CALCIUM 40 MG TABLET PO SCH (21:23)
[2020-04-23] MEDS: DEXTROSE 50%-WATER 25 GM/50 ML DISP.SYRIN IV PRN (03:38)
[2020-04-23 05:19] LABS: ABSOLUTE BASOPHILS # (AUTO) 0.1 10^3/uL (0.0-0.2); ABSOLUTE EOSINOPHILS # (AUTO) 0.1 10^3/uL (0.0-0.6); ABSOLUTE LYMPHOCYTES (AUTO) 1.6 10^3/uL (0.5-4.7); ABSOLUTE MONOCYTES (AUTO) 0.6 10^3/uL (0.1-1.4); BASOPHILS % (AUTO) 1.2 % (0-2); EOSINOPHILS % (AUTO) 2.8 % (0-6); HEMATOCRIT 36.3 % (36.0-47.0); MEAN CORPUSCULAR HEMOGLOBIN 29.1 pg (27.0-33.4); MEAN CORPUSCULAR HGB CONC 33.2 g/dL (32.0-36.0); MEAN CORPUSCULAR VOLUME 88 fl (80-97); MONOCYTES % (AUTO) 10.7 % (3-13); PLATELET COUNT 259 10^3/uL (150-450); RED BLOOD COUNT 4.13 10^6/uL (3.72-5.28); RED CELL DISTRIBUTION WIDTH 17.4 % (11.5-14.0); SEGMENTED NEUTROPHILS % (AUTO) 56.3 % (42-78); TOTAL CELLS COUNTED % (AUTO) 100 %; WHITE BLOOD COUNT 5.4 10^3/uL (4.0-10.5)
[2020-04-23 05:39] LABS: ALBUMIN 3.2 g/dL (3.5-5.0); ALKALINE PHOSPHATASE 71 U/L (38-126); ANION GAP 8 (5-19); ASPARTATE AMINO TRANSFERASE 43 U/L (14-36); BILIRUBIN,DIRECT 0.3 mg/dL (0.0-0.4); BILIRUBIN,TOTAL 0.7 mg/dL (0.2-1.3); BLOOD UREA NITROGEN 13 mg/dL (7-20); CALCIUM 8.9 mg/dL (8.4-10.2); CARBON DIOXIDE 27 mmol/L (22-30); CHLORIDE 104 mmol/L (98-107); GLUCOSE 154 mg/dL (75-110); POTASSIUM 4.5 mmol/L (3.6-5.0); TOTAL PROTEIN 6.2 g/dL (6.3-8.2)
[2020-04-23] MEDS ORDERED: BROMOCRIPTINE MESYLATE 10 MG PO SCH (08:00)
[2020-04-23] MEDS: INSULIN LISPRO 100 UNIT/ML 3 ML VIAL SUBCUT SCH ×4 (08:18→22:01)
--- NOTE | 2020-04-23 08:36 | PDOC PROGRESS REPORT ---
Subjective Progress Note for:: 04/23/20 Subjective:: URSZULA VANEGAS is a 50 year old female with history of heart failure with reduced ejection fraction (EF 40 to 45% in September 2019), persistent atrial fibrillation, type 2 diabetes, who is consulted to our service for further evaluation and treatment of rapid atrial fibrillation and heart failure. The patient presented to our emergency room yesterday complaining of progressive shortness of breath at rest, dyspnea on exertion, orthopnea and PND for at least 1 to 2 weeks. The patient states that she is now so short of breath that she cannot go to her mailbox and back without stopping to catch her breath. She also endorses chest pain that she describes as a sharp discomfort, localized to the substernal area, always present, never resolves, worse with deep breathing as well as motion of the upper extremities and torso and without radiation. Her telemetry shows well-controlled atrial fibrillation. Of note, she was admitted to this facility 10/23/2021 10/29/2019 for rapid atrial fibrillation heart failure. During that hospitalization she underwent transesophageal echocardiography on 10/28/2019 however was found to have left atrial thrombus therefore cardioversion was not performed. Her outpatient forestry hunter is Dr. Castro. 04/23/20: The patient had an uneventful night. Her BP had been on the low side and the nursing staff held her toprol. She is - 1.39 L in her fluid balance and she was transitioned to lasix 40mg po qd after only getting one dose of IV lasix. She is tolerating Entresto. Her telemetry shows atrial fibrillation with episodes of rapid ventricular response likely secondary to not receiving her Toprol dose as scheduled. Physical exam on 04/23/2020: GENERAL: Pleasant and conversational. Oriented x3 with normal mood. Not in acute distress. Well groomed and well developed. HEENT: Normocephalic, atraumatic. Pupils equal. Sclerae anicteric. Oropharynx moist. NECK: No JVD. No carotid bruits. LUNGS: Clear to auscultation bilaterally. Normal respiratory effort without the use of accessory muscles or intercostal retractions. CARDIOVASCULAR: Irregularly irregular rate and rhythm, normal S1 and S2 without murmurs, rubs, or gallops. PMI not displaced. ABDOMEN: Protuberant. No tenderness to palpation. No bruit. Difficult to assess for organomegaly. No abdominal aorta bruit noted. EXTREMITIES: No pitting edema bilaterally, no cyanosis, no clubbing. +2 pulses femoral and pedal pulses bilaterally. SKIN: No lesions or rashes. MUSCULOSKELETAL: Tenderness to palpation of the sternal area which reproduces her index chest pain. NEUROLOGIC: Nonfocal. No gross sensory or motor deficits bilateral upper or lower extremities. Cardiac studies: Echocardiogram on 10/24/2019: -EF 40 to 45%. -Trace MR, trace TR. -Minimal pericardial effusion. Reason For Visit: HEART FAILURE,AFIB RVE Physical Exam Vital Signs: Temp Pulse Resp BP Pulse Ox 97.9 F 83 16 97/65 L 95 04/23/20 03:15 04/23/20 03:15 04/23/20 03:15 04/23/20 03:15 04/23/20 03:15 Intake & Output 04/21/20 04/22/20 04/23/20 06:59 06:59 06:59 Intake Total 1000 960 Output Total 1950 Balance 1000 -990 Weight 68 kg Results Laboratory Results: 04/23/20 04:33 04/23/20 04:33 04/23/20 04/23/20 04:33 04:33 WBC 5.4 RBC 4.13 Hgb 12.0 Hct 36.3 MCV 88 MCH 29.1 MCHC 33.2 RDW 17.4 H Plt Count 259 Seg Neutrophils % 56.3 Sodium 138.6 Potassium 4.5 Chloride 104 Carbon Dioxide 27 Anion Gap 8 BUN 13 Creatinine 0.60 Est GFR ( Amer) > 60 Glucose 154 H Calcium 8.9 Magnesium 1.8 Total Bilirubin 0.7 AST 43 H Alkaline Phosphatase 71 Total Protein 6.2 L Albumin 3.2 L 04/21/20 04/21/20 04/21/20 13:18 13:18 13:18 Creatine Kinase 106 CK-MB (CK-2) 1.38 Troponin I 0.014 NT-Pro-B Natriuret Pep 2890 H 04/21/20 19:45 Creatine Kinase CK-MB (CK-2) Troponin I < 0.012 NT-Pro-B Natriuret Pep Impressions: Chest X-Ray 04/21/20 00:00 IMPRESSION: Cardiomegaly and vascular congestion new from prior study. 04/23/20 04:33 04/23/20 04:33 MCV 88 fl (80-97) 04/23/20 04:33 MCH 29.1 pg (27.0-33.4) 04/23/20 04:33 MCHC 33.2 g/dL (32.0-36.0) 04/23/20 04:33 RDW 17.4 % (11.5-14.0) H 04/23/20 04:33 Seg Neutrophils % 56.3 % (42-78) 04/23/20 04:33 Chloride 104 mmol/L (98-107) 04/23/20 04:33 Carbon Dioxide 27 mmol/L (22-30) 04/23/20 04:33 Anion Gap 8 (5-19) 04/23/20 04:33 Est GFR ( Amer) > 60 (>60) 04/23/20 04:33 Glucose 154 mg/dL (75-110) H 04/23/20 04:33 Lactic Acid 0.8 mmol/L (0.7-2.1) 04/21/20 14:12 Calcium 8.9 mg/dL (8.4-10.2) 04/23/20 04:33 Magnesium 1.8 mg/dL (1.6-2.3) 04/23/20 04:33 Total Bilirubin 0.7 mg/dL (0.2-1.3) 04/23/20 04:33 AST 43 U/L (14-36) H 04/23/20 04:33 Alkaline Phosphatase 71 U/L (38-126) 04/23/20 04:33 Total Protein 6.2 g/dL (6.3-8.2) L 04/23/20 04:33 Albumin 3.2 g/dL (3.5-5.0) L 04/23/20 04:33 Triglycerides 52 mg/dL (<150) 04/22/20 04:34 Cholesterol 142.52 mg/dL (0-200) 04/22/20 04:34 LDL Cholesterol Direct 88 mg/dL (<100) 04/22/20 04:34 VLDL Cholesterol 10.0 mg/dL (10-31) 04/22/20 04:34 HDL Cholesterol 45 mg/dL (>40) 04/22/20 04:34 04/21/20 04/21/20 04/21/20 13:18 13:18 13:18 Creatine Kinase 106 CK-MB (CK-2) 1.38 Troponin I 0.014 NT-Pro-B Natriuret Pep 2890 H 04/21/20 19:45 Creatine Kinase CK-MB (CK-2) Troponin I < 0.012 NT-Pro-B Natriuret Pep Current Medication List Generic Name Dose Route Start Last Admin Trade Name Freq PRN Reason Stop Dose Admin Acetaminophen 500 mg 04/22/20 09:49 04/22/20 14:01 Tylenol 325 Mg Tablet PO 05/22/20 09:48 500 mg DAILYP PRN Administration FOR MIGRAINE Apixaban 5 mg 04/21/20 18:00 04/22/20 17:20 Eliquis 5 Mg Tablet PO 05/21/20 17:59 5 mg BID CATHERINE Administration Atorvastatin Calcium 40 mg 04/22/20 22:00 04/22/20 21:23 Lipitor 40 Mg Tablet PO 05/22/20 21:59 40 mg QHS CATHERINE Administration Bromocriptine Mesylate 10 mg 04/22/20 10:00 04/22/20 11:56 Parlodel 2.5 Mg Tablet PO 05/22/20 09:59 10 mg DAILY CATHERINE Administration Dextrose 12.5 gm 04/21/20 16:39 Dextrose Inj 50% Syringe (25 Gm/50 Ml) IV 05/21/20 16:38 PRN PRN FOR BG 50-69 IN ALERT PATIENT Protocol Dextrose 25 gm 04/21/20 16:39 04/23/20 03:38 Dextrose Inj 50% Syringe (25 Gm/50 Ml) IV 05/21/20 16:38 25 gm PRN PRN Administration PER PROTOCOL Protocol Furosemide 40 mg 04/23/20 08:00 Lasix 40 Mg Tablet PO 05/23/20 07:59 QAM CATHERINE Glucagon 1 mg 04/21/20 16:39 Glucagen Inj 1 Mg Vial IM 05/21/20 16:38 PRN PRN Evaluate for BG < 70 Protocol Glucose 15 gm 04/21/20 16:39 Glutose 40% Gel 15 Gm Tube PO 05/21/20 16:38 PRN PRN FOR BG 50-69 IN ALERT PATIENT Protocol Glucose 30 gm 04/21/20 16:39 Glutose 40% Gel 15 Gm Tube PO 05/21/20 16:38 PRN PRN FOR BG < 50 IN ALERT PATIENT Protocol Insulin Glargine 20 unit 04/22/20 10:00 04/22/20 13:06 Lantus Insulin 100 Unit/1 Ml 10 Ml SUBCUT 05/22/20 09:59 20 unit DAILY CATHERINE Administration Insulin Human Lispro 0 - 12 unit 04/21/20 22:00 04/22/20 21:23 Humalog Insulin 100 Unit/1 Ml 3 Ml Vial SUBCUT 05/21/20 21:59 Not Given ACHS CATHERINE Protocol Metoprolol Succinate 50 mg 04/22/20 10:00 04/22/20 10:28 Toprol Xl 50 Mg Tab.Sr PO 05/22/20 09:59 Not Given DAILY CATHERINE Metoprolol Tartrate 5 mg 04/21/20 16:22 Lopressor Inj/Pf 5 Mg/5 Ml Sdv IV 05/21/20 16:21 Q6HP PRN GIVE FOR HR >120 Patient Own Medication 1 gm 04/22/20 17:00 Icosapent Ethyl [Vascepa] PO 05/22/20 16:59 BIDBS CATHERINE Sacubitril/Valsartan 1 tab 04/22/20 10:00 04/22/20 17:19 Entresto 24 Mg/26 Mg Tablet PO 05/22/20 09:59 1 tab BID CATHERINE Administration Sodium Chloride 2.5 ml 04/21/20 22:00 04/23/20 05:23 Saline Flush 2.5 Ml Monoject Prefil Syrin IV 05/21/20 21:59 Not Given Q8 CATHERINE Discontinued Medications Generic Name Dose Route Start Last Admin Trade Name Freq PRN Reason Stop Dose Admin Digoxin 0.25 mg 04/21/20 18:00 04/22/20 06:14 Lanoxin Inj 0.5 Mg/2 Ml Ampule IV 04/22/20 06:01 0.25 mg Q6 CATHERINE Administration Furosemide 40 mg 04/22/20 10:00 04/22/20 09:17 Lasix Inj/Pf 40 Mg/4 Ml Sdv IV 05/22/20 09:59 40 mg BID CATHERINE Administration Furosemide 40 mg 04/21/20 17:00 04/21/20 17:30 Lasix Inj/Pf 40 Mg/4 Ml Sdv IV 04/21/20 17:01 40 mg RIANA ONE Administration Sodium Chloride 1,000 mls @ 0 mls/hr 04/21/20 13:54 04/21/20 15:15 Nacl 0.9% 1000 Ml Iv Soln IV 04/21/20 13:55 Infused BOLUS ONE Infusion Wide Open Insulin Glargine 20 unit 04/22/20 12:00 04/22/20 13:05 Lantus Insulin 100 Unit/1 Ml 10 Ml SUBCUT 04/22/20 12:01 Not Given NOW ONE Metoprolol Succinate 50 mg 04/22/20 10:00 04/22/20 09:16 Toprol Xl 50 Mg Tab.Sr PO 05/22/20 09:59 50 mg Q12 CATHERINE Administration Metoprolol Succinate 50 mg 04/21/20 17:30 04/21/20 17:51 Toprol Xl 50 Mg Tab.Sr PO 04/21/20 17:31 50 mg NOW ONE Administration Assessment & Plan - Diagnosis (1) Acute on chronic systolic (congestive) heart failure Is this a current diagnosis for this admission?: Yes Plan: The patient states that she had been compliant with both low-sodium diet and medications. It is possible that her exacerbation secondary to cardiac dyssynchrony from her atrial fibrillation or she may be having asymptomatic episodes of rapid atrial fibrillation or even cardiac ischemia given her cardiac risk factors for coronary artery disease. She feels 100% better and with now lower extremity edema after diuresing her 1.39 L. Recommendations: -Continue with current medical management in the outpatient setting to include potassium supplementation. -The patient is optimized from the cardiovascular standpoint therefore we will signed off the case. -The patient was instructed to call Dr. Castro's office to schedule an appoint ment. I notify Dr. Castro about this patient's discharge and he stated he will arrange for follow-up visit. -Continue to restrict fluid intake to 1500 cc daily in the outpatient setting. -Low sodium diet, less than 1500 mg daily in the outpatient setting. -Daily weights and call Dr. Castro's office if weight gain of 3 pounds overnight or 5 pounds in 1 week. -Noninvasive ischemic assessment in the outpatient setting with Dr. Castro's office. (2) Persistent atrial fibrillation with rapid ventricular response Is this a current diagnosis for this admission?: Yes Plan: She is anticoagulated with Eliquis. This morning she was noted to have some episodes of RVR as the patient did not receive her scheduled dose of Toprol. Recommendations: -Continue with current medical management. -Restart Toprol as prescribed. -Follow-up with Dr. Castro when discharged. (3) Dyspnea on exertion Is this a current diagnosis for this admission?: Yes Plan: Differential diagnoses include deconditioning, uncontrolled atrial fibrillation during physical activities and cardiac ischemia among others. There is no gross evidence of any pulmonary disease at this point. Recommendations: -Noninvasive ischemic assessment in the outpatient setting. (4) Chest pain Qualifiers: Chest pain type: unspecified Qualified Code(s): R07.9 - Chest pain, unspecified Is this a current diagnosis for this admission?: Yes Plan: Musculoskeletal in etiology as demonstrated by its characteristics and physical exam. No need for further cardiac work-up at this point.
--- NOTE | 2020-04-23 09:04 | PDOC PROGRESS REPORT ---
Subjective Progress Note for:: 04/23/20 Subjective:: ss: URSZULA VANEGAS is a 50 year old female with history of CHF, persistent atrial fibrillation, diabetes, who presents to the hospital for evaluation of progressive shortness of breath at rest and on exertion. Her symptoms started 1 week ago. Also associated with a dry cough. Denies any significant sputum production. She admits to orthopnea and some episodes of PND. Denies any leg swelling but admits to increased abdominal girth. Exercise tolerance is also depreciated. Regarding her chest pain, she describes this as substernal which started about 2 days ago and occurs every now and then. Describes it being worse with exertion but does not improve with rest. Denies any nausea or vomiting. Denies any history of heart attacks. Currently chest pain is mild and feels just like a tightness at this point. She denies any fevers or chills or sick COVID-19 exposures. Her gylnfm-so-ink is a nurse but has not shown any symptoms recently. Does not know all her medications to verify if she has been taking all of them but does states compliance. Admitted in September 2019 for similar reasons and ended up being discharged with plan to follow-up with Dr. Castro in outpatient. 04/22/[id number]-[id number]-old female with history of congestive heart failure with EF of 40 to 45%, chronic persistent atrial fibrillation, type 2 diabetes mellitus admitted for increasing shortness of breath and orthopnea. Also complains of chest pains as per the cardiology it is musculoskeletal in nature. Cardiology consult was done recommendation is to start on Entresto 24/26 mg twice daily and fluid restriction 1500 cc/day. Patient is comfortably in the bed denies any problems requesting hOt coffee. 04/[id number]-old female with history of chronic CHF admitted for acute on chronic systolic heart failure exacerbation came in with shortness of breath and orthopnea. Patient is presently on fluid restriction 1500 cc/day, and Entresto. Cardiology signed off. Patient is on Lasix 40 mg p.o. daily at this time. Euvolemic at the time of my examination. Reason For Visit: HEART FAILURE,AFIB RVE Physical Exam Vital Signs: Temp Pulse Resp BP Pulse Ox 97.9 F 99 16 97/65 L 95 04/23/20 08:19 04/23/20 07:00 04/23/20 03:15 04/23/20 03:15 04/23/20 03:15 Intake & Output 04/22/20 04/23/20 04/24/20 06:59 06:59 06:59 Intake Total 1000 960 Output Total 2350 Balance 1000 -1390 Weight 68 kg 88.3 kg General appearance: PRESENT: no acute distress, cooperative, well-developed Head exam: PRESENT: atraumatic, other - Acromegaly Eye exam: PRESENT: PERRLA Mouth exam: PRESENT: moist, tongue midline Teeth exam: PRESENT: poor dentation Neck exam: ABSENT: carotid bruit, JVD, lymphadenopathy, thyromegaly Respiratory exam: PRESENT: decreased breath sounds Cardiovascular exam: PRESENT: RRR. ABSENT: diastolic murmur, rubs, systolic murmur GI/Abdominal exam: PRESENT: normal bowel sounds, soft. ABSENT: distended, guarding, mass, organolmegaly, rebound, tenderness Rectal exam: PRESENT: deferred Extremities exam: PRESENT: full ROM. ABSENT: calf tenderness, clubbing, pedal edema Neurological exam: PRESENT: alert, awake, oriented to person, oriented to place, oriented to time, oriented to situation, CN II-XII grossly intact. ABSENT: motor sensory deficit Psychiatric exam: PRESENT: appropriate affect, normal mood. ABSENT: homicidal ideation, suicidal ideation Results Laboratory Results: 04/23/20 04:33 04/23/20 04:33 04/23/20 04/23/20 04:33 04:33 WBC 5.4 RBC 4.13 Hgb 12.0 Hct 36.3 MCV 88 MCH 29.1 MCHC 33.2 RDW 17.4 H Plt Count 259 Seg Neutrophils % 56.3 Sodium 138.6 Potassium 4.5 Chloride 104 Carbon Dioxide 27 Anion Gap 8 BUN 13 Creatinine 0.60 Est GFR ( Amer) > 60 Glucose 154 H Calcium 8.9 Magnesium 1.8 Total Bilirubin 0.7 AST 43 H Alkaline Phosphatase 71 Total Protein 6.2 L Albumin 3.2 L 04/21/20 04/21/20 04/21/20 13:18 13:18 13:18 Creatine Kinase 106 CK-MB (CK-2) 1.38 Troponin I 0.014 NT-Pro-B Natriuret Pep 2890 H 04/21/20 19:45 Creatine Kinase CK-MB (CK-2) Troponin I < 0.012 NT-Pro-B Natriuret Pep Impressions: Chest X-Ray 04/21/20 00:00 IMPRESSION: Cardiomegaly and vascular congestion new from prior study. Assessment and Plan - Diagnosis (1) Acute on chronic systolic (congestive) heart failure Is this a current diagnosis for this admission?: Yes Plan: Started on diuresis with IV Lasix 40 mg twice daily. 1500 cc fluid restriction, daily weights, monitor on telemetry. Strict I's and O's. Monitor and replete electrolytes accordingly. We will resume lisinopril once blood pressure improves. Echocardiogram in September 2019 shows EF of 40 to 45% Cardiology consulted 04/22/20-patient is receiving Lasix 40 mg IV twice a day. On fluid restriction 1500 cc/day. As per cardiology recommendations to start on Entresto 24/26 mg p.o. twice a day. Latest echocardiogram shows EF of 40 to 45%. 04/23/2020-patient admitted with acute on chronic systolic heart failure on Lasix 40 mg p.o. daily. Also on fluid restriction 1500 cc/day patient is presently on Entresto. Latest echocardiogram shows EF 40 to 45%. (2) Persistent atrial fibrillation with rapid ventricular response Is this a current diagnosis for this admission?: Yes Plan: On last admission, patient was unable to get cardioverted due to atrial appen dage thrombus noted on ANDREI. I will resume patient's Toprol-XL IV Lopressor as needed We will give patient IV digoxin given her soft blood pressures to help control heart rate Telemetry monitoring. Continue Eliquis 04/22/2020-patient has history of chronic persistent atrial fibrillation on Eliquis at home. Heart rate this morning is 76. Well controlled. Patient is presently on metoprolol 50 mg every 12 hours, rifaximin 5 mg p.o. twice daily. Received 1 dose of digoxin yesterday. 04/23/20-patient admitted with persistent atrial fibrillation which is chronic with RVR. Presently on metoprolol 50 mg p.o. twice daily heart rate is around 65. Well-controlled. Plan is to continue Eliquis at this time. (3) Dyspnea on exertion Is this a current diagnosis for this admission?: Yes Plan: 04/22/2020-patient came with complaints of shortness of breath with exertion denies any complaints at this time. Pulse ox is 97% room air. It may be secondary to A. fib with RVR and CHF exacerbation. 04/23/2020-dyspnea on exertion resolving pulse ox is 95% on room air today. (4) Hypotension Qualifiers: Hypotension type: other hypotension type Qualified Code(s): I95.89 - Other hypotension Is this a current diagnosis for this admission?: Yes Plan: May be secondary to heart failure or rapid A. fib. Did receive a liter bolus in ER will hold off on further fluids. BP is improved right now. Will monitor closely. Treatment of A. fib as above. 04/22/2020-blood pressure just now is 127/78. Hypotension resolved. She received a bolus of IV fluids in the ER. Not on IV fluids at this time. (5) Atrial thrombus Is this a current diagnosis for this admission?: No Plan: History of atrial appendage thrombus noted on ANDREI 5 months ago. Continue Eliquis. (6) Diabetes mellitus type 1 Is this a current diagnosis for this admission?: No Plan: Accu-Cheks, sliding scale, Lantus 04/22/2020-latest blood sugar is 118. To continue insulin sliding scale before meals and at bedtime and Lantus 20 units subcu daily. Diet exercise weight loss lifestyle modifications discussed with the patient and to check for hemoglobin A1c. 04/23/2020-hemoglobin A1c is 8.5. Presently on insulin sliding scale before meals and at bedtime and Lantus 20 units subcu daily. Blood sugar dropped to 44 last night. Plan is to continue to closely monitor the blood sugars before meals and at bedtime. (7) Acromegaly Is this a current diagnosis for this admission?: No - Time Anticipated Discharge Disposition: Home, Self Care Anticipated Discharge Timeframe: within 48 hours
[2020-04-23] MEDS: SACUBITRIL/VALSARTAN 24 MG/26 MG TABLET PO SCH ×2 (09:15→18:22)
[2020-04-23] MEDS: BROMOCRIPTINE MESYLATE 2.5 MG TABLET PO SCH (09:15)
[2020-04-23] MEDS: METOPROLOL SUCCINATE 50 MG TAB.SR.24H PO SCH (09:15)
[2020-04-23] MEDS: APIXABAN 5 MG TABLET PO SCH ×2 (09:15→18:22)
[2020-04-23] MEDS: FUROSEMIDE 40 MG TABLET PO SCH (09:15)
[2020-04-23] MEDS: INSULIN GLARGINE,HUM.REC.ANLOG 1,000 UNIT/10 ML VIAL SUBCUT SCH (09:17)
[2020-04-23] MEDS: ACETAMINOPHEN 325 MG TABLET PO PRN (11:12)
[2020-04-23] MEDS: ATORVASTATIN CALCIUM 40 MG TABLET PO SCH (22:05)
[2020-04-23] MEDS ORDERED: CETIRIZINE 5 MG TABLET PO ONE (22:30)
[2020-04-23] MEDS ORDERED: MELATONIN 5 MG TABLET PO SCH (23:45)
[2020-04-24] MEDS: ACETAMINOPHEN 325 MG TABLET PO PRN ×2 (03:49→13:09)
[2020-04-24 06:07] LABS: ALKALINE PHOSPHATASE 70 U/L (38-126); ANION GAP 10 (5-19); ASPARTATE AMINO TRANSFERASE 38 U/L (14-36); BILIRUBIN,DIRECT 0.2 mg/dL (0.0-0.4); BILIRUBIN,TOTAL 0.5 mg/dL (0.2-1.3); BLOOD UREA NITROGEN 18 mg/dL (7-20); CALCIUM 8.7 mg/dL (8.4-10.2); CARBON DIOXIDE 23 mmol/L (22-30); CHLORIDE 105 mmol/L (98-107); GLUCOSE 170 mg/dL (75-110); POTASSIUM 4.5 mmol/L (3.6-5.0); TOTAL PROTEIN 5.9 g/dL (6.3-8.2)
[2020-04-24] MEDS: FUROSEMIDE 40 MG TABLET PO SCH (08:01)
[2020-04-24] MEDS: INSULIN LISPRO 100 UNIT/ML 3 ML VIAL SUBCUT SCH ×4 (08:01→21:57)
[2020-04-24] MEDS: METOPROLOL SUCCINATE 50 MG TAB.SR.24H PO SCH (09:30)
[2020-04-24] MEDS: APIXABAN 5 MG TABLET PO SCH ×2 (09:30→17:50)
[2020-04-24] MEDS: BROMOCRIPTINE MESYLATE 2.5 MG TABLET PO SCH (09:31)
[2020-04-24] MEDS: CETIRIZINE 5 MG TABLET PO SCH (09:31)
[2020-04-24] MEDS: INSULIN GLARGINE,HUM.REC.ANLOG 1,000 UNIT/10 ML VIAL SUBCUT SCH (09:32)
--- NOTE | 2020-04-24 09:54 | PDOC PROGRESS REPORT ---
Subjective Progress Note for:: 04/24/20 Subjective:: ss: URSZULA VANEGAS is a 50 year old female with history of CHF, persistent atrial fibrillation, diabetes, who presents to the hospital for evaluation of progressive shortness of breath at rest and on exertion. Her symptoms started 1 week ago. Also associated with a dry cough. Denies any significant sputum production. She admits to orthopnea and some episodes of PND. Denies any leg swelling but admits to increased abdominal girth. Exercise tolerance is also depreciated. Regarding her chest pain, she describes this as substernal which started about 2 days ago and occurs every now and then. Describes it being worse with exertion but does not improve with rest. Denies any nausea or vomiting. Denies any history of heart attacks. Currently chest pain is mild and feels just like a tightness at this point. She denies any fevers or chills or sick COVID-19 exposures. 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 Does not know all her medications to verify if she has been taking all of them but does states compliance. Admitted in September 2019 for similar reasons and ended up being discharged with plan to follow-up with Dr. Castro in outpatient. 04/22/[id number]-stup-old female with history of congestive heart failure with EF of 40 to 45%, chronic persistent atrial fibrillation, type 2 diabetes mellitus admitted for increasing shortness of breath and orthopnea. Also complains of chest pains as per the cardiology it is musculoskeletal in nature. Cardiology consult was done recommendation is to start on Entresto 24/26 mg twice daily and fluid restriction 1500 cc/day. Patient is comfortably in the bed denies any problems requesting hOt coffee. 04/[id number]-rgxz-old female with history of chronic CHF admitted for acute on chronic systolic heart failure exacerbation came in with shortness of breath and orthopnea. Patient is presently on fluid restriction 1500 cc/day, and Entresto. Cardiology signed off. Patient is on Lasix 40 mg p.o. daily at this time. Euvolemic at the time of my examination. 04/2468-03-qbfw-old female admitted with acute on chronic systolic heart failure. Patient states she is feeling well and depressed. blood Pressure is 100/64. To hold Entresto at this time. Patient is euvolemic at the time of examination. Reason For Visit: HEART FAILURE,AFIB RVE Physical Exam Vital Signs: Temp Pulse Resp BP Pulse Ox 97.9 F 83 20 101/64 98 04/24/20 08:21 04/24/20 07:15 04/24/20 07:15 04/24/20 07:15 04/24/20 07:15 Intake & Output 04/23/20 04/24/20 04/25/20 06:59 06:59 06:59 Intake Total 960 640 Output Total 2350 Balance -1390 640 Weight 88.3 kg 82.1 kg General appearance: PRESENT: no acute distress, cooperative, well-developed Head exam: PRESENT: other - Acromegaly features present Eye exam: PRESENT: conjunctiva pale, PERRLA Mouth exam: PRESENT: moist, tongue midline Teeth exam: PRESENT: poor dentation Neck exam: PRESENT: carotid bruit Respiratory exam: PRESENT: decreased breath sounds Cardiovascular exam: PRESENT: RRR. ABSENT: diastolic murmur, rubs, systolic murmur GI/Abdominal exam: PRESENT: normal bowel sounds, soft. ABSENT: distended, guarding, mass, organolmegaly, rebound, tenderness Rectal exam: PRESENT: deferred Extremities exam: PRESENT: full ROM. ABSENT: calf tenderness, clubbing, pedal edema Neurological exam: PRESENT: alert, awake, oriented to person, oriented to place, oriented to time, oriented to situation, CN II-XII grossly intact. ABSENT: motor sensory deficit Psychiatric exam: PRESENT: appropriate affect, normal mood. ABSENT: homicidal ideation, suicidal ideation Results Laboratory Results: 04/23/20 04:33 04/24/20 05:21 04/24/20 05:21 Sodium 137.5 Potassium 4.5 Chloride 105 Carbon Dioxide 23 Anion Gap 10 BUN 18 Creatinine 0.59 Est GFR ( Amer) > 60 Glucose 170 H Calcium 8.7 Magnesium 1.9 Total Bilirubin 0.5 AST 38 H Alkaline Phosphatase 70 Total Protein 5.9 L Albumin 3.0 L 04/21/20 04/21/20 04/21/20 13:18 13:18 13:18 Creatine Kinase 106 CK-MB (CK-2) 1.38 Troponin I 0.014 NT-Pro-B Natriuret Pep 2890 H 04/21/20 19:45 Creatine Kinase CK-MB (CK-2) Troponin I < 0.012 NT-Pro-B Natriuret Pep Impressions: Chest X-Ray 04/21/20 00:00 IMPRESSION: Cardiomegaly and vascular congestion new from prior study. Assessment and Plan - Diagnosis (1) Acute on chronic systolic (congestive) heart failure Is this a current diagnosis for this admission?: Yes Plan: Started on diuresis with IV Lasix 40 mg twice daily. 1500 cc fluid restriction, daily weights, monitor on telemetry. Strict I's and O's. Monitor and replete electrolytes accordingly. We will resume lisinopril once blood pressure improves. Echocardiogram in September 2019 shows EF of 40 to 45% Cardiology consulted 04/22/20-patient is receiving Lasix 40 mg IV twice a day. On fluid restriction 1500 cc/day. As per cardiology recommendations to start on Entresto 24/26 mg p.o. twice a day. Latest echocardiogram shows EF of 40 to 45%. 04/23/2020-patient admitted with acute on chronic systolic heart failure on Lasix 40 mg p.o. daily. Also on fluid restriction 1500 cc/day patient is presently on Entresto. Latest echocardiogram shows EF 40 to 45%. 04/24/2020-patient admitted with acute on chronic systolic heart failure blood pressure is 101/60. To hold Entresto this morning. Plan is to also hold Lasix at this time. Patient is euvolemic at the time of examination. (2) Persistent atrial fibrillation with rapid ventricular response Is this a current diagnosis for this admission?: Yes Plan: On last admission, patient was unable to get cardioverted due to atrial appendage thrombus noted on ANDREI. I will resume patient's Toprol-XL IV Lopressor as needed We will give patient IV digoxin given her soft blood pressures to help control heart rate Telemetry monitoring. Continue Eliquis 04/22/2020-patient has history of chronic persistent atrial fibrillation on Eliquis at home. Heart rate this morning is 76. Well controlled. Patient is presently on metoprolol 50 mg every 12 hours, rifaximin 5 mg p.o. twice daily. Received 1 dose of digoxin yesterday. 04/23/20-patient admitted with persistent atrial fibrillation which is chronic with RVR. Presently on metoprolol 50 mg p.o. twice daily heart rate is around 65. Well-controlled. Plan is to continue Eliquis at this time. 04/24/2020-heart rate is around 67. Rate controlled A. fib. Plan is to continue the present management at this time. (3) Dyspnea on exertion Is this a current diagnosis for this admission?: Yes Plan: 04/22/2020-patient came with complaints of shortness of breath with exertion denies any complaints at this time. Pulse ox is 97% room air. It may be secondary to A. fib with RVR and CHF exacerbation. 04/23/2020-dyspnea on exertion resolving pulse ox is 95% on room air today. 04/24/2020-pulse ox is 96% on room air comfortably in the bed laying flat denies any problems with breathing. (4) Hypotension Qualifiers: Hypotension type: other hypotension type Qualified Code(s): I95.89 - Other hypotension Is this a current diagnosis for this admission?: Yes Plan: May be secondary to heart failure or rapid A. fib. Did receive a liter bolus in ER will hold off on further fluids. BP is improved right now. Will monitor closely. Treatment of A. fib as above. 04/22/2020-blood pressure just now is 127/78. Hypotension resolved. She received a bolus of IV fluids in the ER. Not on IV fluids at this time. 04/24/2020-to hold Entresto at this time. (5) Atrial thrombus Is this a current diagnosis for this admission?: No (6) Diabetes mellitus type 1 Is this a current diagnosis for this admission?: No Plan: Accu-Cheks, sliding scale, Lantus 04/22/2020-latest blood sugar is 118. To continue insulin sliding scale before meals and at bedtime and Lantus 20 units subcu daily. Diet exercise weight loss lifestyle modifications discussed with the patient and to check for hemoglobin A1c. 04/23/2020-hemoglobin A1c is 8.5. Presently on insulin sliding scale before meals and at bedtime and Lantus 20 units subcu daily. Blood sugar dropped to 44 last night. Plan is to continue to closely monitor the blood sugars before meals and at bedtime. 04/24/2020-latest blood sugar is 84. Plan is to closely monitor the blood sugars at this time. (7) Acromegaly Is this a current diagnosis for this admission?: No - Time Anticipated Discharge Disposition: Home, Self Care Anticipated Discharge Timeframe: within 48 hours
[2020-04-24] MEDS ORDERED: MORPHINE SULFATE 10 MG/ML INJ IV PRN (13:01)
[2020-04-24] MEDS: ONDANSETRON HCL INJ/PF 4 MG/2 ML SDV IV PRN (14:08)
--- NOTE | 2020-04-24 19:01 | EKG REPORT ---
SEVERITY:- ABNORMAL ECG - ATRIAL FIBRILLATION REPOL ABNRM SUGGESTS ISCHEMIA, DIFFUSE LEADS : Confirmed by: Ijeoma Villegas MD 24-Apr-2020 19:01:27
[2020-04-24] MEDS: ATORVASTATIN CALCIUM 40 MG TABLET PO SCH (21:57)
[2020-04-25] MEDS: DEXTROSE 40% GEL 15 GM TUBE PO PRN ×3 (06:12→22:28)
[2020-04-25] MEDS: INSULIN LISPRO 100 UNIT/ML 3 ML VIAL SUBCUT SCH ×4 (08:43→21:45)
[2020-04-25] MEDS: BROMOCRIPTINE MESYLATE 2.5 MG TABLET PO SCH (09:34)
[2020-04-25] MEDS: CETIRIZINE 5 MG TABLET PO SCH (09:35)
[2020-04-25] MEDS: METOPROLOL SUCCINATE 50 MG TAB.SR.24H PO SCH (09:36)
[2020-04-25] MEDS: APIXABAN 5 MG TABLET PO SCH ×2 (09:36→17:09)
[2020-04-25] MEDS: FUROSEMIDE 40 MG TABLET PO SCH (09:37)
[2020-04-25 10:07] LABS: ALBUMIN 3.4 g/dL (3.5-5.0); ALKALINE PHOSPHATASE 76 U/L (38-126); ANION GAP 8 (5-19); ASPARTATE AMINO TRANSFERASE 44 U/L (14-36); BILIRUBIN,DIRECT 0.3 mg/dL (0.0-0.4); BILIRUBIN,TOTAL 0.5 mg/dL (0.2-1.3); BLOOD UREA NITROGEN 16 mg/dL (7-20); CALCIUM 8.9 mg/dL (8.4-10.2); CARBON DIOXIDE 28 mmol/L (22-30); CHLORIDE 101 mmol/L (98-107); GLUCOSE 305 mg/dL (75-110); POTASSIUM 5.1 mmol/L (3.6-5.0); TOTAL PROTEIN 6.5 g/dL (6.3-8.2)
[2020-04-25 10:19] LABS: ABSOLUTE BASOPHILS # (AUTO) 0.1 10^3/uL (0.0-0.2); ABSOLUTE EOSINOPHILS # (AUTO) 0.2 10^3/uL (0.0-0.6); ABSOLUTE LYMPHOCYTES (AUTO) 1.4 10^3/uL (0.5-4.7); ABSOLUTE MONOCYTES (AUTO) 0.6 10^3/uL (0.1-1.4); ABSOLUTE NEUT (AUTO) 3.6 10^3/uL (1.7-8.2); BASOPHILS % (AUTO) 1.3 % (0-2); EOSINOPHILS % (AUTO) 3.6 % (0-6); HEMATOCRIT 36.2 % (36.0-47.0); HEMOGLOBIN 12.3 g/dL (12.0-15.5); LYMPHOCYTES % (AUTO) 23.6 % (13-45); MEAN CORPUSCULAR HGB CONC 33.9 g/dL (32.0-36.0); MEAN CORPUSCULAR VOLUME 88 fl (80-97); MONOCYTES % (AUTO) 9.5 % (3-13); PLATELET COUNT 305 10^3/uL (150-450); RED CELL DISTRIBUTION WIDTH 17.5 % (11.5-14.0); TOTAL CELLS COUNTED % (AUTO) 100 %; WHITE BLOOD COUNT 5.9 10^3/uL (4.0-10.5)
--- NOTE | 2020-04-25 11:16 | PDOC PROGRESS REPORT ---
Subjective Progress Note for:: 04/25/20 Subjective:: ss: URSZULA VANEGAS is a 50 year old female with history of CHF, persistent atrial fibrillation, diabetes, who presents to the hospital for evaluation of progressive shortness of breath at rest and on exertion. Her symptoms started 1 week ago. Also associated with a dry cough. Denies any significant sputum production. She admits to orthopnea and some episodes of PND. Denies any leg swelling but admits to increased abdominal girth. Exercise tolerance is also depreciated. Regarding her chest pain, she describes this as substernal which started about 2 days ago and occurs every now and then. Describes it being worse with exertion but does not improve with rest. Denies any nausea or vomiting. Denies any history of heart attacks. Currently chest pain is mild and feels just like a tightness at this point. She denies any fevers or chills or sick COVID-19 exposures. 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 Does not know all her medications to verify if she has been taking all of them but does states compliance. Admitted in September 2019 for similar reasons and ended up being discharged with plan to follow-up with Dr. Castro in outpatient. 04/22/[id number]-nvyy-old female with history of congestive heart failure with EF of 40 to 45%, chronic persistent atrial fibrillation, type 2 diabetes mellitus admitted for increasing shortness of breath and orthopnea. Also complains of chest pains as per the cardiology it is musculoskeletal in nature. Cardiology consult was done recommendation is to start on Entresto 24/26 mg twice daily and fluid restriction 1500 cc/day. Patient is comfortably in the bed denies any problems requesting hOt coffee. 04/23/[id number]-ctca-old female with history of chronic CHF admitted for acute on chronic systolic heart failure exacerbation came in with shortness of breath and orthopnea. Patient is presently on fluid restriction 1500 cc/day, and Entresto. Cardiology signed off. Patient is on Lasix 40 mg p.o. daily at this time. Euvolemic at the time of my examination. 04/2415-65-krxz-old female admitted with acute on chronic systolic heart failure. Patient states she is feeling well and depressed. blood Pressure is 100/64. To hold Entresto at this time. Patient is euvolemic at the time of examination. 04/25/20-patient is hypotensive heart rate is around 140 in A. fib. Requested input from cardiology. Patient is asymptomatic comfortably in the bed communicating well. Reason For Visit: HEART FAILURE,AFIB RVE Physical Exam Vital Signs: Temp Pulse Resp BP Pulse Ox 97.4 F 137 H 19 92/49 L 97 04/25/20 10:00 04/25/20 07:18 04/25/20 07:18 04/25/20 07:18 04/25/20 07:18 Intake & Output 04/24/20 04/25/20 04/26/20 06:59 06:59 06:59 Intake Total 640 1385 Output Total 1100 Balance 640 285 Weight 82.1 kg 82.1 kg General appearance: PRESENT: no acute distress, well-developed Head exam: PRESENT: other - Acromegaly Eye exam: PRESENT: conjunctiva pink, EOMI, PERRLA. ABSENT: scleral icterus Mouth exam: PRESENT: moist, tongue midline Teeth exam: PRESENT: poor dentation Neck exam: ABSENT: carotid bruit, JVD, lymphadenopathy, thyromegaly Respiratory exam: PRESENT: clear to auscultation patrice. ABSENT: rales, rhonchi, wheezes Pulses: PRESENT: normal dorsalis pedis pul GI/Abdominal exam: PRESENT: normal bowel sounds, soft. ABSENT: distended, guarding, mass, organolmegaly, rebound, tenderness Rectal exam: PRESENT: deferred Extremities exam: PRESENT: full ROM. ABSENT: calf tenderness, clubbing, pedal edema Neurological exam: PRESENT: alert, awake, oriented to person, oriented to place, oriented to time, oriented to situation, CN II-XII grossly intact. ABSENT: motor sensory deficit Psychiatric exam: PRESENT: appropriate affect, normal mood. ABSENT: homicidal ideation, suicidal ideation Results Laboratory Results: 04/25/20 09:20 04/25/20 09:20 04/25/20 04/25/20 09: 09:20 WBC 5.9 RBC 4.10 Hgb 12.3 Hct 36.2 MCV 88 MCH 30.0 MCHC 33.9 RDW 17.5 H Plt Count 305 Seg Neutrophils % 62.0 Sodium 136.5 L Potassium 5.1 H Chloride 101 Carbon Dioxide 28 Anion Gap 8 BUN 16 Creatinine 0.65 Est GFR ( Amer) > 60 Glucose 305 H Calcium 8.9 Magnesium 1.9 Total Bilirubin 0.5 AST 44 H Alkaline Phosphatase 76 Total Protein 6.5 Albumin 3.4 L 04/21/20 04/21/20 04/21/20 13:18 13:18 13:18 Creatine Kinase 106 CK-MB (CK-2) 1.38 Troponin I 0.014 NT-Pro-B Natriuret Pep 2890 H 04/21/20 04/24/20 19:45 13:18 Creatine Kinase CK-MB (CK-2) Troponin I < 0.012 < 0.012 NT-Pro-B Natriuret Pep Impressions: Chest X-Ray 04/21/20 00:00 IMPRESSION: Cardiomegaly and vascular congestion new from prior study. Assessment and Plan - Diagnosis (1) Acute on chronic systolic (congestive) heart failure Is this a current diagnosis for this admission?: Yes Plan: Started on diuresis with IV Lasix 40 mg twice daily. 1500 cc fluid restriction, daily weights, monitor on telemetry. Strict I's and O's. Monitor and replete electrolytes accordingly. We will resume lisinopril once blood pressure improves. Echocardiogram in September 2019 shows EF of 40 to 45% Cardiology consulted 04/22/20-patient is receiving Lasix 40 mg IV twice a day. On fluid restriction 1500 cc/day. As per cardiology recommendations to start on Entresto 24/26 mg p.o. twice a day. Latest echocardiogram shows EF of 40 to 45%. 04/23/2020-patient admitted with acute on chronic systolic heart failure on Lasix 40 mg p.o. daily. Also on fluid restriction 1500 cc/day patient is presently on Entresto. Latest echocardiogram shows EF 40 to 45%. 04/24/2020-patient admitted with acute on chronic systolic heart failure blood pressure is 101/60. To hold Entresto this morning. Plan is to also hold Lasix at this time. Patient is euvolemic at the time of examination. 04/25/2020-patient admitted with acute on chronic systolic heart failure patient is hypotensive not on Lasix not on Entresto at this time. (2) Persistent atrial fibrillation with rapid ventricular response Is this a current diagnosis for this admission?: Yes Plan: On last admission, patient was unable to get cardioverted due to atrial appendage thrombus noted on ANDREI. I will resume patient's Toprol-XL IV Lopressor as needed We will give patient IV digoxin given her soft blood pressures to help control heart rate Telemetry monitoring. Continue Eliquis 04/22/2020-patient has history of chronic persistent atrial fibrillation on Eliquis at home. Heart rate this morning is 76. Well controlled. Patient is presently on metoprolol 50 mg every 12 hours, Received 1 dose of digoxin yesterday. 04/23/20-patient admitted with persistent atrial fibrillation which is chronic with RVR. Presently on metoprolol 50 mg p.o. twice daily heart rate is around 65. Well-controlled. Plan is to continue Eliquis at this time. 04/24/2020-heart rate is around 67. Rate controlled A. fib. Plan is to continue the present management at this time. 04/25/2020-heart rate is around 140 and systolic blood pressure in the 90s. Meto prolol is on hold, to continue Eliquis at this time. Cardiology input is requested. (3) Dyspnea on exertion Is this a current diagnosis for this admission?: Yes Plan: 04/22/2020-patient came with complaints of shortness of breath with exertion denies any complaints at this time. Pulse ox is 97% room air. It may be secondary to A. fib with RVR and CHF exacerbation. 04/23/2020-dyspnea on exertion resolving pulse ox is 95% on room air today. 04/24/2020-pulse ox is 96% on room air comfortably in the bed laying flat denies any problems with breathing. (4) Hypotension Qualifiers: Hypotension type: other hypotension type Qualified Code(s): I95.89 - Other hypotension Is this a current diagnosis for this admission?: Yes Plan: May be secondary to heart failure or rapid A. fib. Did receive a liter bolus in ER will hold off on further fluids. BP is improved right now. Will monitor closely. Treatment of A. fib as above. 04/22/2020-blood pressure just now is 127/78. Hypotension resolved. She r eceived a bolus of IV fluids in the ER. Not on IV fluids at this time. 04/24/2020-to hold Entresto at this time. 04/25/2020-systolic blood pressure in the 90s euvolemic, Lasix and Entresto on hold at this time. (5) Atrial thrombus Is this a current diagnosis for this admission?: No Plan: History of atrial appendage thrombus noted on ANDREI 5 months ago. Continue Eliquis. (6) Diabetes mellitus type 1 Is this a current diagnosis for this admission?: No Plan: Accu-Cheks, sliding scale, Lantus 04/22/2020-latest blood sugar is 118. To continue insulin sliding scale before meals and at bedtime and Lantus 20 units subcu daily. Diet exercise weight loss lifestyle modifications discussed with the patient and to check for hemoglobin A1c. 04/23/2020-hemoglobin A1c is 8.5. Presently on insulin sliding scale before meals and at bedtime and Lantus 20 units subcu daily. Blood sugar dropped to 44 last night. Plan is to continue to closely monitor the blood sugars before meals and at bedtime. 04/24/2020-latest blood sugar is 84. Plan is to closely monitor the blood sugars at this time. 04/25/2020-latest blood sugar is 301 plan is to restart Lantus 20 units subcu bedtime. (7) Acromegaly Is this a current diagnosis for this admission?: No - Time Anticipated Discharge Disposition: Home, Self Care Anticipated Discharge Timeframe: within 48 hours
[2020-04-25] MEDS: INSULIN GLARGINE,HUM.REC.ANLOG 1,000 UNIT/10 ML VIAL SUBCUT SCH (11:42)
[2020-04-25] MEDS: ATORVASTATIN CALCIUM 40 MG TABLET PO SCH (21:53)
[2020-04-25] MEDS ORDERED: INSULIN DEGLUDEC 20 UNIT SUBCUT SCH (22:00)
[2020-04-26] MEDS: DEXTROSE 50%-WATER 25 GM/50 ML DISP.SYRIN IV PRN (03:46)
[2020-04-26] MEDS: METOPROLOL TARTRATE 25 MG TABLET PO SCH ×4 (05:29→23:04)
[2020-04-26 07:36] LABS: ANION GAP 7 (5-19); BLOOD UREA NITROGEN 18 mg/dL (7-20); CALCIUM 9.1 mg/dL (8.4-10.2); CARBON DIOXIDE 27 mmol/L (22-30); CHLORIDE 104 mmol/L (98-107); GLUCOSE 133 mg/dL (75-110); POTASSIUM 5.1 mmol/L (3.6-5.0)
[2020-04-26] MEDS: INSULIN LISPRO 100 UNIT/ML 3 ML VIAL SUBCUT SCH ×4 (09:04→23:02)
[2020-04-26] MEDS: INSULIN GLARGINE,HUM.REC.ANLOG 1,000 UNIT/10 ML VIAL SUBCUT SCH (09:05)
[2020-04-26] MEDS: FUROSEMIDE 40 MG TABLET PO SCH (09:05)
[2020-04-26] MEDS: CETIRIZINE 5 MG TABLET PO SCH (09:08)
[2020-04-26] MEDS: BROMOCRIPTINE MESYLATE 2.5 MG TABLET PO SCH (09:08)
[2020-04-26] MEDS: APIXABAN 5 MG TABLET PO SCH ×2 (09:08→17:12)
[2020-04-26] MEDS ORDERED: ETOMIDATE INJ/PF 20 MG/10 ML SDV IV ONE ×2 (09:12)
[2020-04-26] MEDS ORDERED: DEXTROSE 5%-NORMAL SALINE 1,000 ML IV PRN (09:53)
--- NOTE | 2020-04-26 09:56 | PDOC PROGRESS REPORT ---
Subjective Progress Note for:: 04/26/20 Subjective:: ss: URSZULA VANEGAS is a 50 year old female with history of CHF, persistent atrial fibrillation, diabetes, who presents to the hospital for evaluation of progressive shortness of breath at rest and on exertion. Her symptoms started 1 week ago. Also associated with a dry cough. Denies any significant sputum production. She admits to orthopnea and some episodes of PND. Denies any leg swelling but admits to increased abdominal girth. Exercise tolerance is also depreciated. Regarding her chest pain, she describes this as substernal which started about 2 days ago and occurs every now and then. Describes it being worse with exertion but does not improve with rest. Denies any nausea or vomiting. Denies any history of heart attacks. Currently chest pain is mild and feels just like a tightness at this point. She denies any fevers or chills or sick COVID-19 exposures. 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 Does not know all her medications to verify if she has been taking all of them but does states compliance. Admitted in September 2019 for similar reasons and ended up being discharged with plan to follow-up with Dr. Castro in outpatient. 04/22/[id number]-wybg-old female with history of congestive heart failure with EF of 40 to 45%, chronic persistent atrial fibrillation, type 2 diabetes mellitus admitted for increasing shortness of breath and orthopnea. Also complains of chest pains as per the cardiology it is musculoskeletal in nature. Cardiology consult was done recommendation is to start on Entresto 24/26 mg twice daily and fluid restriction 1500 cc/day. Patient is comfortably in the bed denies any problems requesting hOt coffee. 04/23/[id number]-qyff-old female with history of chronic CHF admitted for acute on chronic systolic heart failure exacerbation came in with shortness of breath and orthopnea. Patient is presently on fluid restriction 1500 cc/day, and Entresto. Cardiology signed off. Patient is on Lasix 40 mg p.o. daily at this time. Euvolemic at the time of my examination. 04/2417-05-wfbv-old female admitted with acute on chronic systolic heart failure. Patient states she is feeling well and depressed. blood Pressure is 100/64. To hold Entresto at this time. Patient is euvolemic at the time of examination. 04/25/20-patient is hypotensive heart rate is around 140 in A. fib. Requested input from cardiology. Patient is asymptomatic comfortably in the bed communicating well. 04/26/2020-patient is n.p.o. for possible ANDREI and cardioversion today. Reason For Visit: HEART FAILURE,AFIB RVE Physical Exam Vital Signs: Temp Pulse Resp BP Pulse Ox 97.6 F 80 14 95/64 L 99 04/26/20 08:07 04/26/20 08:07 04/26/20 08:07 04/26/20 08:07 04/26/20 08:07 Intake & Output 04/25/20 04/26/20 04/27/20 06:59 06:59 06:59 Intake Total 1385 840 Output Total 1100 800 Balance 285 40 Weight 82.1 kg 85.2 kg General appearance: PRESENT: no acute distress, cooperative, well-developed Head exam: PRESENT: other - Acromegaly Eye exam: PRESENT: PERRLA Mouth exam: PRESENT: moist, tongue midline Teeth exam: PRESENT: poor dentation Neck exam: ABSENT: carotid bruit, JVD, lymphadenopathy, thyromegaly Respiratory exam: PRESENT: decreased breath sounds Cardiovascular exam: PRESENT: RRR. ABSENT: diastolic murmur, rubs, systolic murmur GI/Abdominal exam: PRESENT: normal bowel sounds, soft. ABSENT: distended, guarding, mass, organolmegaly, rebound, tenderness Rectal exam: PRESENT: deferred Extremities exam: PRESENT: full ROM. ABSENT: calf tenderness, clubbing, pedal edema Neurological exam: PRESENT: alert, awake, oriented to person, oriented to place, oriented to time, oriented to situation, CN II-XII grossly intact. ABSENT: m otor sensory deficit Psychiatric exam: PRESENT: appropriate affect, normal mood. ABSENT: homicidal ideation, suicidal ideation Results Laboratory Results: 04/25/20 09:20 04/26/20 06:44 04/25/20 04/25/20 04/26/20 09:20 09: 06:44 WBC 5.9 RBC 4.10 Hgb 12.3 Hct 36.2 MCV 88 MCH 30.0 MCHC 33.9 RDW 17.5 H Plt Count 305 Seg Neutrophils % 62.0 Sodium 136.5 L 138.2 Potassium 5.1 H 5.1 H Chloride 101 104 Carbon Dioxide 28 27 Anion Gap 8 7 BUN 16 18 Creatinine 0.65 0.59 Est GFR ( Amer) > 60 > 60 Glucose 305 H 133 H Calcium 8.9 9.1 Magnesium 1.9 Total Bilirubin 0.5 AST 44 H Alkaline Phosphatase 76 Total Protein 6.5 Albumin 3.4 L 04/21/20 04/21/20 04/21/20 13:18 13:18 13:18 Creatine Kinase 106 CK-MB (CK-2) 1.38 Troponin I 0.014 NT-Pro-B Natriuret Pep 2890 H 04/21/20 04/24/20 19:45 13:18 Creatine Kinase CK-MB (CK-2) Troponin I < 0.012 < 0.012 NT-Pro-B Natriuret Pep Impressions: Chest X-Ray 04/21/20 00:00 IMPRESSION: Cardiomegaly and vascular congestion new from prior study. Assessment and Plan - Diagnosis (1) Acute on chronic systolic (congestive) heart failure Is this a current diagnosis for this admission?: Yes Plan: Started on diuresis with IV Lasix 40 mg twice daily. 1500 cc fluid restriction, daily weights, monitor on telemetry. Strict I's and O's. Monitor and replete electrolytes accordingly. We will resume lisinopril once blood pressure improves. Echocardiogram in September 2019 shows EF of 40 to 45% Cardiology consulted 04/22/20-patient is receiving Lasix 40 mg IV twice a day. On fluid restriction 1500 cc/day. As per cardiology recommendations to start on Entresto 24/26 mg p.o. twice a day. Latest echocardiogram shows EF of 40 to 45%. 04/23/2020-patient admitted with acute on chronic systolic heart failure on Lasix 40 mg p.o. daily. Also on fluid restriction 1500 cc/day patient is presently on Entresto. Latest echocardiogram shows EF 40 to 45%. 04/24/2020-patient admitted with acute on chronic systolic heart failure blood pressure is 101/60. To hold Entresto this morning. Plan is to also hold Lasix at this time. Patient is euvolemic at the time of examination. 04/25/2020-patient admitted with acute on chronic systolic heart failure patient is hypotensive not on Lasix not on Entresto at this time. 04/26/2020-patient blood pressures are running low systolic blood pressure is 88, Entresto and Lasix is on hold. Patient is not in fluid overload at this time. Patient complaining of feeling hypoglycemic plan is to start her on D5 normal saline at 75 cc/h. (2) Persistent atrial fibrillation with rapid ventricular response Is this a current diagnosis for this admission?: Yes Plan: On last admission, patient was unable to get cardioverted due to atrial a ppendage thrombus noted on ANDREI. I will resume patient's Toprol-XL IV Lopressor as needed We will give patient IV digoxin given her soft blood pressures to help control heart rate Telemetry monitoring. Continue Eliquis 04/22/2020-patient has history of chronic persistent atrial fibrillation on Eliqu is at home. Heart rate this morning is 76. Well controlled. Patient is presently on metoprolol 50 mg every 12 hours, Received 1 dose of digoxin yesterday. 04/23/20-patient admitted with persistent atrial fibrillation which is chronic with RVR. Presently on metoprolol 50 mg p.o. twice daily heart rate is around 65. Well-controlled. Plan is to continue Eliquis at this time. 04/24/2020-heart rate is around 67. Rate controlled A. fib. Plan is to continue the present management at this time. 04/25/2020-heart rate is around 140 and systolic blood pressure in the 90s. Metoprolol is on hold, to continue Eliquis at this time. Cardiology input is requested. 04/26/20-patient may go for a ANDREI with cardioversion today. (3) Dyspnea on exertion Is this a current diagnosis for this admission?: Yes Plan: 04/22/2020-patient came with complaints of shortness of breath with exertion denies any complaints at this time. Pulse ox is 97% room air. It may be secondary to A. fib with RVR and CHF exacerbation. 04/23/2020-dyspnea on exertion resolving pulse ox is 95% on room air today. 04/24/2020-pulse ox is 96% on room air comfortably in the bed laying flat denies any problems with breathing. (4) Hypotension Qualifiers: Hypotension type: other hypotension type Qualified Code(s): I95.89 - Other hypotension Is this a current diagnosis for this admission?: Yes Plan: May be secondary to heart failure or rapid A. fib. Did receive a liter bolus in ER will hold off on further fluids. BP is improved right now. Will monitor closely. Treatment of A. fib as above. 04/22/2020-blood pressure just now is 127/78. Hypotension resolved. She received a bolus of IV fluids in the ER. Not on IV fluids at this time. 04/24/2020-to hold Entresto at this time. 04/25/2020-systolic blood pressure in the 90s euvolemic, Lasix and Entresto on hold at this time. 04/26/2020-systolic blood pressures 88 plan is to continue hold the Lasix and Entresto patient may go for a ANDREI today. She is n.p.o. at this time. (5) Atrial thrombus Is this a current diagnosis for this admission?: No Plan: History of atrial appendage thrombus noted on ANDREI 5 months ago. Continue Eliquis. (6) Diabetes mellitus type 1 Is this a current diagnosis for this admission?: No Plan: Accu-Cheks, sliding scale, Lantus 04/22/2020-latest blood sugar is 118. To continue insulin sliding scale before meals and at bedtime and Lantus 20 units subcu daily. Diet exercise weight loss lifestyle modifications discussed with the patient and to check for hemoglobin A1c. 04/23/2020-hemoglobin A1c is 8.5. Presently on insulin sliding scale before meals and at bedtime and Lantus 20 units subcu daily. Blood sugar dropped to 44 last night. Plan is to continue to closely monitor the blood sugars before meals and at bedtime. 04/24/2020-latest blood sugar is 84. Plan is to closely monitor the blood sugars at this time. 04/25/2020-latest blood sugar is 301 plan is to restart Lantus 20 units subcu be dtime. (7) Acromegaly Is this a current diagnosis for this admission?: No - Time Anticipated Discharge Disposition: Home, Self Care Anticipated Discharge Timeframe: within 48 hours
[2020-04-26] MEDS ORDERED: FENTANYL CITRATE INJ/PF 100 MCG/2 ML AMPUL ONE (13:22)
[2020-04-26] MEDS ORDERED: ONDANSETRON HCL INJ/PF 4 MG/2 ML SDV ONE (13:22)
[2020-04-26] MEDS ORDERED: ONDANSETRON HCL INJ/PF 4 MG/2 ML SDV IV PRN (14:14)
[2020-04-26] MEDS ORDERED: DIPHENHYDRAMINE HCL 50 MG/ML VIAL IV PRN (14:14)
[2020-04-26] MEDS ORDERED: FENTANYL CITRATE INJ/PF 100 MCG/2 ML AMPUL IV PRN ×3 (14:14)
[2020-04-26] MEDS ORDERED: OXYCODONE-ACETAMINOPHEN 5-325 MG TABLET PO PRN ×2 (14:14)
[2020-04-26] MEDS ORDERED: PROMETHAZINE HCL INJ 25 MG/1 ML VIAL IV PRN ×2 (14:14)
[2020-04-26] MEDS ORDERED: MEPERIDINE HCL/PF INJ 25 MG/1 ML DISP.SYRIN IV PRN (14:14)
[2020-04-26] MEDS: PROMETHAZINE HCL INJ 25 MG/1 ML VIAL ONE ×2 (14:20→14:30)
--- NOTE | 2020-04-26 14:28 | Progress Note ---
Provider Note Provider Note: DIRECT CURRENT CARDIOVERSION Date : April 26 Procedure: Direct current cardioversion Anesthesia: General anesthesia Indication: Atrial fibrillation with rapid ventricular response Clinical history: 50-year-old male with persistent atrial fibrillation with mild LV dysfunction with been admitted to the hospital. On a previous visit in September 2019 transesophageal echocardiogram was performed which showed left atrial appendage thrombus and patient was not cardioverted. Transesophageal echocardiogram performed this time showed significant spontaneous echo contrast in the left atrial appendage as well as the left atrium but no convincing evidence of left atrial appendage thrombus. Thus we decided to proceed with direct-current cardioversion. PROCEDURE The patient was brought to the holding area fasting and nonsedated state. Informed consent was obtained prior to the procedure. General anesthesia was administered. Please see anesthesia notes for medication details. Transesophageal echocardiogram was initially performed which showed mild LV dysfunction with LVEF 40 % and mild mitral regurgitation, spontaneous echo contrast in both atria and elevated appendage but no convincing evidence of effusion appendage thrombus. Patient's presenting rhythm was atrial fibrillation with rapid ventricular response. The patient's EKG and vital signs were monitored throughout. Once the patient was comfortably sedated a single direct current biphasic 200 J shock was administered across defibrillator patches applied in anteroposterior fashion across the chest. This resulted in prompt catholic of sinus rhythm with frequent premature atrial complexes. The patient tolerated the procedure well. Conclusion Successful conversion of atrial fibrillation to sinus rhythm Plan Continue systemic anticoagulation-apixaban 5 mg twice daily without interruption Continue other cardiac medications
--- NOTE | 2020-04-26 19:11 | XCELERA REPORT ---
Study ID: [id number] [id number] Transesophageal Echocardiogram Report Name: URSZULA VANEGAS Age: 50 yrs Gender: Female : 1970 Patient Status: Inpatient Patient Location: [address] [place] [address] Study Date: 04/26/2020 11:28 AM History: Atrial fibrillation RVR NIELS thrombus Reason For Study: atrial fib/direct cardioversion Ordering Physician: CAR SANZ Performed By: Alyx Viramontes Interpretation Summary Left ventricular systolic function is mildly reduced. 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 Best estimate 40-45% The right ventricular systolic function is mildly reduced. No thrombus is detected in the left atrial appendage. Spontaneous contrast in LA. There is mild mitral regurgitation. No hemodynamically significant valvular aortic stenosis. There is no pericardial effusion. Procedure A complete two-dimensional transesophageal echocardiogram was performed (2D, spectral and color flow Doppler). Informed consent for Transesophageal Echocardiogram, and use of a contrast agent as needed, was obtained prior to the procedure. The patient was brought to the OR in a fasting state. An intravenous line was placed. A topical anesthetic agent was used for oropharangeal anesthesia. A bite block was inserted. IV conscious sedation was administered using per Anesthesia team. The patient's vital signs, including blood pressure, heart rate, pulse oximetry and cardiac rhythm were monitored thoughout the procedure. The transesophageal probe was passed without difficulty. The usual views were obtained; basal, mid-esophageal, transgastric and aortic views. The patient tolerated the procedure well without evidence of orophangeal or esophageal trauma. Subsequent to all the images being obtained the probe was removed with out trauma. Left Ventricle The left ventricle is borderline dilated. There is no thrombus. There is normal left ventricular wall thickness. 40-45%. Left ventricular systolic function is mildly reduced. There is mild global hypokinesis of the left ventricle. Right Ventricle The right ventricle is grossly normal size. The right ventricular systolic function is mildly reduced. Atria The interatrial septum is intact with no evidence for an atrial septal defect. The left atrium is moderately dilated. No thrombus is detected in the left atrial appendage. Spontaneous contrast in LA. Spontaneous contrast in left atrial appendage. The right atrium is mild to moderately dilated. Spontaneous contrast (smoke) is noted consistent with low-flow state. Mitral Valve The mitral valve is grossly normal. There is no mitral valve stenosis. There is mild mitral regurgitation. Tricuspid Valve The tricuspid valve is not well visualized, but is grossly normal. There is trace tricuspid regurgitation. Aortic Valve The aortic valve is trileaflet. The aortic valve opens well. No hemodynamically significant valvular aortic stenosis. No aortic regurgitation is present. Pulmonic Valve The pulmonic valve is not well visualized. Arteries The aortic root is not well visualized but is probably normal size. Pericardium There is no pericardial effusion. : CAR SANZ Anil
[2020-04-26] MEDS: ATORVASTATIN CALCIUM 40 MG TABLET PO SCH (23:04)
[2020-04-27] MEDS: METOPROLOL TARTRATE 25 MG TABLET PO SCH ×3 (06:56→17:48)
[2020-04-27] MEDS: OMEGA-3 ACID ETHYL ESTERS 1 GM CAPSULE PO SCH ×2 (07:29→17:48)
[2020-04-27] MEDS: INSULIN LISPRO 100 UNIT/ML 3 ML VIAL SUBCUT SCH ×4 (07:29→22:01)
[2020-04-27] MEDS: FUROSEMIDE 40 MG TABLET PO SCH (07:32)
[2020-04-27] MEDS: INSULIN GLARGINE,HUM.REC.ANLOG 1,000 UNIT/10 ML VIAL SUBCUT SCH (09:21)
[2020-04-27] MEDS: BROMOCRIPTINE MESYLATE 2.5 MG TABLET PO SCH (09:22)
[2020-04-27] MEDS: APIXABAN 5 MG TABLET PO SCH ×2 (09:22→17:48)
[2020-04-27] MEDS: CETIRIZINE 5 MG TABLET PO SCH (09:22)
[2020-04-27] MEDS: ONDANSETRON HCL INJ/PF 4 MG/2 ML SDV IV PRN ×2 (15:27→20:02)
[2020-04-27] MEDS: ACETAMINOPHEN 325 MG TABLET PO PRN (15:27)
--- NOTE | 2020-04-27 15:53 | PDOC DISCHARGE SUMMARY ---
Impression - Admit/DC Date/PCP Admission Date/Primary Care Provider: 04/21/20 15:49 KAILYN ADORNO NP Discharge Date: 04/27/20 - Discharge Diagnosis (1) Atrial fibrillation with rapid ventricular response Is this a current diagnosis for this admission?: Yes (2) Acute on chronic systolic (congestive) heart failure Is this a current diagnosis for this admission?: Yes (3) CHF exacerbation Is this a current diagnosis for this admission?: Yes (4) Dyspnea on exertion Is this a current diagnosis for this admission?: Yes (5) Hypotension Is this a current diagnosis for this admission?: Yes (6) Persistent atrial fibrillation with rapid ventricular response Is this a current diagnosis for this admission?: Yes (7) Acute congestive heart failure Is this a current diagnosis for this admission?: Yes (8) Acute systolic congestive heart failure Is this a current diagnosis for this admission?: Yes (9) Asthma, chronic Is this a current diagnosis for this admission?: Yes (10) Diabetes mellitus type 1 Is this a current diagnosis for this admission?: No (11) Longstanding persistent atrial fibrillation Is this a current diagnosis for this admission?: Yes - Additional Information Resuscitation Status: Full Code Discharge Diet: Cardiac, Diabetic Discharge Activity: Activity As Tolerated, Balance Activity w/Rest Referrals: KAILYN ADORNO NP [Primary Care Provider] - 05/12/20 11:40 am ([facility] is where the appointment will be. If you would like a Tele-visual, you may call them back for a faster appointment.) Prescriptions: Metoprolol Succinate [Toprol Xl 25 mg Tab.sr] 25 mg PO DAILY #30 tab.sr.24h Home Medications: Insulin Aspart [Novolog Flexpen] 0 unit SQ .PERSLIDINGSCALE 07/18/13 Acetaminophen [Acetaminophen Extra Strength] 500 mg PO DAILYP PRN 10/24/19 Atorvastatin Calcium [Lipitor 40 mg Tablet] 40 mg PO QHS 10/24/19 Bromocriptine Mesylate 10 mg PO QAM 10/24/19 Icosapent Ethyl [Vascepa] 1 gm PO BIDBS 10/24/19 Insulin Degludec [Tresiba Flextouch U-100] 20 unit SQ QHS 10/24/19 Apixaban [Eliquis 5 mg Tablet] 5 mg PO Q12 04/21/20 Furosemide [Lasix 40 mg Tablet] 40 mg PO QAM 04/21/20 Metoprolol Succinate [Toprol Xl 25 mg Tab.sr] 25 mg PO DAILY #30 tab.sr.24h 04/27/20 History of Present Illiness History of Present Illness: Per Admitting Physician: "URSZULA VANEGAS is a 50 year old female with history of CHF, persistent atrial fibrillation, diabetes, who presents to the hospital for evaluation of progressive shortness of breath at rest and on exertion. Her symptoms started 1 week ago. Also associated with a dry cough. Denies any significant sputum production. She admits to orthopnea and some episodes of PND. Denies any leg swelling but admits to increased abdominal girth. Exercise tolerance is also depreciated. Regarding her chest pain, she describes this as substernal which started about 2 days ago and occurs every now and then. Describes it being worse with exertion but does not improve with rest. Denies any nausea or vomi ting. Denies any history of heart attacks. Currently chest pain is mild and feels just like a tightness at this point. She denies any fevers or chills or sick COVID-19 exposures. Her [id number] is a nurse but has not shown any symptoms recently. Does not know all her medications to verify if she has been taking all of them but does states compliance. Admitted in September 2019 for similar reasons and ended up being discharged with plan to follow-up with Dr. Castro in outpatient." Hospital Course Hospital Course: URSZULA VANEGAS is a 50 year old female with history of CHF, persistent atrial fibrillation, diabetes, who presents to the hospital for evaluation of progressive shortness of breath at rest and on exertion. Her symptoms started 1 week ago. Also associated with a dry cough. Denies any significant sputum production. She admits to orthopnea and some episodes of PND. Denies any leg swelling but admits to increased abdominal girth. Exercise tolerance is also depreciated. Regarding her chest pain, she describes this as substernal which started about 2 days ago and occurs every now and then. Describes it being worse with exertion but does not improve with rest. Denies any nausea or vomiting. Denies any history of heart attacks. Currently chest pain is mild and feels just like a tightness at this point. She denies any fevers or chills or sick COVID-19 exposures. Her [id number] is a nurse but has not shown any symptoms recently. Does not know all her medications to verify if she has been taking all of them but does states compliance. Admitted in September 2019 for similar reasons and ended up being discharged with plan to follow-up with Dr. Castro in outpatient. 04/22/[id number]-ddgi-old female with history of congestive heart failure with EF of 40 to 45%, chronic persistent atrial fibrillation, type 2 diabetes mellitus admitted for increasing shortness of breath and orthopnea. Also complains of chest pains as per the cardiology it is musculoskeletal in nature. Cardiology consult was done recommendation is to start on Entresto 24/26 mg twice daily and fluid restriction 1500 cc/day. Patient is comfortably in the bed denies any problems requesting hOt coffee. 04/23/[id number]-wskc-old female with history of chronic CHF admitted for acute on chronic systolic heart failure exacerbation came in with shortness of breath and orthopnea. Patient is presently on fluid restriction 1500 cc/day, and Entresto. Cardiology signed off. Patient is on Lasix 40 mg p.o. daily at this time. Euvolemic at the time of my examination. 04/2407-61-ukri-old female admitted with acute on chronic systolic heart failure. Patient states she is feeling well and depressed. blood Pressure is 100/64. To hold Entresto at this time. Patient is euvolemic at the time of examination. 04/25/20-patient is hypotensive heart rate is around 140 in A. fib. Requested input from cardiology. Patient is asymptomatic comfortably in the bed communicating well. 04/26/2020-patient is n.p.o. for possible ANDREI and cardioversion today. (1) Acute on chronic systolic (congestive) heart failure resolved Is this a current diagnosis for this admission?: Yes Plan: Started on diuresis with IV Lasix 40 mg twice daily. 1500 cc fluid restriction, daily weights, monitor on telemetry. Strict I's and O's. Monitor and replete electrolytes accordingly. We will resume lisinopril once blood pressure improves. Echocardiogram in September 2019 shows EF of 40 to 45% Cardiology consulted 04/22/20-patient is receiving Lasix 40 mg IV twice a day. On fluid restriction 1500 cc/day. As per cardiology recommendations to start on Entresto 24/26 mg p.o. twice a day. Latest echocardiogram shows EF of 40 to 45%. 04/23/2020-patient admitted with acute on chronic systolic heart failure on Lasix 40 mg p.o. daily. Also on fluid restriction 1500 cc/day patient is presently on Entresto. Latest echocardiogram shows EF 40 to 45%. 04/24/2020-patient admitted with acute on chronic systolic heart failure blood pressure is 101/60. To hold Entresto this morning. Plan is to also hold Lasix at this time. Patient is euvolemic at the time of examination. 04/25/2020-patient admitted with acute on chronic systolic heart failure patient is hypotensive not on Lasix not on Entresto at this time. 04/26/2020-patient blood pressures are running low systolic blood pressure is 88, Entresto and Lasix is on hold. Patient is not in fluid overload at this time. Patient complaining of feeling hypoglycemic plan is to start her on D5 normal saline at 75 cc/h. 04/27/2020 Blood pressure still lower limit normal, Entresto remains stopped and lisinopril was not restarted at discharge, will continue Lasix and metoprolol as she seems to be tolerating this (2) Persistent atrial fibrillation with rapid ventricular response resolved Is this a current diagnosis for this admission?: Yes Plan: On last admission, patient was unable to get cardioverted due to atrial appendage thrombus noted on ANDREI. I will resume patient's Toprol-XL IV Lopressor as needed We will give patient IV digoxin given her soft blood pressures to help control heart rate Telemetry monitoring. Continue Eliquis 04/22/2020-patient has history of chronic persistent atrial fibrillation on Eliquis at home. Heart rate this morning is 76. Well controlled. Patient is presently on metoprolol 50 mg every 12 hours, Received 1 dose of digoxin yest erday. 04/23/20-patient admitted with persistent atrial fibrillation which is chronic with RVR. Presently on metoprolol 50 mg p.o. twice daily heart rate is around 65. Well-controlled. Plan is to continue Eliquis at this time. 04/24/2020-heart rate is around 67. Rate controlled A. fib. Plan is to continue the present management at this time. 04/25/2020-heart rate is around 140 and systolic blood pressure in the 90s. Metoprolol is on hold, to continue Eliquis at this time. Cardiology input is requested. 04/26/20-underwent ANDREI with cardioversion successfully. Back in sinus rhythm 04/27/2020: Patient discharged to home will need cardiology and PCP follow-up closely, continued on Eliquis and metoprolol (3) Dyspnea on exertion resolved Is this a current diagnosis for this admission?: Yes Plan: 04/22/2020-patient came with complaints of shortness of breath with exertion denies any complaints at this time. Pulse ox is 97% room air. It may be secondary to A. fib with RVR and CHF exacerbation. 04/23/2020-dyspnea on exertion resolving pulse ox is 95% on room air today. 04/24/2020-pulse ox is 96% on room air comfortably in the bed laying flat denies any problems with breathing. (4) Hypotension Qualifiers: Hypotension type: other hypotension type Qualified Code(s): I95.89 - Other hypotension Is this a current diagnosis for this admission?: Yes Plan: May be secondary to heart failure or rapid A. fib. Did receive a liter bolus in ER will hold off on further fluids. BP is improved right now. Will monitor closely. Treatment of A. fib as above. 04/22/2020-blood pressure just now is 127/78. Hypotension resolved. She received a bolus of IV fluids in the ER. Not on IV fluids at this time. 04/24/2020-to hold Entresto at this time. 04/25/2020-systolic blood pressure in the 90s euvolemic, Lasix and Entresto on hold at this time. 04/26/2020-systolic blood pressures 88 plan is to continue hold the Lasix and Entresto patient may go for a ANDREI today. She is n.p.o. at this time. (5) Atrial thrombus Is this a current diagnosis for this admission?: No Plan: History of atrial appendage thrombus noted on ANDREI 5 months ago. Continue Eliquis. (6) Diabetes mellitus type 1 Is this a current diagnosis for this admission?: No Plan: Accu-Cheks, sliding scale, Lantus 04/22/2020-latest blood sugar is 118. To continue insulin sliding scale before meals and at bedtime and Lantus 20 units subcu daily. Diet exercise weight loss lifestyle modifications discussed with the patient and to check for hemoglobin A1c. 04/23/2020-hemoglobin A1c is 8.5. Presently on insulin sliding scale before meals and at bedtime and Lantus 20 units subcu daily. Blood sugar dropped to 44 last night. Plan is to continue to closely monitor the blood sugars before meals and at bedtime. 04/24/2020-latest blood sugar is 84. Plan is to closely monitor the blood sugars at this time. 04/25/2020-latest blood sugar is 301 plan is to restart Lantus 20 units subcu bedtime. (7) Acromegaly Is this a current diagnosis for this admission?: No Physical Exam Vital Signs: Temp Pulse Resp BP Pulse Ox 98.2 F 75 18 99/59 L 96 04/27/20 11:21 04/27/20 14:00 04/27/20 11:21 04/27/20 11:21 04/27/20 11:21 Intake & Output 04/26/20 04/27/20 04/28/20 06:59 06:59 06:59 Intake Total 840 1000 Output Total 800 900 Balance 40 100 Weight 85.2 kg 85.2 kg General appearance: PRESENT: no acute distress, well-developed, well-nourished Head exam: PRESENT: atraumatic, normocephalic Eye exam: PRESENT: conjunctiva pink Mouth exam: PRESENT: moist Respiratory exam: PRESENT: clear to auscultation patrice. ABSENT: rales, rhonchi, wheezes Cardiovascular exam: PRESENT: RRR. ABSENT: diastolic murmur, rubs, systolic murmur GI/Abdominal exam: PRESENT: normal bowel sounds, soft. ABSENT: distended, guarding, mass, organolmegaly, rebound, tenderness Neurological exam: PRESENT: alert, awake, oriented to person, oriented to place, oriented to time, oriented to situation Psychiatric exam: PRESENT: appropriate affect, normal mood Skin exam: PRESENT: dry, intact, warm Results Laboratory Results: WBC 5.9 10^3/uL (4.0-10.5) 04/25/20 09:20 RBC 4.10 10^6/uL (3.72-5.28) 04/25/20 09:20 Hgb 12.3 g/dL (12.0-15.5) 04/25/20 09:20 Hct 36.2 % (36.0-47.0) 08/30/20 09:20 MCV 88 fl (80-97) 04/25/20 09:20 MCH 30.0 pg (27.0-33.4) 04/25/20 09:20 MCHC 33.9 g/dL (32.0-36.0) 04/25/20 09:20 RDW 17.5 % (11.5-14.0) H 04/25/20 09:20 Plt Count 305 10^3/uL (150-450) 04/25/20 09:20 Lymph % (Auto) 23.6 % (13-45) 04/25/20 09:20 Towner % (Auto) 9.5 % (3-13) 04/25/20 09:20 Eos % (Auto) 3.6 % (0-6) 04/25/20 09:20 Baso % (Auto) 1.3 % (0-2) 04/25/20 09:20 Absolute Neuts (auto) 3.6 10^3/uL (1.7-8.2) 04/25/20 09:20 Absolute Lymphs (auto) 1.4 10^3/uL (0.5-4.7) 04/25/20 09:20 Absolute Monos (auto) 0.6 10^3/uL (0.1-1.4) 04/25/20 09:20 Absolute Eos (auto) 0.2 10^3/uL (0.0-0.6) 04/25/20 09:20 Absolute Basos (auto) 0.1 10^3/uL (0.0-0.2) 04/25/20 09:20 Seg Neutrophils % 62.0 % (42-78) 04/25/20 09:20 PT 15.9 SEC (11.4-15.4) H 04/22/20 04:34 INR 1.25 04/22/20 04:34 APTT 35.7 SEC (23.5-35.8) 04/22/20 04:34 D-Dimer 0.61 ug/mL (0.00-0.50) H 04/22/20 04:34 Sodium 138.2 mmol/L (137-145) 04/26/20 06:44 Potassium 5.1 mmol/L (3.6-5.0) H 04/26/20 06:44 Chloride 104 mmol/L (98-107) 04/26/20 06:44 Carbon Dioxide 27 mmol/L (22-30) 04/26/20 06:44 Anion Gap 7 (5-19) 04/26/20 06:44 BUN 18 mg/dL (7-20) 04/26/20 06:44 Creatinine 0.59 mg/dL (0.52-1.25) 04/26/20 06:44 Est GFR ( Amer) > 60 (>60) 04/26/20 06:44 Est GFR (MDRD) Non-Af > 60 (>60) 04/26/20 06:44 Glucose 133 mg/dL (75-110) H 04/26/20 06:44 POC Glucose 188 mg/dL (70-110) H 04/27/20 11:18 Hemoglobin A1c % 8.5 % (4.7-6.0) H 04/22/20 04:34 Lactic Acid 0.8 mmol/L (0.7-2.1) 04/21/20 14:12 Calcium 9.1 mg/dL (8.4-10.2) 04/26/20 06:44 Magnesium 1.9 mg/dL (1.6-2.3) 04/25/20 09:20 Total Bilirubin 0.5 mg/dL (0.2-1.3) 04/25/20 09:20 Direct Bilirubin 0.3 mg/dL (0.0-0.4) 04/25/20 09:20 Neonat Total Bilirubin Not Reportable 04/25/20 09:20 Neonat Direct Bilirubin Not Reportable 04/25/20 09:20 Neonat Indirect Bili Not Reportable 04/25/20 09:20 AST 44 U/L (14-36) H 04/25/20 09:20 ALT 37 U/L (<35) H 04/25/20 09:20 Alkaline Phosphatase 76 U/L (38-126) 04/25/20 09:20 Creatine Kinase 106 U/L (30-135) 04/21/20 13:18 CK-MB (CK-2) 1.38 ng/mL (<4.55) 04/21/20 13:18 Troponin I < 0.012 ng/mL 04/24/20 13:18 NT-Pro-B Natriuret Pep 2890 pg/mL (<125) H 04/21/20 13:18 Total Protein 6.5 g/dL (6.3-8.2) 04/25/20 09:20 Albumin 3.4 g/dL (3.5-5.0) L 04/25/20 09:20 Triglycerides 52 mg/dL (<150) 04/22/20 04:34 Cholesterol 142.52 mg/dL (0-200) 04/22/20 04:34 LDL Cholesterol Direct 88 mg/dL (<100) 04/22/20 04:34 VLDL Cholesterol 10.0 mg/dL (10-31) 04/22/20 04:34 HDL Cholesterol 45 mg/dL (>40) 04/22/20 04:34 Digoxin < 0.40 ng/mL (0.8-2.0) L 04/21/20 13:18 COVID-19 Source NASOPHARYNGEAL 04/21/20 14:24 COVID-19 (ALENA) NOT DETECTED 04/21/20 14:24 04/21/20 04/21/20 04/21/20 13:18 13:18 19:45 CK-MB (CK-2) 1.38 Troponin I 0.014 < 0.012 NT-Pro-B Natriuret Pep 2890 H 04/24/20 13:18 CK-MB (CK-2) Troponin I < 0.012 NT-Pro-B Natriuret Pep Impressions: Chest X-Ray 04/21/20 00:00 IMPRESSION: Cardiomegaly and vascular congestion new from prior study. Plan Plan of Treatment: Follow-up with PCP Follow-up with cardiology Follow-up with endocrinology Time Spent: Greater than 30 Minutes Stroke Is this a Stroke Patient?: No Acute Heart Failure - Is this a Heart Failure Patient?: Yes Documentation of LVEF assessment?: Yes LVEF: LVEF Greater Than 40% Anticoagulant Therapy: Yes Discharged on Evidence-Based Beta Blockers: Yes Discharged on ARB?: No-document contraindications Reason(s) not Discharged on ARB: Hypotenson Discharged on ACEI?: No, document contraindications Reason(s) not Discharged on ACEI: Hypotension For LVEF <35%, discharged on Aldosterone Antagonist?: N/A (LVEF > or = 35%) Follow-up Appointment scheduled within 7 days?: Yes
[2020-04-27] MEDS ORDERED: BISMUTH SUBSALICYLATE 262 MG TAB.CHEW PO PRN (16:15)
[2020-04-27] MEDS: FAMOTIDINE 20 MG TABLET PO SCH (16:28)
[2020-04-27] MEDS: PROMETHAZINE HCL INJ 25 MG/1 ML VIAL IV PRN ×2 (16:29→22:06)
[2020-04-27] MEDS: DEXTROSE 50%-WATER 25 GM/50 ML DISP.SYRIN IV PRN (21:59)
[2020-04-27] MEDS: ATORVASTATIN CALCIUM 40 MG TABLET PO SCH (22:06)
[2020-04-28] MEDS: METOPROLOL TARTRATE 25 MG TABLET PO SCH ×3 (00:52→13:35)
[2020-04-28] MEDS: FAMOTIDINE 20 MG TABLET PO SCH (05:14)
[2020-04-28] MEDS: ACETAMINOPHEN 325 MG TABLET PO PRN (05:18)
[2020-04-28] MEDS: INSULIN LISPRO 100 UNIT/ML 3 ML VIAL SUBCUT SCH ×2 (07:51→13:35)
[2020-04-28] MEDS: FUROSEMIDE 40 MG TABLET PO SCH (08:54)
[2020-04-28] MEDS: OMEGA-3 ACID ETHYL ESTERS 1 GM CAPSULE PO SCH (08:54)
[2020-04-28 10:30] LABS: ABSOLUTE BASOPHILS # (AUTO) 0.1 10^3/uL (0.0-0.2); ABSOLUTE MONOCYTES (AUTO) 0.6 10^3/uL (0.1-1.4); HEMOGLOBIN 11.8 g/dL (12.0-15.5); RED CELL DISTRIBUTION WIDTH 17.2 % (11.5-14.0); TOTAL CELLS COUNTED % (AUTO) 100 %
[2020-04-28 10:37] LABS: ABSOLUTE EOSINOPHILS # (AUTO) 0.1 10^3/uL (0.0-0.6); ABSOLUTE LYMPHOCYTES (AUTO) 1.1 10^3/uL (0.5-4.7); ABSOLUTE NEUT (AUTO) 3.3 10^3/uL (1.7-8.2); BASOPHILS % (AUTO) 1.2 % (0-2); EOSINOPHILS % (AUTO) 2.7 % (0-6); LYMPHOCYTES % (AUTO) 21.6 % (13-45); MEAN CORPUSCULAR HEMOGLOBIN 29.5 pg (27.0-33.4); MEAN CORPUSCULAR HGB CONC 33.6 g/dL (32.0-36.0); MEAN CORPUSCULAR VOLUME 88 fl (80-97); MONOCYTES % (AUTO) 11.3 % (3-13); PLATELET COUNT 291 10^3/uL (150-450); RED BLOOD COUNT 3.99 10^6/uL (3.72-5.28); SEGMENTED NEUTROPHILS % (AUTO) 63.2 % (42-78); WHITE BLOOD COUNT 5.2 10^3/uL (4.0-10.5)
[2020-04-28 10:52] LABS: ANION GAP 5 (5-19); BLOOD UREA NITROGEN 8 mg/dL (7-20); CALCIUM 9.3 mg/dL (8.4-10.2); CARBON DIOXIDE 28 mmol/L (22-30); CHLORIDE 104 mmol/L (98-107); GLUCOSE 231 mg/dL (75-110); POTASSIUM 4.8 mmol/L (3.6-5.0)
[2020-04-28] MEDS: BROMOCRIPTINE MESYLATE 2.5 MG TABLET PO SCH (11:19)
[2020-04-28] MEDS: APIXABAN 5 MG TABLET PO SCH (11:20)
[2020-04-28] MEDS: CETIRIZINE 5 MG TABLET PO SCH (11:20)
[2020-04-28] MEDS: INSULIN GLARGINE,HUM.REC.ANLOG 1,000 UNIT/10 ML VIAL SUBCUT SCH (11:21)
--- NOTE | 2020-04-28 15:22 | Progress Note ---
Provider Note Provider Note: Patient seen and examined by me today. Patient was kept overnight despite being discharged because she had a flare of her chronic nausea/vomiting and headache. Patient states she has been experiencing these intermittently ever since she had a pituitary tumor removed in the past. I started her on Pepcid and the nausea and vomiting resolved. She is stable to be discharged today and I will continue the Pepcid at home. There are no significant changes in her physical exam from yesterday and she agrees that she would like to be discharged today. She must follow-up with her PCP, toe laster, and deli clerk.
[2020-04-28 20:06] VITALS: BP 111/68
--- NOTE | 2020-04-29 16:39 | Operative Report ---
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 On a previous visit in September 2019 transesophageal echocardiogram was performed which showed left atrial appendage thrombus and patient was not cardioverted. Transesophageal echocardiogram performed this time showed significant spontaneous echo contrast in the left atrial appendage as well as the left atrium but no convincing evidence of left atrial appendage thrombus. Thus we decided to proceed with direct-current cardioversion. PROCEDURE The patient was brought to the holding area fasting and nonsedated state. [facility] consent was obtained prior to the procedure. General anesthesia was administered. Please see anesthesia notes for medication details. Transesophageal echocardiogram was initially performed which showed mild LV dysfunction with LVEF 40 % and mild mitral regurgitation, spontaneous echo contrast in both atria and elevated appendage but no convincing evidence of effusion appendage thrombus. Patient's presenting rhythm was atrial fibrillation with rapid ventricular response. The patient's EKG and vital signs were monitored throughout. Once the patient was comfortably sedated a single direct current biphasic 200 J shock was administered across defibrillator patches applied in anteroposterior fashion across the chest. This resulted in prompt moravian of sinus rhythm with frequent premature atrial complexes. The patient tolerated the procedure well. Conclusion Successful conversion of atrial fibrillation to sinus rhythm Plan Continue systemic anticoagulation-apixaban 5 mg twice daily without interruption Continue other cardiac medications
== END 2020-04-28 17:52 | disposition home or self-care (01) | DRG 292 ==
LOC: ER 11:47 → EH 15:49 → 3W 17:47 → 4N 04-23 15:55
PROVIDERS: ADMIT Internal Medicine; ATTEND Internal Medicine
PROC: B24BZZ4 Ultrasonography of Heart with Aorta, Transesophageal (ICD-10-PCS; principal; 2020-04-26 12:00)
PROC: 5A2204Z Restoration of Cardiac Rhythm, Single (ICD-10-PCS; 2020-04-26 12:00)
DX: I11.0 Hypertensive heart disease with heart failure (principal); I48.11 Longstanding persistent atrial fibrillation; I50.23 Acute on chronic systolic (congestive) heart failure; R06.00 Dyspnea, unspecified; I51.3 Intracardiac thrombosis, not elsewhere classified; E10.9 Type 1 diabetes mellitus without complications; E22.0 Acromegaly and pituitary gigantism; E78.5 Hyperlipidemia, unspecified; F32.9 Major depressive disorder, single episode, unspecified; I95.89 Other hypotension; Z53.09 Procedure and treatment not carried out because of other contraindication; E78.00 Pure hypercholesterolemia, unspecified; Z79.4 Long term (current) use of insulin; Z11.59 Encounter for screening for other viral diseases; Z79.01 Long term (current) use of anticoagulants; Z87.891 Personal history of nicotine dependence; Z82.49 Family history of ischemic heart disease and other diseases of the circulatory system
CPT/HCPCS: 1922; 36415; 71045; 80048; 80053; 80061; 80162; 82550; 82553; 82962; 83036; 83605; 83735; 83880; 84484; 85025; 85027; 85379; 85610; 85730; 87635; 93005; 93010; 93312; 93325; 96360; 99285; C9803; J1160; J1815; J1940; J2270; J2405; J2550; J3010; J3490; J7030

== ENCOUNTER → 2020-09-06 | Outpatient (CLI) | payer MEDICARE, MEDICAID ==
[2020-09-06 13:32] LABS: HEMATOCRIT 35.7 % (36.0-47.0); HEMOGLOBIN 11.7 g/dL (12.0-15.5); MEAN CORPUSCULAR HGB CONC 32.8 g/dL (32.0-36.0); MEAN CORPUSCULAR VOLUME 92 fl (80-97); PLATELET COUNT 258 10^3/uL (150-450); RED CELL DISTRIBUTION WIDTH 15.6 % (11.5-14.0); WHITE BLOOD COUNT 5.7 10^3/uL (4.0-10.5)
[2020-09-06 13:44] LABS: APPEARANCE,URINE SLIGHTLY-CLOUDY; BILIRUBIN,URINE NEGATIVE (NEGATIVE); COLOR,URINE YELLOW; GLUCOSE, URINE NEGATIVE (NEGATIVE); KETONES,URINE NEGATIVE (NEGATIVE); PROTEIN,URINE NEGATIVE (NEGATIVE); URINE SPECIFIC GRAVITY 1.008; UROBILINOGEN,URINE NEGATIVE mg/dL (<2.0)
[2020-09-06 13:59] LABS: UR PRO/CREAT RATIO RESULT 0.7 mg/mg (0.0-0.2); URINE CREATININE 21.6 mg/dL (15-278); URINE PROTEIN 14.7 mg/dL (<12)
[2020-09-06 14:08] LABS: ALBUMIN 3.3 g/dL (3.5-5.0); ALKALINE PHOSPHATASE 82 U/L (38-126); ANION GAP 7 (5-19); ASPARTATE AMINO TRANSFERASE 88 U/L (14-36); BILIRUBIN,DIRECT 0.2 mg/dL (0.0-0.4); BILIRUBIN,TOTAL 0.4 mg/dL (0.2-1.3); BLOOD UREA NITROGEN 10 mg/dL (7-20); CALCIUM 9.1 mg/dL (8.4-10.2); CARBON DIOXIDE 29 mmol/L (22-30); CHLORIDE 105 mmol/L (98-107); GLUCOSE 178 mg/dL (75-110); POTASSIUM 4.4 mmol/L (3.6-5.0); TOTAL PROTEIN 6.5 g/dL (6.3-8.2)
== END ==
LOC: OD 12:14
PROVIDERS: ATTEND Internal Medicine Nephrology
DX: R80.1 Persistent proteinuria, unspecified (principal)
CPT/HCPCS: 36415; 80053; 81001; 82570; 84156; 85027; 87086; 87088; 87186